=== PATIENT | male | born 1955 | race Caucasian/White ===

== ENCOUNTER 2020-02-22 11:08 | Outpatient (REF) | payer MEDICARE, OTHER, SELFPAY ==
[2020-02-22 14:54] LABS: Alanine Aminotransferase 22 U/L (0-40); Alkaline Phosphatase 43 U/L (39-117); Aspartate Amino Transferase 19 U/L (5-37); Bilirubin Direct 0.3 mg/dL (0.0-0.5); Bilirubin Total 0.4 mg/dL (0.0-1.0); Blood Urea Nitrogen 21 mg/dL (9-16); Cholesterol 113 mg/dL; Estimated Glomerular Filt Rate 53; Glucose Random 115 mg/dL (60-115); HDL Cholesterol 35 mg/dL; Total Protein 6.7 g/dL (6.5-8.0)
[2020-02-22 15:21] LABS: Anion Gap 11 (12-20); Calcium 8.8 mg/dL (8.4-10.2); Carbon Dioxide 24 mmol/L (22-29); Chloride 111 mmol/L (96-108); LDL Cholesterol Calculated 58 mg/dl; Potassium 4.4 mmol/l (3.3-5.1); Sodium 142 mmol/L (135-145); Triglycerides 104 mg/dL
== END 2020-02-22 11:09 | disposition home or self-care (01) ==
LOC: HO.HMGCLDS 11:08
PROVIDERS: PCP Nurse Practitioner Family; Visit Provider Internal Medicine Cardiovascular Disease
DX: I10 Essential (primary) hypertension (principal); I25.10 Atherosclerotic heart disease of native coronary artery without angina pectoris; E78.00 Pure hypercholesterolemia, unspecified
CPT/HCPCS: 80048; 80061; 80076

== ENCOUNTER 2020-08-26 08:54 | Outpatient (REF) | payer MEDICARE, OTHER, SELFPAY ==
[2020-08-26 11:51] LABS: Alanine Aminotransferase 22 U/L (0-40); Albumin Level 4.1 g/dL (3.5-5.0); Alkaline Phosphatase 41 U/L (39-117); Anion Gap 13 (12-20); Aspartate Amino Transferase 17 U/L (5-37); Bilirubin Direct 0.3 mg/dL (0.0-0.5); Bilirubin Total 0.9 mg/dL (0.0-1.0); Blood Urea Nitrogen 32 mg/dL (9-16); Calcium 9.2 mg/dL (8.4-10.2); Carbon Dioxide 26 mmol/L (22-29); Chloride 108 mmol/L (96-108); Cholesterol 121 mg/dL; Estimated Glomerular Filt Rate 46; Glucose Random 113 mg/dL (60-115); HDL Cholesterol 35 mg/dL; LDL Cholesterol Calculated 69 mg/dl; Potassium 4.7 mmol/L (3.3-5.1); Sodium 142 mmol/L (135-145); Total Protein 6.9 g/dL (6.5-8.0); Triglycerides 89 mg/dL
== END 2020-08-26 08:55 | disposition home or self-care (01) ==
LOC: HO.HMGCLDS 08:54
PROVIDERS: PCP Nurse Practitioner Family; Visit Provider Internal Medicine Cardiovascular Disease
DX: E78.00 Pure hypercholesterolemia, unspecified (principal)
CPT/HCPCS: 36415; 80048; 80061; 80076

== ENCOUNTER 2020-10-10 13:27 | Outpatient (REF) | payer MEDICARE, OTHER, SELFPAY ==
[2020-10-10 14:30] LABS: MANUAL DIFF FLAG NO
[2020-10-10 14:36] LABS: Basophils Absolute Auto 0.1 X10*3/uL (0.0-0.2); Basophils Percent Auto 1.2 % (0-2); Eosinophils Absolute Auto 0.2 X10*3/uL (0.0-0.4); Eosinophils Percent Auto 4.1 % (0-4); Hematocrit 41.8 % (42-52); Imm Gran Abs Auto 0.01 X10*3/uL (0.00-0.03); Imm Gran Pct Auto 0.2 % (0.0-0.4); Lymphocytes Absolute Auto 1.3 X10*3/uL (1.2-4.9); Mean Corpuscular HGB Conc 33.5 g/dl (31.0-36.0); Mean Corpuscular Hemoglobin 29.1 pg (27.0-33.0); Mean Corpuscular Volume 86.9 fL (80-98); Mean Platelet Volume 10.1 fL (9.4-12.4); Monocytes Absolute Auto 0.5 X10*3/uL (0.1-1.2); Monocytes Percent Auto 9.2 % (2-11); Neutrophils Absolute Auto 3.1 X10*3/uL (2.0-8.3); Neutrophils Percent Auto 60.3 % (45-73); Platelet Count 197 X10*3/uL (160-400); Red Blood Count 4.81 X10*6/uL (4.60-5.80); Red Cell Distribution Width 13.3 % (11.0-16.0); White Blood Count 5.1 X10*3/uL (4.8-10.8)
[2020-10-10 14:41] LABS: INTERNATIONAL NORM RATIO 1.1 (0.9-1.1); Prothrombin Time 13.2 SEC (10.8-13.0)
[2020-10-10 14:46] LABS: Partial Thromboplastin Time 38.1 SEC (24.1-38.0)
[2020-10-10 14:49] LABS: Alanine Aminotransferase 19 U/L (0-40); Albumin Level 4.3 g/dL (3.5-5.0); Alkaline Phosphatase 47 U/L (39-117); Anion Gap 10 (12-20); Aspartate Amino Transferase 21 U/L (5-37); Bilirubin Total 1.2 mg/dL (0.0-1.0); Blood Urea Nitrogen 29 mg/dL (9-16); Calcium 9.3 mg/dL (8.4-10.2); Carbon Dioxide 24 mmol/L (22-29); Chloride 111 mmol/L (96-108); Estimated Glomerular Filt Rate 42; Glucose Random 99 mg/dL (60-115); Sodium 140 mmol/L (135-145)
== END 2020-10-10 13:28 | disposition home or self-care (01) ==
LOC: HO.HMGCLDS 13:27
PROVIDERS: PCP Nurse Practitioner Family; Visit Provider Nurse Practitioner Family
DX: Z01.818 Encounter for other preprocedural examination (principal); R79.89 Other specified abnormal findings of blood chemistry
CPT/HCPCS: 36415; 80053; 85025; 85610; 85730

== ENCOUNTER 2020-10-13 09:07 | Outpatient (REF) | payer MEDICARE, OTHER, SELFPAY ==
[2020-10-13 12:20] LABS: Blood Urea Nitrogen 23 mg/dL (9-16); Estimated Glomerular Filt Rate 49
== END 2020-10-13 09:08 | disposition home or self-care (01) ==
LOC: HO.HMGCLDS 09:07
PROVIDERS: PCP Nurse Practitioner Family; Visit Provider Nurse Practitioner Family
DX: R79.89 Other specified abnormal findings of blood chemistry (principal)
CPT/HCPCS: 36415; 82565; 84520

== ENCOUNTER 2020-10-25 10:41 | Outpatient (REF) | payer MEDICARE, OTHER, SELFPAY ==
[2020-10-25 14:32] LABS: Estimated Glomerular Filt Rate 52
== END 2020-10-25 10:42 | disposition home or self-care (01) ==
LOC: HO.HMGCLDS 10:41
PROVIDERS: PCP Nurse Practitioner Family; Visit Provider Nurse Practitioner Family
DX: R79.89 Other specified abnormal findings of blood chemistry (principal)
CPT/HCPCS: 36415; 82565

== ENCOUNTER 2022-04-25 06:40 | Outpatient (REF) | payer MEDICARE, OTHER, SELFPAY ==
[2022-04-25 11:35] LABS: Cholesterol 123 mg/dL; HDL Cholesterol 35 mg/dL; LDL Cholesterol Calculated 69 mg/dl; Triglycerides 97 mg/dL
== END 2022-04-25 06:41 | disposition home or self-care (01) ==
LOC: HO.HMGCLDS 06:40
PROVIDERS: Visit Provider Radiology Diagnostic Ultrasound
DX: I25.10 Atherosclerotic heart disease of native coronary artery without angina pectoris (principal)
CPT/HCPCS: 36415; 80061

== ENCOUNTER 2022-10-23 09:27 | Outpatient (REF) | payer MEDICARE, OTHER, SELFPAY ==
[2022-10-23 11:23] LABS: MANUAL DIFF FLAG NO
[2022-10-23 11:35] LABS: Basophils Absolute Auto 0.1 X10*3/uL (0.0-0.2); Basophils Percent Auto 1.4 % (0-2); Eosinophils Absolute Auto 0.4 X10*3/uL (0.0-0.4); Eosinophils Percent Auto 6.8 % (0-4); Hematocrit 37.7 % (42.0-52.0); Hemoglobin 12.6 g/dl (14.0-18.0); Imm Gran Abs Auto 0.01 X10*3/uL (0.00-0.03); Imm Gran Pct Auto 0.2 % (0.0-0.4); Lymphocytes Absolute Auto 1.5 X10*3/uL (1.2-4.9); Lymphocytes Percent Auto 25.3 % (20-40); Mean Corpuscular HGB Conc 33.4 g/dl (31.0-36.0); Mean Corpuscular Hemoglobin 29.3 pg (27.0-33.0); Mean Corpuscular Volume 87.7 fL (80.0-98.0); Mean Platelet Volume 10.4 fL (9.4-12.4); Monocytes Absolute Auto 0.5 X10*3/uL (0.1-1.2); Monocytes Percent Auto 8.4 % (2-11); Neutrophils Absolute Auto 3.4 x10*3/uL (2.0-8.3); Neutrophils Percent Auto 57.9 % (45-73); Platelet Count 193 X10*3/uL (160-400); Red Cell Distribution Width 13.7 % (11.0-16.0); White Blood Count 5.9 X10*3/uL (4.8-10.8)
[2022-10-23 11:48] LABS: Appearance Urine Clear; Color Urine Yellow; Glucose Urine UA Negative (Negative); Leukocyte Esterase Urine Negative (Negative); Nitrite Urine Negative (Negative); PH 5.5 (5.0-9.0); UMIC TRIGGER UACC YES; Urine Blood Negative (Negative); Urine Ketones Negative (Negative); Urine Protein 30 (1+) mg/dL (Neg-Trace)
[2022-10-23 11:51] LABS: Bacteria Urine None Seen (None Seen); RBC Urine 0-2 /HPF (0-2); Squamous Epithelial Cell Urine 0-2 /HPF (0-2); WBC Urine 0-5 /HPF (0-5)
[2022-10-23 12:18] LABS: Prostate Specific Antigen Scr 1.17 ng/mL (<0.05-4.0)
[2022-10-23 12:20] LABS: Alanine Aminotransferase 21 U/L (0-40); Albumin Level 3.9 g/dL (3.5-5.0); Alkaline Phosphatase 41 U/L (39-117); Anion Gap 9 (12-20); Aspartate Amino Transferase 17 U/L (5-37); Bilirubin Total 0.8 mg/dL (0.0-1.0); Blood Urea Nitrogen 30 mg/dL (9-16); Carbon Dioxide 23 mmol/L (22-29); Chloride 111 mmol/L (96-108); Cholesterol 103 mg/dL; Estimated Glomerular Filt Rate 47; Glucose Fasting 110 mg/dL (60-99); HDL Cholesterol 29 mg/dL; LDL Cholesterol Calculated 60 mg/dl; Potassium 4.4 mmol/L (3.3-5.1); Sodium 139 mmol/L (135-145); TSH reflex Free T4 1.75 uIU/mL (0.32-4.0); Total Protein 6.8 g/dL (6.5-8.0); Triglycerides 71 mg/dL
== END 2022-10-23 09:28 | disposition home or self-care (01) ==
LOC: HO.HMGCLDS 09:27
PROVIDERS: PCP Nurse Practitioner Family; Visit Provider Nurse Practitioner Family
DX: Z12.5 Encounter for screening for malignant neoplasm of prostate (principal); I10 Essential (primary) hypertension
CPT/HCPCS: 36415; 80053; 80061; 81001; 84153; 84443; 85025

== ENCOUNTER 2022-10-29 10:37 | Outpatient (REF) | payer MEDICARE, OTHER, SELFPAY ==
[2022-10-29 14:06] LABS: MANUAL DIFF FLAG NO
[2022-10-29 14:13] LABS: Basophils Absolute Auto 0.1 X10*3/uL (0.0-0.2); Basophils Percent Auto 1.1 % (0-2); Eosinophils Absolute Auto 0.3 X10*3/uL (0.0-0.4); Eosinophils Percent Auto 5.2 % (0-4); Hematocrit 37.3 % (42.0-52.0); Hemoglobin 12.7 g/dl (14.0-18.0); Imm Gran Abs Auto 0.02 X10*3/uL (0.00-0.03); Imm Gran Pct Auto 0.4 % (0.0-0.4); Lymphocytes Absolute Auto 1.1 X10*3/uL (1.2-4.9); Lymphocytes Percent Auto 20.4 % (20-40); Mean Corpuscular Hemoglobin 29.6 pg (27.0-33.0); Mean Corpuscular Volume 86.9 fL (80.0-98.0); Mean Platelet Volume 10.5 fL (9.4-12.4); Monocytes Absolute Auto 0.4 X10*3/uL (0.1-1.2); Monocytes Percent Auto 7.7 % (2-11); Neutrophils Absolute Auto 3.5 x10*3/uL (2.0-8.3); Neutrophils Percent Auto 65.2 % (45-73); Platelet Count 200 X10*3/uL (160-400); Red Blood Count 4.29 X10*6/uL (4.60-5.80); Red Cell Distribution Width 13.6 % (11.0-16.0); White Blood Count 5.3 X10*3/uL (4.8-10.8)
[2022-10-29 14:14] LABS: Immature Retic Fraction 14.5 % (2.3-13.4); Retic HGB Equivalent 33.1 pg (30.0-35.0); Reticulocyte Percent 1.7 % (0.5-1.8); Reticulocytes Absolute 0.072 X10*6/uL (0.026-0.095)
[2022-10-29 14:21] LABS: Appearance Urine Clear; Color Urine Yellow; Glucose Urine UA Negative (Negative); Leukocyte Esterase Urine Negative (Negative); Nitrite Urine Negative (Negative); UMIC TRIGGER UACC YES; Urine Blood Negative (Negative); Urine Ketones Negative (Negative); Urine Protein 100 (2+) mg/dL (Neg-Trace)
[2022-10-29 14:33] LABS: Iron 92 mcg/dL (45-160); Percent Iron Saturation 30 % (15-50); Total Iron Binding Capacity 305 mcg/dL (228-428); Unsaturated Iron Binding 213 ug/dL
[2022-10-29 14:38] LABS: Bacteria Urine None Seen (None Seen); Hyaline Casts Urine 0-2 /LPF (0-2); RBC Urine 0-2 /HPF (0-2); Squamous Epithelial Cell Urine 0-2 /HPF (0-2); WBC Urine 0-5 /HPF (0-5)
[2022-10-29 14:52] LABS: Ferritin 100 ng/mL (20-250)
[2022-10-29 14:59] LABS: Folate 14.2 ng/mL (> or = 4.0); Vitamin B12 576 pg/mL (200-900)
[2022-10-30 17:04] LABS: Anion Gap 10 (12-20)
[2022-10-30 17:08] LABS: Alanine Aminotransferase 18 U/L (0-40); Alkaline Phosphatase 41 U/L (39-117); Aspartate Amino Transferase 18 U/L (5-37); Bilirubin Total 0.9 mg/dL (0.0-1.0); Blood Urea Nitrogen 23 mg/dL (9-16); Calcium 9.5 mg/dL (8.4-10.2); Carbon Dioxide 25 mmol/L (22-29); Chloride 110 mmol/L (96-108); Estimated Glomerular Filt Rate 47; Glucose Random 108 mg/dL (60-115); Sodium 140 mmol/L (135-145); Total Protein 6.8 g/dL (6.5-8.0)
== END 2022-10-29 10:38 | disposition home or self-care (01) ==
LOC: HO.HMGCLDS 10:37
PROVIDERS: PCP Nurse Practitioner Family; Visit Provider Nurse Practitioner Family
DX: R79.89 Other specified abnormal findings of blood chemistry (principal)
CPT/HCPCS: 36415; 80053; 81001; 82607; 82728; 82746; 83540; 85025; 85045

== ENCOUNTER 2022-10-30 | Outpatient (REF) | payer MEDICARE, OTHER, SELFPAY ==
[2022-10-31 12:18] LABS: FIT Int Ctl YES; FIT1 NEGATIVE (NEGATIVE); FIT2 NEGATIVE (NEGATIVE)
== END 2022-10-30 00:01 | disposition home or self-care (01) ==
LOC: HO.LNP
PROVIDERS: Visit Provider Nurse Practitioner Family
DX: R79.89 Other specified abnormal findings of blood chemistry (principal)
CPT/HCPCS: 82274

== ENCOUNTER 2022-10-31 08:40 | Outpatient (REF) | payer MEDICARE, OTHER, SELFPAY | END 2022-10-31 08:41 | disposition home or self-care (01) | LOC: HO.HMGCLNP 08:40 | PROVIDERS: PCP Nurse Practitioner Family; Visit Provider Nurse Practitioner Family | DX: Z13.89 Encounter for screening for other disorder (principal) | CPT/HCPCS: 82274 ==

== ENCOUNTER 2022-12-28 07:12 | Day surgery (SDC) | payer MEDICARE, OTHER, SELFPAY ==
--- NOTE | 2022-12-27 12:16 | HO.ANESPROP2 ---
Documented by User: Becki Alberto NP 12/27/22 14:35 HPI - Anesthesia Eval Consult details Narrative: 67yo M for Colonoscopy Follows [facility] for CAD with PA/stents 2006, 2017 and afib (no OAC). Stable from cardiac standpoint with weight loss and walking per last office visit 10/2022. [facility] Active Problems Active Problems: All Active Problems (Updated 10/23/22 @ 12:53 by Tyler Adams, [facility]) Elevated serum creatinine (Acute) Screening for colon cancer (Acute) Encounter for prostate cancer screening (Acute) HTN (hypertension) (Acute) Gout flare (Acute) Pre-op evaluation (Acute) Left hip pain (Acute) Lower back pain (Acute) Past Medical History Medical History Coronary artery disease Dyslipidemia Elevated serum creatinine Gout HTN (hypertension) Multiple lipomas Myocardial infarct Osteoarthritis Paroxysmal A-fib PVD (peripheral vascular disease) Family History Family History Father Substance use disorder Mother No problems noted. Brother No problems noted. Sister No problems noted. Son No problems noted. Daughter No problems noted. Surgical History Surgical History H/O heart artery stent No pertinent past surgical history Stented coronary artery Social History Social History Housing: House Alcohol intake: current Alcohol intake frequency: a few times a week Patient Tobacco Use Status: Former Tobacco user Quit Date: 15 years ago e-Cigarette/Vaping Use: Never Used Second Hand Smoke Exposure: No Use of substances other than those prescribed or required for medical reasons: No Are you DNR?: No Advance Directives: No Advance Directives Information Provided: Yes service: No Current occupational status: retired Cognitive needs: No Hearing needs: No Vision needs: No Meds Allergies Allergy/AdvReac Type Severity Reaction Status Date / Time Sulfa (Sulfonamide Allergy Unknown CHILDHOOD- Verified 10/09/22 13:28 Antibiotics) ? RXN, as [SULFA(SULFONAMIDE a child ANTIBIOTICS)] Home Medications Medication Instructions Recorded Confirmed Last Taken Type aspirin 81 mg tablet,delayed 81 mg PO DAILY 03/09/20 12/28/22 12/28/22 History release (Adult Low Dose Aspirin) dorzolamide 22.3 mg-timolol 6.8 1 drp ophthalmic (eye) BID 03/09/20 12/28/22 Unknown History mg/mL eye drops latanoprost 0.005 % eye drops 1 drp ophthalmic (eye) DAILY 03/09/20 12/28/22 Unknown History lisinopril 40 mg tablet 40 mg PO DAILY 03/09/20 12/28/22 12/28/22 History rosuvastatin 40 mg tablet (Crestor) 40 mg PO DAILY 03/09/20 12/28/22 12/28/22 History amlodipine 10 mg tablet 10 mg PO DAILY 10/09/22 12/28/22 12/28/22 History metoprolol succinate 100 mg 100 mg PO DAILY 10/09/22 12/28/22 12/28/22 History tablet,extended release 24 hr Exam Exam Date and Time: December 27, 2022 1216 Pertinent Lab Results Pertinent Lab Results: Laboratory Tests 10/29/22 10/29/22 10:42 10:42 WBC 5.3 Hgb 12.7 L Hct 37.3 L Plt Count 200 Sodium 140 Potassium 5.0 Chloride 110 H Carbon Dioxide 25 BUN 23 H Creatinine 1.49 H Narrative Narrative: EKG 10/2022 SB @ 49 Assessment and Plan Assessment Anesthesia Assessment: Chart Reviewed Documented by User: Inez Rucker MD 12/28/22 09:58 [facility] Past Medical History Medical History Coronary artery disease Dyslipidemia Elevated serum creatinine Gout HTN (hypertension) Multiple lipomas Myocardial infarct Osteoarthritis Paroxysmal A-fib PVD (peripheral vascular disease) Family History Family History Father Substance use disorder Mother No problems noted. Brother No problems noted. Sister No problems noted. Son No problems noted. Daughter No problems noted. Surgical History Surgical History H/O heart artery stent No pertinent past surgical history Stented coronary artery History of Problems with Anesthesia: No Social History Social History Housing: House Alcohol intake: current Alcohol intake frequency: a few times a week Patient Tobacco Use Status: Former Tobacco user Quit Date: 15 years ago e-Cigarette/Vaping Use: Never Used Second Hand Smoke Exposure: No Use of substances other than those prescribed or required for medical reasons: No Are you DNR?: No Advance Directives: No Advance Directives Information Provided: Yes service: No Current occupational status: retired Cognitive needs: No Hearing needs: No Vision needs: No Meds Allergies Allergy/AdvReac Type Severity Reaction Status Date / Time Sulfa (Sulfonamide Allergy Unknown CHILDHOOD- Verified 10/09/22 13:28 Antibiotics) ? RXN, as [SULFA(SULFONAMIDE a child ANTIBIOTICS)] Home Medications Medication Instructions Recorded Confirmed Last Taken Type aspirin 81 mg tablet,delayed 81 mg PO DAILY 03/09/20 12/28/22 12/28/22 History release (Adult Low Dose Aspirin) dorzolamide 22.3 mg-timolol 6.8 1 drp ophthalmic (eye) BID 03/09/20 12/28/22 Unknown History mg/mL eye drops latanoprost 0.005 % eye drops 1 drp ophthalmic (eye) DAILY 03/09/20 12/28/22 Unknown History lisinopril 40 mg tablet 40 mg PO DAILY 03/09/20 12/28/22 12/28/22 History rosuvastatin 40 mg tablet (Crestor) 40 mg PO DAILY 03/09/20 12/28/22 12/28/22 History amlodipine 10 mg tablet 10 mg PO DAILY 10/09/22 12/28/22 12/28/22 History metoprolol succinate 100 mg 100 mg PO DAILY 10/09/22 12/28/22 12/28/22 History tablet,extended release 24 hr Exam Airway Neck ROM: Full Denture: Upper Loose/Missing/Broken Teeth: Yes and Upper Heart: RRR Lungs: CTA Assessment and Plan Assessment Anesthesia Assessment: Anesthesia Plan Discussed Final Anesthetic Review History of Problems with Anesthesia: No NPO: Yes ASA Class: III Final Preanesthetic Review: Meds/Allgs Chart Reviewed, Consent Obtained/Reviewed and Anes Risks/Benef Reviewed Patient Risk: Intermediate Procedure Risk: Low Anesthetic Plan Anesthetic Plan: MAC: Disposition: Standard PACU
[2022-12-28 08:34] VITALS: BMI 34.3
[2022-12-28 08:38] VITALS: BMI 34.3
[2022-12-28 08:50] VITALS: BP 141/73; PULSE 54; RESP 18; TEMP 36.1; O2SAT 97
[2022-12-28] MEDS: Lactated Ringers 1,000 ML 100 ML IVCONT (09:08)
--- NOTE | 2022-12-28 09:41 | MHC.SHP ---
Pre-Procedural Eval Section A Date of Service: 12/28/22 Section B Chief Complaint: Hemorrhage of anus and rectum Details of Present Illness: see h&p no changes Relevant Family History (Specify if Yes): No Relevant Social History: None Present Medications: see Short Stay Collaborative assessment Medical History: No relevant PMH History of Previous Operations: No relevant previous surgery Allergies: Allergies Allergy/AdvReac Type Severity Reaction Status Date / Time Sulfa (Sulfonamide Allergy Unknown CHILDHOOD- Verified 10/09/22 13:28 Antibiotics) ? RXN, as [SULFA(SULFONAMIDE a child ANTIBIOTICS)] Review of Systems Sugical H&P ROS: Negative: Constitution, Cardiovascular, Respiratory, Neurological, Psychiatric, Hem-Onc, Allergic/Immunologic, Gastrointestinal, Genitourinary, Musculoskeletal, Integumentary, Endocrine and Eyes/Ears/Nose/Throat Exam Surgical H&P Exam: Normal: HEENT, Normal: Heart, Normal: Lungs, Normal: Extremities, Normal: Abdomen, Normal: Skin and Normal: Neurological Plan Diagnosis/Plan: Unchanged I have reviewed the history and physical and performed a pertinent physical examination on my patient. No changes have occurred unless specified. Time Spent With Patient Time: Total time managing care of this patient today ____ minutes.
[2022-12-28 10:17] VITALS: BP 140/47; PULSE 46; RESP 20; TEMP 36.2; O2SAT 98
--- NOTE | 2022-12-28 10:21 | PM.OP ---
Brief Operative Note Date of Service: 12/28/22 Pre-op diagnosis: screening Post-op diagnosis: same Procedure: colonoscopy Surgeon: Lewis Pozo Anesthesia: MAC Was an Mat Cleaning Machine Operator used for this Procedure?: No Estimated blood loss (mL): 0 Pathology: other Condition: stable Disposition: PACU
[2022-12-28 10:32] VITALS: BP 129/70; PULSE 48; RESP 18; TEMP 36.1; O2SAT 98
--- NOTE | 2022-12-28 10:51 | OP_ITS ---
DATE OF SERVICE: 12/28/2022 SURGEON: Lewis Pozo MD INDICATIONS: Colon cancer screening, prior history of adenomatous colon polyps. PREOPERATIVE DIAGNOSIS: POSTOPERATIVE DIAGNOSIS: PROCEDURE PERFORMED: Colonoscopy to the terminal ileum. ESTIMATED BLOOD LOSS: COMPLICATIONS: ANESTHESIA: Monitored anesthesia care. ASSISTANTS: SPECIMENS: DESCRIPTION OF PROCEDURE: A history and physical was performed. The risks and benefits of the procedure were explained to the patient. Informed consent was obtained. The patient was placed in left lateral decubitus position. A digital rectal exam was performed and was found to be normal. The Olympus pediatric video colonoscope was introduced into the rectum and advanced to the cecum. The cecum was identified by transillumination, palpation, and identification of the ileocecal valve. Examination was performed. The scope was removed. He tolerated the procedure well and was returned to the recovery area in stable condition. FINDINGS: The terminal ileum was examined and appeared normal. The visualized colonic mucosa was normal. The quality of the prep was good. No polyps were identified. There was mild sigmoid diverticulosis. Retroflexed examination showed moderate-sized internal hemorrhoids. IMPRESSION: Normal screening colonoscopy. RECOMMENDATION: 1. Follow up as needed. 2. Repeat colonoscopy is recommended in 10 years for average risk individuals. This will be optional based on the patient's current age. MD NEFTALI Fortune/WILIAN / [phone]
== END 2022-12-28 11:10 | disposition home or self-care (01) ==
PROVIDERS: PCP Nurse Practitioner Family; Visit Provider Internal Medicine Gastroenterology
PROC: 0DJD8ZZ Inspection of Lower Intestinal Tract, Via Natural or Artificial Opening Endoscopic (ICD-10-PCS; CPT 45378; principal; 2022-12-28 08:50)
DX: Z12.11 Encounter for screening for malignant neoplasm of colon (principal); Z86.010 Personal history of colon polyps; K57.30 Diverticulosis of large intestine without perforation or abscess without bleeding; K64.8 Other hemorrhoids; I25.10 Atherosclerotic heart disease of native coronary artery without angina pectoris; Z95.5 Presence of coronary angioplasty implant and graft; I25.2 Old myocardial infarction; I10 Essential (primary) hypertension; E78.5 Hyperlipidemia, unspecified; Z79.82 Long term (current) use of aspirin; Z79.899 Other long term (current) drug therapy; Z87.891 Personal history of nicotine dependence
CPT/HCPCS: G0105

== ENCOUNTER 2023-12-14 09:17 | Outpatient (AMB) | payer MEDICARE, OTHER, SELFPAY ==
[2023-12-14 10:07] VITALS: BP 140/72; PULSE 72; TEMP 36.6; O2SAT 97
--- NOTE | 2023-12-14 10:07 | MHC.OFFWIV ---
Intake Vital Signs 12/14/23 10:07 Height 5 ft 10 in BP 140/72 H Blood Pressure Location Lt brachial Position Sitting Pulse 72 Pulse Source Pulse Oximeter Temp 97.8 F Temp Source Oral Pulse Oximetry (%) 97 Oxygen Delivery Method Room Air Intake Visit Reasons: EP RT toe Gout/injury Intake Note: pt is here for right toe gout Patient Tobacco Use Status: Former Tobacco user Allergies Sulfa (Sulfonamide Antibiotics) [SULFA(SULFONAMIDE ANTIBIOTICS)] Allergy (Unknown, Verified 12/17/23 10:11) CHILDHOOD- ? RXN, as a child Do you need a note to return to daycare/school/sports/work: No HPI EP RT toe Gout/injury HPI Details Patient is a 68-year-old male who comes to the walk-in clinic complaining of persistent swelling and redness to the right toe. Reports that he has a known history of gout, and is not on prophylactic medication, and does not have a standing order for medication to treat flare-ups. He reports he has had multiple flare-ups over the last few years, and had discussed it with forensic nurse who mentioned in his last note writing him colchicine if his BNP had improved. He reports that his symptoms of pain have been definitely improved, the toe is still swollen red and warm to the touch. He discuss this with his nurse girlfriend who reports that she is worried about cellulitis. Patient denies any symptoms of fever or chills, weakness or dizziness, myalgias or malaise or other associated symptoms. [facility] Medical History Stage 3 chronic kidney disease Elevated serum creatinine Gout Multiple lipomas PVD (peripheral vascular disease) Osteoarthritis Dyslipidemia Myocardial infarct HTN (hypertension) Paroxysmal A-fib Coronary artery disease Surgical History Stented coronary artery H/O heart artery stent No pertinent past surgical history Family History Father Substance use disorder Mother No problems noted. Brother No problems noted. Sister No problems noted. Son No problems noted. Daughter No problems noted. Social History Housing: House Alcohol intake: current Alcohol intake frequency: a few times a week Patient Tobacco Use Status: Former Tobacco user e-Cigarette/Vaping Use: Never Used Second Hand Smoke Exposure: No service: No Current occupational status: retired Cognitive needs: No Hearing needs: No Vision needs: No Physical Exam Vital Signs: Last Vital Signs Temp 97.8 F 12/14/23 10:07 Pulse 72 12/14/23 10:07 BP 140/72 H 12/14/23 10:07 Pulse Ox 97 12/14/23 10:07 Oxygen Delivery Method Room Air 12/14/23 10:07 Extrem Other: Patient has edema to the MCP and PIP of the right great toe, with no appreciable erythema or warmth. He has limited flexion at the joints. Neurovascularly intact distally with good cap refill. No deformity, ecchymosis or other likely trauma besides the edema. Assessment & Plan Assessment & Plan (1) Gout: Code(s): M10.9 - Gout, unspecified Qualifiers: Chronicity: chronic Gout etiology: unspecified cause Gout site: toe Laterality: right Presence of tophus: without tophus Qualified Code(s): M1A.9XX0 - Chronic gout, unspecified, without tophus (tophi) Plan Patient is a 68-year-old male with delayed recurrent presentation of gout to the right toe. He reports that his pain level has improved significantly, however he still has persistent swelling and a little redness and warmth to the joint a few weeks out from flare up. Likely this is due to not treating the flare up early, and then there was blunt trauma when he struck the toe on a step. Plain film x-ray today of the foot shows some visible arthritic changes which may be due to gouty arthritis, but no acute trauma. Due to him being on anticoagulation, it is most appropriate to use colchicine for recurrent flare ups, per forensic nurse note. His forensic nurse was surprised that he did not have a colchicine prescription already, and had offered to write it for him if his repeat BMP showed improved kidney function. Therefore, I wrote him an order to have that checked today, and he can have a temporary refill to see if this flare-up improves more with colchicine. He has follow-up with PCP soon also, and can discuss this further with him at that point. 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
== END 2023-12-14 11:15 | disposition home or self-care (01) ==
PROVIDERS: PCP Nurse Practitioner Family; Visit Provider Physician Assistant Medical
DX: M1A.9XX0 Chronic gout, unspecified, without tophus (tophi) (principal)
CPT/HCPCS: 99214

== ENCOUNTER 2023-12-14 10:45 | Outpatient (REF) | payer MEDICARE, OTHER, SELFPAY ==
--- NOTE | ~2023-12-14 | XR_ITS ---
EXAMINATION: XR FOOT, RIGHT CLINICAL INFORMATION: Pain COMPARISON: None available. TECHNIQUE: AP, lateral, and oblique views of the right foot. FINDINGS: No acute visible fracture or dislocation. Multi joint arthritic changes. Plantar calcaneal heel spur. Mild spurring the dorsal midfoot and forefoot. Joint space alignment otherwise maintained. Soft tissues are unremarkable. XR/XR foot RT min 3V IMPRESSION: 1. No acute visible fracture or dislocation. 2. Multi joint arthritic changes.
[2023-12-14 13:14] LABS: Anion Gap 12 (12-20); Blood Urea Nitrogen 16 mg/dL (9-16); Calcium 9.6 mg/dL (8.4-10.2); Carbon Dioxide 24 mmol/L (22-29); Chloride 110 mmol/L (96-108); Estimated Glomerular Filt Rate 51; Glucose Random 107 mg/dL (60-115); Potassium 4.5 mmol/L (3.3-5.1); Sodium 141 mmol/L (135-145)
== END 2023-12-14 10:46 | disposition home or self-care (01) ==
LOC: HO.HMGCX 10:45
PROVIDERS: PCP Nurse Practitioner Family; Visit Provider Physician Assistant Medical
DX: M10.9 Gout, unspecified (principal); M79.671 Pain in right foot
CPT/HCPCS: 36415; 73630; 80048

== ENCOUNTER 2023-12-17 09:53 | Outpatient (AMB) | payer MEDICARE, OTHER, SELFPAY ==
[2023-12-17 09:56] VITALS: BP 138/70; PULSE 50; O2SAT 96; BMI 32.3
--- NOTE | 2023-12-17 09:56 | MHC.PC.OV ---
Vital Signs 12/17/23 09:56 Height 5 ft 10 in Weight 225 lb BMI 32.3 BP 138/70 Blood Pressure Location Rt brachial Position Sitting Pulse 50 Pulse Source Pulse Oximeter Pulse Oximetry (%) 96 Intake Visit Reasons: F/u Intake Note: pt is here for follow up Cycle Consultant Required: No Accompanied by: Self / Same As Patient Allergies Sulfa (Sulfonamide Antibiotics) [SULFA(SULFONAMIDE ANTIBIOTICS)] Allergy (Unknown, Verified 12/17/23 10:11) CHILDHOOD- ? RXN, as a child Medication List - Last Reconciled 12/17/23 by HORACIO Collins amlodipine 5 mg PO DAILY aspirin (Adult Low Dose Aspirin) 81 mg PO DAILY colchicine 0.6 mg PO BID dorzolamide-timolol 22.3-6.8 mg/mL 1 drp ophthalmic (eye) BID latanoprost 0.005% 1 drp ophthalmic (eye) DAILY lisinopril 40 mg PO DAILY metoprolol succinate ER 50 mg PO DAILY prednisone 60 mg (3 x 20 mg) PO DAILY 6 days rosuvastatin (Crestor) 40 mg PO DAILY Tobacco use date assessed: 12/17/23 Fall risk assessment: No Falls in past year Last assessed Fall Risk: 12/17/23 Dental Screening Dental Screen Date: 12/17/23 Did you have a dental visit in the last 12 months?: Yes Did you have a dental problem in the last 6 months where you did not have access to dental care?: No Was dental information given to patient?: Patient has dentist HPI F/u HPI Details HTN: Blood pressure is stable, managed with amlodipine 5mg, lisinopril 40mg, and metoprolol 50mg. Pt reports that his blood pressure at home is mostly in the 120s/70s. Denies chest pain, shortness of breath, headache, dizziness, and blurred vision. Pt is following up with cardiology. Pt has a hx of gout. He has colchicine at home. Will send prednisone. Pt knows to contact me if he has greater than 3 attacks per year. Will check uric acid. [facility] Medical History Stage 3 chronic kidney disease Elevated serum creatinine Gout Multiple lipomas PVD (peripheral vascular disease) Osteoarthritis Dyslipidemia Myocardial infarct HTN (hypertension) Paroxysmal A-fib Coronary artery disease Surgical History Stented coronary artery H/O heart artery stent No pertinent past surgical history Family History Father Substance use disorder Mother No problems noted. Brother No problems noted. Sister No problems noted. Son No problems noted. Daughter No problems noted. Social History Housing: House Alcohol intake: current Alcohol intake frequency: a few times a week Patient Tobacco Use Status: Former Tobacco user e-Cigarette/Vaping Use: Never Used Second Hand Smoke Exposure: No service: No Current occupational status: retired Cognitive needs: No Hearing needs: No Vision needs: No Questionnaire PHQ-9 Over the last 2 weeks, how often have you been bothered by any of the following problems? 84041 - PHQ-9 Billing: Patient declined-do not bill Source: Developed by Drs. Tom Paris, Tata Miller, Kash Nation and colleagues, with an educational christy from [employer] Thrive Questionnaire Date Thrive assessed: 12/17/23 I am a: Patient What is your living situation today?: I have a steady place to live Within the past 12 months, did the food you bought not last and you didn't have the money to get more?: I choose not to answer this question Within the past 12 months, did you worry whether your food would run out before you got money to buy more?: I choose not to answer this question Do you have trouble paying for medicines?: I choose not to answer this question Do you have trouble getting transportation to medical appointments?: I choose not to answer this question Do you have trouble paying your heating and electricity bill?: I choose not to answer this question Do you have trouble taking care of your child, family member or friend?: I choose not to answer this question Do you have trouble with day-to-day activities such as bathing, preparing meals, shopping, managing finances, etc.?: I choose not to answer this question Are you currently unemployed and looking for a job?: I choose not to answer this question Are you interested in more education?: I choose not to answer this question Please select the resources that you would like help with: Housing/Skilled Nursing Currently or been in a relationship where the following occur: I choose not to answer THRIVE Score: 0 AUDIT C Alcohol Use Questionnaire (AUDIT-C) 1. How often do you have a drink containing alcohol?: 2-4 times a month 2. How many drinks containing alcohol do you have on a typical day when you are drinking?: 1 or 2 3. How often do you have six or more drinks on one occasion?: Never Total Score: 2 Score Reviewed/Action Taken: Yes LEON-7 AMB Questionnaire LEON-7 Date LEON - 7 assessed: 12/17/23 Feeling nervous, anxious, or on edge: 0 = Not at all Not being able to stop or control worryin = Not at all Worrying too much about different things: 0 = Not at all Trouble relaxin = Not at all Being so restless that it is hard to sit still: 0 = Not at all Becoming easily annoyed or irritable: 0 = Not at all Feeling afraid as if something awful might happen: 0 = Not at all Total LEON-7 score (0-4 normal; 5-9 mild; 10-14 moderate; 15-21 severe): 0 Source: Developed by Drs. Tom Paris, Tata Miller, Kash Nation and colleagues, with an educational christy from [employer] LEON-7 Assessment Billing LEON-7 Assessment Tool: LEON-7 Assessment 60070 Review of Systems Const Reports as per HPI Physical exam (Primary Care) Vital Signs: Last Vital Signs Pulse 50 12/17/23 09:56 BP 138/70 12/17/23 09:56 Pulse Ox 96 12/17/23 09:56 BMI result Body Mass Index 32.3 Tobacco/Smoking Status: Tobacco use Status Tobacco use date assessed 12/17/23 12/17/23 09:57 Patient Tobacco Use Status Former Tobacco user 12/17/23 09:57 e-Cigarette/Vaping Use Never Used 12/17/23 09:57 Thrive Assessment: Date of Thrive Assessment Date Thrive assessed 12/17/23 12/17/23 09:57 Currently or been in a relationship where the following occur: I choose not to answer Const General: cooperative Orientation/consciousness: patient oriented x3 Resp Effort & Inspection: normal respiratory effort Auscultation: clear to auscultation bilaterally Cardio Rate: bradycardic Rhythm: regular rhythm Heart sounds: S1 normal heart sound present and S2 normal heart sound present Neuro General: patient oriented x3 Extrem Other: right MTP joint no tenderness with palpation, no swelling, able to flex and extend toe without difficulty Psych Appearance: grossly normal Mental Status: mental status grossly normal Speech and movement: Normal speech and movement present Affect: normal affect Attitude: cooperative Thought process: Normal thought process present Thought content: Normal thought content present Insight: Good insight present (Psych) Judgement: Good judgement present (Psych) Assessment and Plan Assessment & Plan (1) Gout flare: Code(s): M10.9 - Gout, unspecified Plan: Uric acid ordered, prednisone sent, pt knows to contact me if he has greater than 3 attacks per year. (2) HTN (hypertension): Code(s): I10 - Essential (primary) hypertension Plan: Stable (3) Encounter for prostate cancer screening: Code(s): Z12.5 - Encounter for screening for malignant neoplasm of prostate Plan The patient agreed to the use of a medical support assistant for this encounter. Scribed for KELLY Cabrera-BC by Liz Nix medical support assistant, on 12/17/2023 at 10:10 EST. Orders: Orders Complete Blood Count Auto Diff Today I10 - Essential (primary) hypertension UA CC w/rflx Micro + Cult Today I10 - Essential (primary) hypertension Prostate Specific Antigen Scr Today Z12.5 - Encounter for screening for malignant neoplasm of prostate Comprehensive [place]. Panel Fast Today I10 - Essential (primary) hypertension TSH reflex Free T4 Today I10 - Essential (primary) hypertension Lipid Panel Today I10 - Essential (primary) hypertension Uric Acid Today M10.9 - Gout, unspecified Medications: New prednisone 60 mg (3 x 20 mg) PO DAILY 6 days 18 tabs 2RF Coding Level of Care Code Est Pt Level 3 (85647) Diagnoses Gout flare M10.9 HTN (hypertension) I10 Encounter for prostate cancer screening Z12.5 Additional Codes LEON-7 Assessment Billing - LEON-7 Assessment Tool: LEON-7 Assessment 54838 ([id number])
== END 2023-12-17 12:59 | disposition home or self-care (01) ==
PROVIDERS: PCP Nurse Practitioner Family; Visit Provider Nurse Practitioner Family
DX: M10.9 Gout, unspecified (principal); I10 Essential (primary) hypertension; Z12.5 Encounter for screening for malignant neoplasm of prostate
CPT/HCPCS: 99213

== ENCOUNTER 2024-04-23 11:18 | Outpatient (AMB) | payer MEDICARE, OTHER, SELFPAY ==
[2024-04-23 11:24] VITALS: BP 140/72; PULSE 60; O2SAT 97; BMI 33.6
--- NOTE | 2024-04-23 11:24 | MHC.PC.OV ---
Vital Signs 04/23/24 11:24 Height 5 ft 10 in Weight 234 lb BMI 33.6 BP 140/72 H Blood Pressure Location Rt brachial Position Sitting Pulse 60 Pulse Source Pulse Oximeter Pulse Oximetry (%) 97 Intake Visit Reasons: follow up Service Greeter Required: No Accompanied by: Self / Same As Patient Allergies Sulfa (Sulfonamide Antibiotics) [SULFA(SULFONAMIDE ANTIBIOTICS)] Allergy (Unknown, Verified 04/23/24 16:59) CHILDHOOD- ? RXN, as a child Medication List - Last Reconciled 04/23/24 by Tyler Adams, [facility]- amlodipine 5 mg PO DAILY aspirin (Adult Low Dose Aspirin) 81 mg PO DAILY colchicine 0.6 mg PO BID dorzolamide-timolol 22.3-6.8 mg/mL 1 drp ophthalmic (eye) BID latanoprost 0.005% 1 drp ophthalmic (eye) DAILY lisinopril 40 mg PO DAILY metoprolol succinate ER 50 mg PO DAILY rosuvastatin (Crestor) 40 mg PO DAILY Tobacco use date assessed: 12/17/23 Fall risk assessment: No Falls in past year Last assessed Fall Risk: 04/23/24 Dental Screening Dental Screen Date: 12/17/23 HPI follow up HPI Details Chief Complaint Follow-up visit for hypertension management. History of Present Illness The patient is a 69-year-old male presenting with a follow-up for hypertension. He denies experiencing any shortness of breath, chest pain, blurred vision, headaches, fever, or chills. The patient has a history of following up with a legal librarian annually for his hypertension. He reports home blood pressure readings have improved, averaging in the low 130s/70s to low 80s. No new symptoms have been reported since the last cardiology visit, and he continues to monitor his blood pressure regularly. Social History - Reports regular monitoring of blood pressure at home. - Reports obesity. Health Maintenance Review of Systems - Cardiovascular: Denies chest pain. - Respiratory: Denies shortness of breath. - Neurological: Denies blurred vision, headaches. - General: Denies fever, chills. Physical Exam General: Cooperative, healthy appearing, comfortable, no acute distress and well developed Orientation: Patient oriented x3 Limitations: No limitations Head: Normal to inspection Ears: Hearing grossly normal bilaterally Nose: Normal external nose present Face and sinus: Normal facial exam Eyes: Appearance normal, both eyes and all related structures Neck: Normal visual inspection and Yes full ROM Respiratory: Normal respiratory effort and able to speak in complete sentences. Clear to auscultation bilaterally Cardiovascular: Regular rate and rhythm. Normal S1 and S2 GI: Normal to inspection. Soft to palpation and nontender Skin: No rashes or lesions noted Neuro: Patient oriented x3 Extremities: Obese, no edema noted Results Plan - Monitor and continue current hypertension management. - Follow-up with cardiology annually advised. - Encourage regular blood pressure monitoring. Patient was informed and verbally consented to the use of an ambient scribe for clinic note documentation during this visit. Discussion Notes During the visit, we discussed the patient's current state of hypertension, highlighting improvements in home blood pressure measurements. I emphasized maintaining his current management and encouraged regular monitoring at home. We agreed on the importance of annual cardiology follow-ups to continue monitoring and managing his condition. We did not discuss any changes in medication or additional diagnostic studies, as no new symptoms were presented. Patient Instructions - Continue monitoring your blood pressure regularly at home. - Maintain your current medication regimen for hypertension. - Follow up with your legal librarian annually. - Notify us if you experience any new symptoms such as chest pain, shortness of breath, or vision changes. PFSH Medical History Stage 3 chronic kidney disease Elevated serum creatinine Gout Multiple lipomas PVD (peripheral vascular disease) Osteoarthritis Dyslipidemia Myocardial infarct HTN (hypertension) Paroxysmal A-fib Coronary artery disease Surgical History Stented coronary artery H/O heart artery stent No pertinent past surgical history Family History Father Substance use disorder Mother No problems noted. Brother No problems noted. Sister No problems noted. Son No problems noted. Daughter No problems noted. Social History Housing: House Alcohol intake: current Alcohol intake frequency: a few times a week Patient Tobacco Use Status: Former Tobacco user e-Cigarette/Vaping Use: Never Used Second Hand Smoke Exposure: No service: No Current occupational status: retired Cognitive needs: No Hearing needs: No Vision needs: No Questionnaire Thrive Questionnaire Date Thrive assessed: 04/23/24 I am a: Patient What is your living situation today?: I have a steady place to live Within the past 12 months, did the food you bought not last and you didn't have the money to get more?: I choose not to answer this question Within the past 12 months, did you worry whether your food would run out before you got money to buy more?: I choose not to answer this question Do you have trouble paying for medicines?: I choose not to answer this question Do you have trouble getting transportation to medical appointments?: I choose not to answer this question Do you have trouble paying your heating and electricity bill?: I choose not to answer this question Do you have trouble taking care of your child, family member or friend?: I choose not to answer this question Do you have trouble with day-to-day activities such as bathing, preparing meals, shopping, managing finances, etc.?: I choose not to answer this question Are you currently unemployed and looking for a job?: I choose not to answer this question Are you interested in more education?: I choose not to answer this question Please select the resources that you would like help with: None Currently or been in a relationship where the following occur: I choose not to answer THRIVE Score: 0 LEON-7 AMB Questionnaire LEON-7 Date LEON - 7 assessed: 12/17/23 Source: Developed by Drs. Tom Paris, Tata Miller, Kash Nation and colleagues, with an educational christy from [employer]. Physical exam (Primary Care) Vital Signs: Last Vital Signs Pulse 60 04/23/24 11:24 BP 140/72 H 04/23/24 11:24 Pulse Ox 97 04/23/24 11:24 BMI result Body Mass Index 33.6 Tobacco/Smoking Status: Tobacco use Status Tobacco use date assessed 12/17/23 04/23/24 11:25 Patient Tobacco Use Status Former Tobacco user 04/23/24 11:25 e-Cigarette/Vaping Use Never Used 04/23/24 11:25 Thrive Assessment: Date of Thrive Assessment Date Thrive assessed 04/23/24 04/23/24 11:25 Currently or been in a relationship where the following occur: I choose not to answer Immunizations pneumoc 20-wendy conj-dip cr(PF) 0.5 mL IM syringe Performing Provider: HORACIO Collins Performing Location: [facility] Administered by: Frankie Corbin CMA on 04/23/24 12:31 Dose Route Admin Location Dispensed Lot Number Expiration Date NDC Inspector Plumbing 0.5 mL IM Right Deltoid 0.5 mL [id number] 08/23/25 9455-1638-12 [employer] VIS Given Date VIS Provided VIS Publication Date 04/23/24 Single Vaccine 21 Eligibility Eligibility Date Funding Source Not [facility] Eligible 04/23/24 Private Coding Level of Care Code Est Pt Level 3 (51335) Diagnoses HTN (hypertension) I10 Assessment & Plan Assessment & Plan (1) HTN (hypertension): Code(s): I10 - Essential (primary) hypertension Category: Medical Plan . Orders: Orders Pneumococcal 20 Immunization Today Z23 - Encounter for immunization Medications: Discontinued prednisone Discontinued Reason: Doctor's Order 60 mg (3 x 20 mg) PO DAILY 6 days 18 tabs 2RF
== END 2024-04-23 13:06 | disposition home or self-care (01) ==
PROVIDERS: PCP Nurse Practitioner Family; Visit Provider Nurse Practitioner Family
DX: Z23 Encounter for immunization (principal); I10 Essential (primary) hypertension

== ENCOUNTER → 2024-04-23 11:18 | Outpatient (BNVA) | payer MEDICARE, OTHER, SELFPAY | PROVIDERS: PCP Nurse Practitioner Family; Visit Provider Nurse Practitioner Family | DX: I10 Essential (primary) hypertension (principal); Z23 Encounter for immunization | CPT/HCPCS: 90471; 90677; 96127; 99212 ==

== ENCOUNTER 2024-05-29 11:01 | Outpatient (REF) | payer MEDICARE, OTHER, SELFPAY ==
[2024-05-29 13:53] LABS: Appearance Urine Clear; Color Urine Yellow; Glucose Urine UA Negative (Negative); Leukocyte Esterase Urine Negative (Negative); Nitrite Urine Negative (Negative); PH 5.5 (5.0-9.0); UMIC TRIGGER UACC YES; Urine Blood Negative (Negative); Urine Ketones Trace mg/dL (Negative); Urine Protein 300 (3+) mg/dL (Neg-Trace)
[2024-05-29 13:55] LABS: MANUAL DIFF FLAG NO
[2024-05-29 13:58] LABS: Basophils Absolute Auto 0.1 X10*3/uL (0.0-0.2); Basophils Percent Auto 1.5 % (0-2); Eosinophils Absolute Auto 0.4 X10*3/uL (0.0-0.4); Eosinophils Percent Auto 6.7 % (0-4); Hematocrit 40.1 % (42.0-52.0); Hemoglobin 13.3 g/dl (14.0-18.0); Imm Gran Abs Auto 0.02 X10*3/uL (0.00-0.03); Imm Gran Pct Auto 0.3 % (0.0-0.4); Lymphocytes Absolute Auto 1.4 X10*3/uL (1.2-4.9); Lymphocytes Percent Auto 24.7 % (20-40); Mean Corpuscular HGB Conc 33.2 g/dl (31.0-36.0); Mean Corpuscular Hemoglobin 28.8 pg (27.0-33.0); Mean Corpuscular Volume 86.8 fL (80.0-98.0); Mean Platelet Volume 10.1 fL (9.4-12.4); Monocytes Absolute Auto 0.4 X10*3/uL (0.1-1.2); Monocytes Percent Auto 7.5 % (2-11); Neutrophils Absolute Auto 3.5 x10*3/uL (2.0-8.3); Neutrophils Percent Auto 59.3 % (45-73); Platelet Count 214 X10*3/uL (160-400); Red Blood Count 4.62 X10*6/uL (4.60-5.80); Red Cell Distribution Width 13.5 % (11.0-16.0); White Blood Count 5.8 X10*3/uL (4.8-10.8)
[2024-05-29 14:03] LABS: Bacteria Urine None Seen (None Seen); RBC Urine 0-2 /HPF (0-2); Squamous Epithelial Cell Urine 0-2 /HPF (0-2); WBC Urine 0-5 /HPF (0-5)
[2024-05-29 14:18] LABS: Prostate Specific Antigen Scr 0.54 ng/mL (<0.05-4.0)
[2024-05-29 15:12] LABS: Alanine Aminotransferase 22 U/L (0-40); Albumin Level 3.6 g/dL (3.5-5.0); Alkaline Phosphatase 50 U/L (39-117); Anion Gap 8 (12-20); Aspartate Amino Transferase 23 U/L (5-37); Bilirubin Total 0.6 mg/dL (0.0-1.0); Blood Urea Nitrogen 19 mg/dL (9-16); Calcium 9.1 mg/dL (8.4-10.2); Carbon Dioxide 26 mmol/L (22-29); Chloride 112 mmol/L (96-108); Cholesterol 114 mg/dL (<200); Estimated Glomerular Filt Rate 60; Glucose Fasting 100 mg/dL (60-99); HDL Cholesterol 36 mg/dL (>40); LDL Cholesterol Calculated 66 mg/dL (<100); Potassium 4.5 mmol/L (3.3-5.1); Sodium 141 mmol/L (135-145); TSH reflex Free T4 1.37 uIU/mL (0.32-4.0); Total Protein 6.9 g/dL (6.5-8.0); Triglycerides 64 mg/dL (<150); Uric Acid 7.6 mg/dL (3.4-7.0)
== END 2024-05-29 11:02 | disposition home or self-care (01) ==
LOC: HO.HMGCLDS 11:01
PROVIDERS: PCP Nurse Practitioner Family; Referring Provider Radiology Diagnostic Ultrasound; Visit Provider Nurse Practitioner Family
DX: I10 Essential (primary) hypertension (principal); Z12.5 Encounter for screening for malignant neoplasm of prostate
CPT/HCPCS: 36415; 80053; 80061; 81001; 84153; 84443; 84550; 85025

== ENCOUNTER 2024-06-23 12:49 | Outpatient (AMB) | payer MEDICARE, OTHER, SELFPAY ==
[2024-06-23 12:59] VITALS: BP 126/72; PULSE 53; RESP 18; TEMP 36.8; O2SAT 97; BMI 33.2
--- NOTE | 2024-06-23 12:59 | A.OFFPC_ITS ---
Vital Signs 06/23/24 12:59 Height 5 ft 11 in Weight 238 lb BMI 33.2 BP 126/72 Blood Pressure Location Rt brachial Position Sitting Respiration 18 Pulse 53 Pulse Source Pulse Oximeter Temp 98.3 F Temp Source Oral Pulse Oximetry (%) 97 Oxygen Delivery Method Room Air Intake Visit Reasons: 6 Mo Follow Up Intake Note: Pt is here today for a 6 months follow up visit on labs. Allergies Sulfa (Sulfonamide Antibiotics) [SULFA(SULFONAMIDE ANTIBIOTICS)] Allergy (Unknown, Verified 06/23/24 13:03) CHILDHOOD- ? RXN, as a child Medication List - Last Reconciled 06/23/24 by Tyler Adams, DIRECTOR IMMUNOLOGY- amlodipine 5 mg PO DAILY aspirin (Adult Low Dose Aspirin) 81 mg PO DAILY colchicine 0.6 mg PO BID dorzolamide-timolol 22.3-6.8 mg/mL 1 drp ophthalmic (eye) BID latanoprost 0.005% 1 drp ophthalmic (eye) DAILY lisinopril 40 mg PO DAILY metoprolol succinate ER 50 mg PO DAILY prednisone 60 mg (3 x 20 mg) PO DAILY 5 days rosuvastatin (Crestor) 40 mg PO DAILY Tobacco use date assessed: 06/23/24 Fall risk assessment: 1 Fall in past year Last assessed Fall Risk: 06/23/24 Dental Screening Dental Screen Date: 06/23/24 Did you have a dental visit in the last 12 months?: Yes Did you have a dental problem in the last 6 months where you did not have access to dental care?: No Was dental information given to patient?: Patient has dentist HPI 6 Mo Follow Up HPI Details Chief Complaint The patient presents for management and discussion of hypertension. History of Present Illness The patient is a 69-year-old male presenting with hypertension management. He is stable both in-office and at home and adheres to his prescribed antihypertensive medication regimen. The patient has an established care routine that includes regular visits to both a filament tester and clinical quality analyst, suggesting concurrent cardiovascular and renal concerns. During discussions, the patient's obesity was noted as a contributing factor to his health. While he is aware of his weight status described variably as obese or morbidly obese, the patient expressed understanding and willingness to address it through increased physical activity once seasonal weather improves. Previous interventions for hypertension remain ongoing and successful, with no reported active symptoms such as swelling. The patient denies any complications or adverse symptoms currently related to his hypertension or allied comorbidities. Social History - Engages in regular follow-ups with car diologist and clinical quality analyst. - Intends to increase physical activity, specifically walking, as weather permits. - Recognizes importance of diet in manag ing health, implying adherence to dietary modifications when feasible. Health Maintenance - Reinforcement of dietary importance to manage obesity and hypertension. - Encouragement of increased physical ac tivity with changing seasons. Review of Systems - Cardiovascular: Reports no active swel ling. Physical Exam General: Cooperative, healthy appearing, comfortable, no acute distress and well developed, morbidly obese Orientation: Patient oriented x3 Limitations: No limitations Head: Normal to inspection Ears: Hearing grossly normal bilaterally Nose: Normal external nose present Face and sinus: Normal facial exam Eyes: Appearance normal, both eyes and all related structures Neck: Normal visual inspection and Yes full ROM Respiratory: Normal respiratory effort and able to speak in complete sentences. Clear to auscultation bilaterally Cardiovascular: Regular rate and rhythm. Normal S1 and S2 GI: Normal to inspection. Soft to palpation and nontender Skin: No rashes or lesions noted Neuro: Patient oriented x3 Extremities: Normal to inspection, no edema Results Plan - Continue current antihypertensive kyler men. - Maintain regular follow-ups with cardi ologist and clinical quality analyst for cardiovascular and renal health management. - Encourage weight management through di et and planned increase in physical activity. - Monitor blood pressure at home and rep ort any concerning changes. Discussion Notes During the visit, I emphasized the importance of continuing current antihypertensive therapy and maintaining regular specialist appointments for cardiovascular and renal health. I discussed the relationship between obesity and hypertension, highlighting the benefits of weight loss through improved diet and increased physical activity. The patient acknowledged understanding of these recommendations and expressed intent to implement these changes with favorable weather conditions. No new medications or diagnostics were needed at this time, given stable control of hypertension and absence of new symptoms. Plans to reassess these matters in subsequent visits were confirmed, ensuring ongoing management remains adaptable to the patient's needs and circumstances. Patient Instructions - Continue taking prescribed hypertensio n medications regularly. - Routine follow-ups with filament tester a nd clinical quality analyst should be maintained. - Engage in physical activities like wal ana when possible to manage weight. - Follow a healthy diet as discussed, em phasizing its role in overall wellness. - Monitor blood pressure at home and con tact me if there are any significant changes or concerns. - Return to the clinic for follow-up mackenzie ointments as scheduled. COUNTS INCLUDE 234 BEDS AT THE [facility] Medical History Stage 3 chronic kidney disease Elevated serum creatinine Gout Multiple lipomas PVD (peripheral vascular disease) Osteoarthritis Dyslipidemia Myocardial infarct HTN (hypertension) Paroxysmal A-fib Coronary artery disease Surgical History Stented coronary artery H/O heart artery stent No pertinent past surgical history Family History Father Substance use disorder Mother No problems noted. Brother No problems noted. Sister No problems noted. Son No problems noted. Daughter No problems noted. Social History Housing: House Alcohol intake: current Alcohol intake frequency: a few times a week Patient Tobacco Use Status: Former Tobacco user e-Cigarette/Vaping Use: Never Used Second Hand Smoke Exposure: No service: No Current occupational status: retired Cognitive needs: No Hearing needs: No Vision needs: Yes Questionnaire PHQ-9 Over the last 2 weeks, how often have you been bothered by any of the following problems? 1. Little interest or pleasure in doing things: not at all 2. Feeling down, depressed, or hopeless: not at all 3. Trouble falling or staying asleep, or sleeping too much: not at all 4. Feeling tired or having little energy: not at all 5. Poor appetite or overeating: not at all 6. Feeling bad about yourself - or that you are a failure or have let yourself or your family down: not at all 7. Trouble concentrating on things, such as reading the newspaper or watching television: not at all 8. Moving or speaking so slowly that other people could have noticed. Or the opposite - being so fidgety or restless that you have been moving around a lot more than usual: not at all 9. Thoughts that you would be better off or of hurting yourself in some way: not at all Total score: 0 Depression Screening Interpretation: Negative Depression Screening Done: Yes 98874 - PHQ-9 Billing: Yes Source: Developed by Drs. Tom Paris, Tata Miller, Kash Nation and colleagues, with an educational christy from [employer]). Thrive Questionnaire Date Thrive assessed: 06/23/24 I am a: Patient What is your living situation today?: I have a steady place to live Within the past 12 months, did the food you bought not last and you didn't have the money to get more?: Never true Within the past 12 months, did you worry whether your food would run out before you got money to buy more?: Never true Do you have trouble paying for medicines?: No Do you have trouble getting transportation to medical appointments?: No Do you have trouble paying your heating and electricity bill?: No Do you have trouble taking care of your child, family member or friend?: No Do you have trouble with day-to-day activities such as bathing, preparing meals, shopping, managing finances, etc.?: No Are you currently unemployed and looking for a job?: No Are you interested in more education?: No Please select the resources that you would like help with: None Currently or been in a relationship where the following occur: No concerns reported THRIVE Score: 0 AUDIT C Alcohol Use Questionnaire (AUDIT-C) 1. How often do you have a drink containing alcohol?: 2-4 times a month 2. How many drinks containing alcohol do you have on a typical day when you are drinking?: 1 or 2 3. How often do you have six or more drinks on one occasion?: Never Total Score: 2 LEON-7 AMB Questionnaire LEON-7 Date LEON - 7 assessed: 06/23/24 Feeling nervous, anxious, or on edge: 0 = Not at all Not being able to stop or control worryin = Not at all Worrying too much about different things: 0 = Not at all Trouble relaxin = Not at all Being so restless that it is hard to sit still: 0 = Not at all Becoming easily annoyed or irritable: 0 = Not at all Feeling afraid as if something awful might happen: 0 = Not at all Total LEON-7 score (0-4 normal; 5-9 mild; 10-14 moderate; 15-21 severe): 0 Source: Developed by Drs. Tom Paris, Tata Miller, Kash Nation and colleagues, with an educational christy from [employer]). LEON-7 Assessment Billing LEON-7 Assessment Tool: LEON-7 Assessment 96414 Physical exam (Primary Care) Vital Signs: Last Vital Signs Temp 98.3 F 06/23/24 12:59 Pulse 53 06/23/24 12:59 Resp 18 06/23/24 12:59 BP 126/72 06/23/24 12:59 Pulse Ox 97 06/23/24 12:59 Oxygen Delivery Method Room Air 06/23/24 12:59 BMI result Body Mass Index 33.2 Tobacco/Smoking Status: Tobacco use Status Tobacco use date assessed 06/23/24 06/23/24 13:00 Patient Tobacco Use Status Former Tobacco user 06/23/24 13:00 e-Cigarette/Vaping Use Never Used 06/23/24 12:59 PHQ-9: PHQ-9 Score PHQ-9: Total score 0 06/23/24 13:00 Depression Screening Interpretation: Negative Thrive Assessment: Date of Thrive Assessment Date Thrive assessed 06/23/24 06/23/24 13:00 Currently or been in a relationship where the following occur: No concerns reported Coding Level of Care Code Est Pt Level 3 (16664) Diagnoses HTN (hypertension) I10 Additional Codes LEON-7 Assessment Billing - LEON-7 Assessment Tool: LEON-7 Assessment 04980 ([id number]) PHQ-9 - 04066 - PHQ-9 Billing: Yes ([id number]) Assessment & Plan Assessment & Plan (1) HTN (hypertension): Code(s): I10 - Essential (primary) hypertension Category: Medical Plan . Orders: Orders TSH reflex Free T4 Today I10 - Essential (primary) hypertension Complete Blood Count Auto Diff Today I10 - Essential (primary) hypertension Comprehensive [place]. Panel Fast Today I10 - Essential (primary) hypertension UA CC w/rflx Micro + Cult Today I10 - Essential (primary) hypertension Lipid Panel Today I10 - Essential (primary) hypertension Uric Acid Today M10.9 - Gout, unspecified Medications: Discontinued prednisone Discontinued Reason: Doctor's Order 60 mg (3 x 20 mg) PO DAILY 5 days 15 tabs 3RF
--- OUTSIDE RECORDS SUMMARY | 2024-06-23 13:41 | XMS_ITS | Encounter Summary ---
Author Organization [facility] Address [address] [place] [address] Phone Care Team Providers Care Weight Engineer Name Role Phone Tyler Adams COAL SAMPLER Primary Care Provider [phone] Encounter Details Date Type Department Care Team (Late st Contact Info) Description 11/20/2022 Documentation Only [facility] [address] [place] [phone] Tyler Adams NP [facility] [place], [place] Social History Tobacco Use Types Packs/Day Years Used Date Smoking Tobacco: Never Assessed Sex and Gender Information Value Date Recorded Sex Assigned at Not on file Legal Sex Male 10:40 AM EDT Gender Identity Not on file Sexual Orientation Not on file documented as of this encounter Plan of Treatment Upcoming Encounters Date Type Department Care Team (Late st Contact Info) Description 01/21/2025 1:30 PM EDT Office Visit [facility] [address] [place] [phone] Jaspreet Nielsen MD [address] [place] [address] [place] [phone] documented as of this encounter Visit Diagnoses Not on filedocumented in this encounter Care Teams Weight Engineer Relationship Specialty Start Date End Date Tyler Adams NP [facility] [place], [place] PCP - General Nurse Practitioner 11/08/22 documented as of this encounter
--- OUTSIDE RECORDS SUMMARY | 2024-06-23 13:42 | XMS_ITS | Encounter Summary ---
Author Organization [facility] Address [address] [place] [address] Phone Care Team Providers Care Cabin Crew Name Role Phone Tyler Adams ASSISTANT PURCHASING MANAGER Primary Care Provider Encounter Details Date Type Department Care Team (Late st Contact Info) Description 01/15/2024 Documentation Only [facility] [address] [place] [address] Shanel Gross [address] [place] [address] Social History Tobacco Use Types Packs/Day Years [...] Visit [facility] [address] [place] [address] Jaspreet Nielsen MD [address] [place] [address] [place] [phone] documented as of this encounter Visit Diagnoses Not on filedocumented in this encounter Care Teams Cabin Crew Relationship Specialty Start Date End Date Tyler Adams NP [address] [place] [address] PCP - General Nurse Practitioner 11/08/22 documented as of this encounter
--- OUTSIDE RECORDS SUMMARY | 2024-06-23 13:42 | XMS_ITS ---
Author Organization [facility] Address [address] [place] [phone] Care Team Providers Care Cat Breeder Name Role Phone DUSTY DAILY Primary Care Provider Lewis Newman Jr Unavailable REASON FOR VISIT COLON SCREENING Encounters Encounter Location Date Provider Diagnosis [facility] [address] [place] [phone] 01/16/2023 Lewis Pozo Jr PLAN OF TREATMENT No Information
--- OUTSIDE RECORDS SUMMARY | 2024-06-23 13:42 | XMS_ITS | Encounter Summary ---
Author Organization [facility] Address [address] [place] [address] Phone Care Team Providers Care Fruit Press Operator Name Role Phone Tyler Adams PROPELLER MECHANIC Primary Care Provider [phone] Encounter Details Date Type Department Care Team (Late st Contact Info) Description 01/15/2024 Documentation Only [facility] [address] [place] [address] Shanel Gross [address] [place] [address] Social History Tobacco Use Types [...] Visit [facility] [address] [place] [place] [address] Jaspreet Nielsen MD [address] [place] [address] [place] [phone] documented as of this encounter Visit Diagnoses Not on filedocumented in this encounter Care Teams Fruit Press Operator Relationship Specialty Start Date End Date Tyler Adams NP [address] [place] [address] PCP - General Nurse Practitioner 11/08/22 documented as of this encounter
--- OUTSIDE RECORDS SUMMARY | 2024-06-23 13:42 | XMS_ITS ---
Author Organization [facility] Address [address] [place] [phone] Care Team Providers Care Therapist'S Assistant Name Role Phone DUSTY DAILY Primary Care Provider Unavailcelestine e Lewis Pozo Jr Unavailable [phone] REASON FOR VISIT rectal bleeding Encounters Encounter Location Date Provider Diagnosis [facility] Outpatient [address] [place] [phone] 12/28/2022 Lewis Pozo Jr Colon cancer screening Z12.11 ASSESSMENTS Encounter Date Diagnosis Assessment Notes Treatment Notes Treatment Clinical Notes 12/28/2022 Colon cancer screening (ICD-10 - Z12.11) PLAN OF TREATMENT No Information
--- OUTSIDE RECORDS SUMMARY | 2024-06-23 13:42 | XMS_ITS | Encounter Summary ---
Author Organization [facility] Address [address] [place] [address] Phone Care Team Providers Care Quiller Machine Fixer Name Role Phone Tyler Adams MARKETING SERVICES MANAGER Primary Care Provider [phone] Encounter Details Date Type Department Care Team (Late st Contact Info) Description 01/15/2024 Documentation Only [facility] [address] [place] [address] Shanel Gross [address] [place] [address] Social History Tobacco Use Types [...] [facility] [address] [place] [place] [address] Jaspreet Nielsen MD [address] [place] [address] [place] [phone] documented as of this encounter Visit Diagnoses Not on filedocumented in this encounter Care Teams Quiller Machine Fixer Relationship Specialty Start Date End Date Tyler Adams NP [address] [place] [address] PCP - General Nurse Practitioner 11/08/22 documented as of this encounter
--- OUTSIDE RECORDS SUMMARY | 2024-06-23 13:42 | XMS_ITS | Encounter Summary ---
Author Organization [facility] Address [address] [address] Phone Care Team Providers Care Nuclear Fuel Enrichment Technician Name Role Phone Tyler Adams MATHEMATICAL SCIENTIST Primary Care Provider [phone] Encounter Details Date Type Department Care Team (Late st Contact Info) Description 11/13/2022 Documentation Only [facility] [address] [place] [phone] Tyler Adams NP [facility] [place], [place] Social History Tobacco Use Types Packs/Day [...] Visit [facility] [address] [place] [phone] Jaspreet Nielsen MD [address] [place] [address] [place] [phone] documented as of this encounter Visit Diagnoses Not on filedocumented in this encounter Care Teams Nuclear Fuel Enrichment Technician Relationship Specialty Start Date End Date Tyler Adams NP [facility] [place], [place] PCP - General Nurse Practitioner 11/08/22 documented as of this encounter
--- OUTSIDE RECORDS SUMMARY | 2024-06-23 13:42 | XMS_ITS | Encounter Summary ---
Author Organization [facility] Address [address] [place] [address] Phone Care Team Providers Care Ceramic Tile Setter Name Role Phone Tyler Adams JACK STRIP ASSEMBLER Primary Care Provider [phone] Encounter Details Date Type Department Care Team (Late st Contact Info) Description 01/15/2024 Documentation Only [facility] [address] [place] [address] Shanel Gross [address] [place] [address] Social History Tobacco Use Types [...] Visit [facility] [address] [place] [address] Jaspreet Nielsen MD [address] [place] [address] [place] [phone] documented as of this encounter Visit Diagnoses Not on filedocumented in this encounter Care Teams Ceramic Tile Setter Relationship Specialty Start Date End Date Tyler Adams NP [address] [place] [address] PCP - General Nurse Practitioner 11/08/22 documented as of this encounter
--- OUTSIDE RECORDS SUMMARY | 2024-06-23 13:42 | XMS_ITS | Patient Health Record ---
Author Organization [facility] Address [address] [place] [phone] Care Team Providers Care Medical Concierge Name Role Phone DUSTY DAILY Primary Care Provider Lewis Newman Jr Unavailable ALLERGIES Allergen (clinical drug ingredient) Drug/Non Drug Allergy documented on EMR Reaction Allergy Type Onset Date Status Sulfa Unknown Drug Allergy Active REASON FOR REFERRAL No Information MEDICATIONS Medication SIG (Take, Route, Frequency, Duration) Notes Start Date End Date Status Azopt 1 % 1 drop into affected eye Ophthalmic twice a day Active Timolol Maleate 0.5 % (DAILY) 1 drop into affected eye Ophthalmic Once a day Active Atorvastatin Calcium 80 MG 1 tablet Oral ly Once a day Active Aspir-81 81 MG 1 tablet Orally Once a day Active Travatan Active Anusol-HC 25 MG 1 suppository Rectal Once a day for 14 day(s) 11/12/2022 Active amLODIPine Besylate 10 MG 1 tablet Orall y Once a day for 30 day(s) Active Lisinopril 5 MG 1 tablet Orally Once a day Active Metoprolol Succinate ER 25 MG 1 tablet Orally Once a day Active IMMUNIZATIONS Vaccine Route Administration Date Status Comme nts Influenza Unknown 02/20/2022 Administered SOCIAL HISTORY Tobacco Use: Social History Observation Description Date Details (start date - stop date) Former Smoker NA - NA Sex Assigned At : Social History Observation Description Sex Assigned At Unknown Tobacco Use/Smoking Question Answer Notes Patient is a former smoker How long has it been since you last smoked? > 10 years Alcohol Screen Question Answer Notes Did you have a drink contain ing alcohol in the past year? Yes How often did you have a dri nk containing alcohol in the past year? 2 to 4 times a month (2 points) How often did you have 6 or more drinks on one occasion in the past year? Never (0 point) Points 2 Interpretation Negative PROBLEMS Problem Type ICD Code Onset Dates Problem Status W/U Status Risk SNOMED Code Notes Problem Rectal bleeding (K62.5) Active confirmed 20496102 Problem Colon cancer screening (Z12.11) Active confirmed 844049262 Problem Current use of aspirin (Z79.82) Active confirmed 706817348 PLAN OF TREATMENT Future Test Test Name Order Date COLONOSCOPY 07/03/2017 COLONOSCOPY 11/12/2022 Insurance Providers Payer Name Payer Address Payer Phone Subscriber Number Group Number Insured Name Patient Relationship to Insured Coverage Start Date Coverage End Date MEDICARE OF [place] [address] [place] [address] [id number] DUSTY NESBITT Self - patient is the insured [facility] [address] [place] [address] [id number] DUSTY NESBITT Self - patient is the insured MEDICAL (GENERAL) HISTORY Medical History History ICD Code coronary artery disease with history of CA and stent placement 2006, second stent 2007 hypertension hyperlipidemia Colon polyps, colonoscopy , five-year followup due to prior history of adenomas. Surgical History Surgery Date(Month/Year) stent placement 2006, 2007
--- OUTSIDE RECORDS SUMMARY | 2024-06-23 13:42 | XMS_ITS | Clinical Summary ---
Author Organization [facility] [place], Address [address] [place] [address] [place] [address] Phone Care Team Providers Care Branch Rental Manager Name Role Phone Tyler Adams NP Primary Care Provider [phone] Allergies Active Allergy Reactions Criticality Noted Date Comments Sulfa Antibiotics Other (see comments) 04/16/20 11 Converted from Generic Allergy: Sulfa ?? UNKNOWN RXN ?? Converted from Drug Class Allergy: Sulfonamides (Systemic) Other reaction(s): unknown Medications amLODIPine (NORVASC) 10 MG tablet 11/09/2022 Active aspirin (ST RACQUEL) 81 MG EC tablet Take 1 tablet by mouth in the morning. Active lisinopril 40 MG tablet Take 40 mg by mouth in the morning. 10/24/2020 Active metoprolol succinate XL (TOPROL XL) 50 MG 24 hr tablet 11/09/2022 Act tony predniSONE (DELTASONE) 20 MG tablet TAKE 3 TABLETS BY MOUTH DAILY FOR 5 DAYS 09/03/2022 Active rosuvastatin (CRESTOR) 40 MG tablet 11/09/2022 Active Active Problems Problem Noted Date Diagnosed Date Stage 3a chronic kidney disease 01/16/2024 Serum creatinine above reference range Peripheral vascular disease Gout Essential (primary) hypertension Dyslipidemia Immunizations Name Administration Dates Next Due Influenza Split High Dose Preservative Free IM 1 Influenza, MDCK, Quadrivalent, with preservative 03/02/2019 Influenza, Quadrivalent, With Preservative 07/09 Influenza, Unspecified 02/20/2022 Pfizer SARS-COV-2 06/30/2020,06/09/2020 Shingrix 11/11/2018 Tdap 12/04/2014 Family History Medical History Relation Comments Other Father substance use di sorder Relation Status Comments Father Mother Social History Tobacco Use Types Packs/Day Years Used Date Smoking Tobacco: Former Cigarettes Smokeless Tobacco: Never Sex and Gender Information Value Date Recorded Sex Assigned at Not on file Legal Sex Male 10:40 AM EDT Gender Identity Not on file Sexual Orientation Not on file Last Filed Vital Signs Vital Sign Reading Time Taken Comments Blood Pressure 139/82 01/23/2024 3:26 PM EDT Pulse 50 01/23/2024 3:26 PM EDT Temperature - - Respiratory Rate - - Oxygen Saturation - - Inhaled Oxygen Concentration - - Weight - - Height - - Body Mass Index - - Plan of Treatment Upcoming Encounters Date Type Department Care Team (Late st Contact Info) Description 01/21/2025 1:30 PM EDT Office Visit [facility] [place], [address] [place] [address] Jaspreet Nielsen MD [address] [place] [address] Health Maintenance Due Date Last Done Comments Pneumococcal Vaccine: 65+ Years (1 of 2 - PCV) 1961 Colorectal Cancer Screening: Annual FOBT 2002 Colorectal Cancer Screening: Colonoscopy 2002 Colorectal Cancer Screening: Sigmoidoscopy 2002 Influenza Vaccine (#1) 2024 2, 03/02/2019, 02/16/2018, Additional history exists Hepatitis B Vaccine Aged Out No longe r eligible based on patient's age to complete this topic Insurance MEDICARE [facility] Care Teams Branch Rental Manager Relationship Specialty Start Date End Date Tyler Adams NP [employer] [place] [address] PCP - General Nurse Practitioner 11/08/22
== END 2024-06-23 13:51 | disposition home or self-care (01) ==
PROVIDERS: PCP Nurse Practitioner Family; Visit Provider Nurse Practitioner Family
DX: I10 Essential (primary) hypertension (principal)

== ENCOUNTER → 2024-06-23 12:49 | Outpatient (BNVA) | payer MEDICARE, OTHER, SELFPAY | PROVIDERS: PCP Nurse Practitioner Family; Visit Provider Nurse Practitioner Family | DX: I10 Essential (primary) hypertension (principal) | CPT/HCPCS: 96127; 99212 ==

== ENCOUNTER 2024-07-13 13:00 | Emergency (ER) | payer MEDICARE, OTHER, SELFPAY ==
[2024-07-13 13:20] VITALS: PULSE 54; RESP 18; TEMP 36.4; O2SAT 95; BMI 32.9
--- NOTE | 2024-07-13 13:21 | ECG_ITS ---
Test Reason : VOMITING/WEAK Blood Pressure : */* mmHG Vent. Rate : 89 BPM Atrial Rate : 89 BPM P-R Int : 178 ms QRS Dur : 106 ms QT Int : 372 ms P-R-T Axes : 14 121 41 degrees QTcB Int : 452 ms Normal sinus rhythm Possible Left atrial enlargement Incomplete right bundle branch block Left posterior fascicular block Possible Anterior infarct , age undetermined - could be related to body habitus. Abnormal ECG When compared with ECG of 17-Jan-2018 09:08, changes noted Referred By: Velvet Hinds Electronically Signed By: MURALI RENEE
[2024-07-13 13:43] VITALS: BP 135/71; PULSE 90; RESP 18; TEMP 36.6; O2SAT 95
--- NOTE | 2024-07-13 13:43 | ED.GENADULT ---
HPI - General Adult General Chief complaint: Nausea/Vomiting/Diarrhea Stated complaint: vomiting diarrhea Time Seen by Provider: 07/13/24 13:28 Source: patient, family, RN notes reviewed and old records reviewed Mode of arrival: ambulatory Limitations: no limitations History of Present Illness ED Provider: Deanna HPI narrative: Patient is a 69-year-old male with history of CKD 3, PVD, HTN, paroxysmal afib, CAD, prior [place], gout presenting to the emergency department with complaint of nausea, vomiting and diarrhea since last night. Denies hematemesis, hematochezia, melena. Denies fever. Denies abdominal pain, complaints of bilateral rib pain from vomiting. No known sick contacts. MD complaint: vomiting and diarrhea Onset (ago): hour(s) Treatments prior to arrival: none Related Data Home Medications ?Medication ?Instructions ?Recorded ?Confirmed aspirin 81 mg tablet,delayed 81 mg PO DAILY 03/09/20 06/23/24 release (Adult Low Dose Aspirin) dorzolamide 22.3 mg-timolol 6.8 1 drp ophthalmic (eye) BID 03/09/20 06/23/24 mg/mL eye drops latanoprost 0.005 % eye drops 1 drp ophthalmic (eye) DAILY 03/09/20 06/23/24 lisinopril 40 mg tablet 40 mg PO DAILY 03/09/20 06/23/24 rosuvastatin 40 mg tablet (Crestor) 40 mg PO DAILY 03/09/20 06/23/24 amlodipine 5 mg tablet 5 mg PO DAILY 12/17/23 06/23/24 metoprolol succinate 50 mg 50 mg PO DAILY 12/17/23 06/23/24 tablet,extended release 24 hr Previous Rx's ?Medication ?Instructions ?Recorded colchicine 0.6 mg tablet 0.6 mg PO BID #40 tabs 12/14/23 ondansetron 4 mg disintegrating 4 mg PO Q8H PRN nausea and 07/13/24 tablet vomiting #10 tabs Allergies Allergy/AdvReac Type Severity Reaction Status Date / Time Sulfa (Sulfonamide Allergy Unknown CHILDHOOD- Verified 07/13/24 13:23 Antibiotics) ? RXN, as [SULFA(SULFONAMIDE a child ANTIBIOTICS)] Review of Systems Review of Systems: As per HPI Yes all other systems are reviewed and are negative Constitutional: Constitutional: Reports as per HPI PMFSH Past Medical History Medical History Stage 3 chronic kidney disease Elevated serum creatinine Gout Multiple lipomas PVD (peripheral vascular disease) Osteoarthritis Dyslipidemia Myocardial infarct HTN (hypertension) Paroxysmal A-fib Coronary artery disease Surgical History Stented coronary artery H/O heart artery stent No pertinent past surgical history Family History Family History Father Substance use disorder Mother No problems noted. Brother No problems noted. Sister No problems noted. Son No problems noted. Daughter No problems noted. Social History Social History Housing: House Alcohol intake: current Alcohol intake frequency: a few times a week Patient Tobacco Use Status: Former Tobacco user Smoked in Last 30 Days: No e-Cigarette/Vaping Use: Never Used Second Hand Smoke Exposure: No Use of substances other than those prescribed or required for medical reasons: No Advance Directives: No Advance Directives Information Provided: Yes Do you have a plan to hurt others: No Plan service: No Current occupational status: retired Cognitive needs: No Hearing needs: No Vision needs: Yes Physical Exam ED Vital Signs: Vital Signs - 24 hr 07/13/24 13:20 07/13/24 13:43 Temperature 97.6 F 97.8 F Pulse Rate 54 90 Respiratory Rate 18 18 Blood Pressure 135/71 Pulse Oximetry 95 95 Oxygen Delivery Method Room Air BMI result Body Mass Index 32.9 Vital signs have been reviewed and appear to be correct. Blood pressure normal. Heart rate normal. Respiratory rate normal. Temperature normal. Oxygen saturation normal. Const General: cooperative, healthy appearing and no acute distress Orientation/consciousness: oriented to person, oriented to place, oriented to time and patient oriented x3 Limitations: no limitations HENMT Head: Yes normocephalic and Yes atraumatic Ears: external ears normal General nose exam: Normal external nose present Face and sinus: Yes face symmetric Mouth: oropharynx normal and moist mucous membranes Throat: Yes uvula midline Eyes Pupils: Equal, round and reactive pupils present Neck Neck: Yes normal visual inspection and Yes supple Resp Effort & Inspection: normal respiratory effort and able to speak in complete sentences Auscultation: clear to auscultation bilaterally Cardio Rate: regular rate Rhythm: regular rhythm Heart sounds: S1 normal heart sound present and S2 normal heart sound present GI Palpation (GI): Soft to palpation and nontender Auscultation: normoactive bowel sounds General: Yes no CVA tenderness Back/Spine/Pelvis Back: no CVA tenderness Skin General skin exam: elasticity normal and turgor normal Neuro General: oriented to person, oriented to place, oriented to time, patient oriented x3, moves all extremities, no focal motor deficits and CN's II-XI intact bilaterally Cranial nerves: Yes Equal, round and reactive pupils present Cognition (Neuro): normal cognition Extrem General: Yes full ROM, Yes no pedal edema and Yes no calf tenderness Psych Mental Status: mental status grossly normal Affect: normal affect Thought process: Normal thought process present Medications Administered Discontinued Medications Generic Name Dose Route Start Last Admin Trade Name Freq PRN Reason Stop Dose Admin Sodium Chloride 1,000 mls @ 999 mls/hr 07/13/24 14:00 07/13/24 14:57 Ns IV 07/13/24 15:00 Infused .Q1H1M JU Infusion Sodium Chloride 1,000 mls @ 999 mls/hr 07/13/24 15:00 07/13/24 16:00 Ns IV 07/13/24 16:00 Infused .Q1H1M JU Infusion Ondansetron HCl 4 mg 07/13/24 13:55 07/13/24 14:03 Ondansetron Hcl 4 Mg/2 Ml Vial IVPUSH 07/13/24 13:56 4 mg ONCE ONE Administration Sodium Zirconium Cyclosilicate 10 gm 07/13/24 14:29 07/13/24 14:52 Sodium Zirconium Cyclosilicate 10 Gm Powd.Pack PO 07/13/24 14:30 10 gm ONCE ONE Administration Medical Decision Making Medical Decision Making MDM Narrative: Patient is a 69-year-old male with history of CKD 3, PVD, HTN, paroxysmal afib, CAD, prior [place], gout presenting to the emergency department with complaint of nausea, vomiting and diarrhea since last night. On exam patient is awake, A+Ox3, VS WNL, afebrile, normal neurological exam without focal deficits, physical exam findings as above. Given reported symptoms and physical exam findings, initial differential includes but is not limited to viral illness, electrolyte abnormality, gastroenteritis. EKG shows NSR with incomplete RBBB, last prior for comparison from 2018. Labs notable for mild leukocytosis, slight hyperkalemia, Lokelma ordered, elevated BUN/Cr, IV fluids ordered, troponin negative. Viral serology negative. Hyperkalemia and creatinine improved with IV fluids and lokelma, patient able to tolerate PO fluids. Feel he is stable for discharge home at this time. Will send prescription for Zofran. Advised patient to drink fluids with electrolytes. Follow up with PCP as needed. Return precautions discussed at bedside. Patient verbalized understanding and agreement with plan. Differential Diagnosis Differential Diagnoses: The differential diagnosis associated with the presentation includes as per [facility] Admission/Observation Consideration of admission/observation: Escalation of care including admission/observation considered Patient would have been admitted to the hospital had their work up had any findings where hospital admission was appropriate and their clinical presentation warranted hospital admission. Lab Data [facility] Lab Attestation statement: I reviewed the patient's lab results. as per [facility] 07/13/24 13:51 07/13/24 15:56 Labs: Lab Results 07/13/24 07/13/24 07/13/24 Range/Units 13:51 14:46 15:56 WBC 11.7 H (4.8-10.8) X10*3/uL RBC 5.73 D (4.60-5.80) X10*6/uL Hgb 16.7 D (14.0-18.0) g/dl Hct 48.4 D (42.0-52.0) % MCV 84.5 (80.0-98.0) fL MCH 29.1 (27.0-33.0) pg MCHC 34.5 (31.0-36.0) g/dl RDW 13.5 (11.0-16.0) % Plt Count 185 (160-400) X10*3/uL MPV 9.7 (9.4-12.4) fL Immature Gran % (Auto) 0.3 (0.0-0.4) % Neut % (Auto) 95.2 H (45-73) % Lymph % (Auto) 1.0 L (20-40) % [place] % (Auto) 2.9 (2-11) % Eos % (Auto) 0.3 (0-4) % Baso % (Auto) 0.3 (0-2) % Lymph # (Auto) 0.1 L (1.2-4.9) X10*3/uL [place] # (Auto) 0.3 (0.1-1.2) X10*3/uL Eos # (Auto) 0.0 (0.0-0.4) X10*3/uL Baso # (Auto) 0.0 (0.0-0.2) X10*3/uL Abs Immat Gran (auto) 0.04 H (0.00-0.03) X10*3/uL Absolute Neuts (auto) 11.1 H (2.0-8.3) x10*3/uL Absolute Nucleated RBC 0.000 (0.0-0.012) X10*3/uL Nucleated RBC % (auto) 0.0 (0.0-0.2) /100WBC Smear Tech's Comments VERIFIED Sodium 140 144 (135-145) mmol/L Potassium 5.3 H 4.6 (3.3-5.1) mmol/L Chloride 112 H 118 H (96-108) mmol/L Carbon Dioxide 20 L 19 L (22-29) mmol/L Anion Gap 13 12 (12-20) BUN 33 H 30 H (9-16) mg/dL Creatinine 1.67 H 1.32 (0.5-1.4) mg/dL Estim Creat Clear Calc 50.4 63.8 Estimated GFR 41 53 Random Glucose 159 H 115 (60-115) mg/dL Calcium 9.4 8.7 D (8.4-10.2) mg/dL Magnesium 1.7 (1.6-2.6) mg/dL Total Bilirubin 0.9 (0.0-1.0) mg/dL AST 27 (5-37) U/L ALT 25 (0-40) U/L Alkaline Phosphatase 53 (39-117) U/L Troponin I High Sens 5.9 (<3.5-35.0) ng/L Total Protein 8.1 H (6.5-8.0) g/dL Albumin 4.2 (3.5-5.0) g/dL Lipase 26 (8-78) U/L Influenza Type A (PCR) NEGATIVE (Negative) Influenza Type B (PCR) NEGATIVE (Negative) RSV RNA Qual (PCR) NEGATIVE (Negative) SARS-CoV-2 RNA (RT-PCR) NEGATIVE (Negative) Independent Interpretation I performed an independent interpretation of an: EKG (normal sinus rhythm, rate 89bpm, normal MS interval, incomplete RBBB, last prior for comparison from 2018) External Record Review External record reviewed: Inpatient record, Office record and Outpatient record Prescription Management I considered prescription management with: Other Discharge Plan Discharge Clinical Impression: Gastroenteritis, Acute hyperkalemia Patient Disposition: Home, Self-Care Instructions: Gastroenteritis (DC), Hyperkalemia (ED) Additional Instructions: You have been evaluated in the emergency department today for nausea, vomiting, and diarrhea. Your evaluation suggests that your symptoms are most likely due to a viral illness which will improve on it's own with rest and fluids. Remember to drink plenty of fluids at home. You are being prescribed ondansetron which you can use as per the prescription instructions for nausea. Your potassium was slightly elevated today likely due to vomiting and diarrhea, and improved with fluids and medication. Please follow up with your primary care provider within two days. Return to the emergency department if you experience worsening or uncontrolled pain, inability to tolerate fluids by mouth, difficulty breathing, fevers 100.4? F or greater, recurrent vomiting, or any other concerning symptoms. Prescriptions: New ondansetron 4 mg tablet,disintegrating 4 mg PO Q8H PRN (Reason: nausea and vomiting) Qty: 10 0RF No Action lisinopril 40 mg tablet 40 mg PO DAILY dorzolamide-timolol 22.3-6.8 mg/mL drops 1 drp ophthalmic (eye) BID latanoprost 0.005 % drops 1 drp ophthalmic (eye) DAILY rosuvastatin [Crestor] 40 mg tablet 40 mg PO DAILY aspirin [Adult Low Dose Aspirin] 81 mg tablet,delayed release (DR/EC) 81 mg PO DAILY amlodipine 5 mg tablet 5 mg PO DAILY metoprolol succinate 50 mg tablet extended release 24 hr 50 mg PO DAILY colchicine 0.6 mg tablet 0.6 mg PO BID Qty: 40 0RF Rx Instructions: Take 1 take 1 tablet once or twice a day until flare-up resolves Print Language: Estonian
[2024-07-13 13:57] LABS: Basophils Percent Auto 0.3 % (0-2); Eosinophils Percent Auto 0.3 % (0-4); Hematocrit 48.4 % (42.0-52.0); Hemoglobin 16.7 g/dl (14.0-18.0); Imm Gran Abs Auto 0.04 X10*3/uL (0.00-0.03); Imm Gran Pct Auto 0.3 % (0.0-0.4); Lymphocytes Absolute Auto 0.1 X10*3/uL (1.2-4.9); MANUAL DIFF FLAG SCAN; Mean Corpuscular HGB Conc 34.5 g/dl (31.0-36.0); Mean Corpuscular Hemoglobin 29.1 pg (27.0-33.0); Mean Corpuscular Volume 84.5 fL (80.0-98.0); Mean Platelet Volume 9.7 fL (9.4-12.4); Monocytes Absolute Auto 0.3 X10*3/uL (0.1-1.2); Monocytes Percent Auto 2.9 % (2-11); Neutrophils Absolute Auto 11.1 x10*3/uL (2.0-8.3); Neutrophils Percent Auto 95.2 % (45-73); Platelet Count 185 X10*3/uL (160-400); Red Blood Count 5.73 X10*6/uL (4.60-5.80); Red Cell Distribution Width 13.5 % (11.0-16.0); SCAN SMEAR FLAG 1; White Blood Count 11.7 X10*3/uL (4.8-10.8)
[2024-07-13] MEDS: 0.9 % Sodium Chloride 1,000 ML 999 ML IV ×2 (14:00→14:53)
[2024-07-13] MEDS: ondansetron HCL 4 MG/2 ML VIAL IVPUSH (14:03)
--- NOTE | 2024-07-13 14:15 | MHC.EDTECH ---
EKG is not lara because NO EKG machine available
[2024-07-13 14:18] LABS: SLIDE REVIEW VERIFIED
[2024-07-13 14:21] LABS: Alanine Aminotransferase 25 U/L (0-40); Albumin Level 4.2 g/dL (3.5-5.0); Alkaline Phosphatase 53 U/L (39-117); Anion Gap 13 (12-20); Aspartate Amino Transferase 27 U/L (5-37); Bilirubin Total 0.9 mg/dL (0.0-1.0); Blood Urea Nitrogen 33 mg/dL (9-16); Calcium 9.4 mg/dL (8.4-10.2); Carbon Dioxide 20 mmol/L (22-29); Chloride 112 mmol/L (96-108); Creatinine Clr Calc Pharmacy 50.4; Estimated Glomerular Filt Rate 41; Glucose Random 159 mg/dL (60-115); Lipase 26 U/L (8-78); Magnesium 1.7 mg/dL (1.6-2.6); Potassium 5.3 mmol/L (3.3-5.1); Sodium 140 mmol/L (135-145); Total Protein 8.1 g/dL (6.5-8.0)
[2024-07-13 14:27] LABS: Troponin-I High Sensitivity 5.9 ng/L (<3.5-35.0)
[2024-07-13] MEDS: Sodium Zirconium Cyclosilicate 10 GM POWD.PACK PO (14:52)
[2024-07-13 15:34] LABS: Influenza A PCR NEGATIVE (Negative); Influenza B PCR NEGATIVE (Negative); Resp Syncy Virus RNA Qual PCR NEGATIVE (Negative); SARS COV2 PCR INHOUSE NEGATIVE (Negative)
--- OUTSIDE RECORDS SUMMARY | 2024-07-13 15:42 | XMS_ITS | Encounter Summary ---
Author Organization [facility] Address [address] [place] [address] Phone Care Team Providers Care Composition Weatherboard Installer Name Role Phone Tyler Adams ENVIRONMENTAL SCIENCE INSTRUCTOR Primary Care Provider [phone] Encounter Details Date Type Department Care Team (Late st Contact Info) Description 11/20/2022 Documentation Only [facility] [address] [place] [phone] Tyler Adams NP [facility] [place], [place] Social History Tobacco Use Types Packs/Day [...] Visit [facility] [address] [place] [phone] Jaspreet Nielsen MD [address] [place] [address] [place] [phone] documented as of this encounter Visit Diagnoses Not on filedocumented in this encounter Care Teams Composition Weatherboard Installer Relationship Specialty Start Date End Date Tyler Adams NP [facility] [place], [place] PCP - General Nurse Practitioner 11/08/22 documented as of this encounter
--- OUTSIDE RECORDS SUMMARY | 2024-07-13 15:42 | XMS_ITS ---
Author Organization [facility] Address [address] [place] [address] Care Team Providers Care Doggy Daycare Activities Director Name Role Phone DUSTY DAILY Primary Care Provider Lewis Newman Jr Unavailable REASON FOR VISIT COLON SCREENING Encounters Encounter Location Date Provider Diagnosis [facility] [address] [facility] [address] [place] [phone] 01/16/2023 Lewis Pozo Jr Plan Of Treatment No Information Progress Notes * DUSTY NESBITT JrDOB:1954 (69 yo M)Acc No.[id number]:01/16/2023 Progress Notes Patient:?DUSTY NESBITT Provider:?Lewis Pozo MD :1955???Age:67 Y???Sex:Male Vaibhav e:01/16/2023 Address:[address] [place], [place] [id number] Pcp:DUSTY DAILY Subjective: * Chief Complaints: * ???1. COLON SCREENING. * Medical History:? Objective: * Vitals:? Assessment: Plan: * Treatment: * * The named appointment provid er may or may not be the originator of this progress note, and it is not deemed complete until electronically signed by the appointment provider. Sign off status: Pending * Provider:?Lewis Pozo MD Date:?0 01/16/2023 Generated for Brendai ng/Faxing/eTransmitting on:?07/13/2024 03:42 PM EDT
--- OUTSIDE RECORDS SUMMARY | 2024-07-13 15:42 | XMS_ITS | Encounter Summary ---
Author Organization [facility] Address [address] [place] [address] Phone Care Team Providers Care Medical Records Specialist Name Role Phone Tyler Adams ZIGZAG MACHINE OPERATOR Primary Care Provider [phone] Encounter Details Date Type Department Care Team (Late st Contact Info) Description 01/15/2024 Documentation Only [facility] [address] [place] [address] Shanel Gross [address] [place] [address] Social History Tobacco Use Types [...] Visit [facility] [address] [place] [address] Jaspreet Nielsen MD [address] [place] [address] [place] [phone] documented as of this encounter Visit Diagnoses Not on filedocumented in this encounter Care Teams Medical Records Specialist Relationship Specialty Start Date End Date Tyler Adams NP [address] [place] [address] PCP - General Nurse Practitioner 11/08/22 documented as of this encounter
--- OUTSIDE RECORDS SUMMARY | 2024-07-13 15:42 | XMS_ITS | Patient Health Record ---
Author Organization [facility] Address [address] [place] [phone] Care Team Providers Care Veneer Sorter Name Role Phone DUSTY DAILY Primary Care Provider Lewis Newman Jr Unavailable [phone] Allergies Allergen (clinical drug ingredient) Drug/Non Drug Allergy documented on EMR Reaction Allergy Type Onset Date Status Sulfa Unknown Drug Allergy Active Reason For Referral No Information Medications Medication SIG (Take, Route, Frequency, Duration) Notes [...] 1 tablet Orally Once a day Active Immunizations Vaccine Route Administration Date Status Comme nts Influenza Unknown 02/20/2022 Administered Social History Tobacco Use: Social History Observation Description Date Details (start date - stop date) Former Smoker NA - NA Tobacco Use/Smoking Question Answer Notes Patient is [...] Never (0 point) Points 2 Interpretation Negative Problems Problem Type SNOMED Code ICD Code Onset Dates Problem Status W/U Status Risk Notes Problem 266944479 Colon cancer screening (Z12.11) Active confirmed Problem 32241821 Rectal bleeding (K62.5) Active confirmed Problem 986398662 Current use of aspirin (Z79.82) Active confirmed Plan Of Treatment Future Test Test Name Order Date COLONOSCOPY 07/03/2017 COLONOSCOPY 11/12/2022 Insurance Providers Payer Name Payer Address Payer Phone Subscriber Number Group Number Insured Name Patient Relationship to Insured Coverage Start Date Coverage End Date MEDICARE OF [place] [address] [place] [address] [id number] DUSTY NESBITT Self - patient is the insured [facility] INDEMNITY [address] [place] [address] [id number] DUSTY NESBITT Self - patient is the insured Medical (General) History Medical History History ICD Code coronary artery disease with history of [place] and stent placement 2006, second stent 2007 hypertension hyperlipidemia Colon polyps, colonoscopy , five-year followup due to prior history of adenomas. Surgical History Surgery Date(Month/Year) stent placement 2006, 2007
--- OUTSIDE RECORDS SUMMARY | 2024-07-13 15:42 | XMS_ITS | Clinical Summary ---
Author Organization [facility], Address [address] [place] [address] [place] [address] Phone Care Team Providers Care Pipefitter Name Role Phone Tyler Adams NP Primary Care Provider Allergies Active Allergy Reactions Criticality Noted Date [...] Visit [facility], [address] [place] [address] Jaspreet Nielsen MD [address] [place] [address] Health Maintenance Due Date Last [...] age to complete this topic Insurance MEDICARE [facility] Care Teams Pipefitter Relationship Specialty Start Date End Date Tyler Adams NP [facility] [place] [address] PCP - General Nurse Practitioner 11/08/22
--- OUTSIDE RECORDS SUMMARY | 2024-07-13 15:42 | XMS_ITS | Encounter Summary ---
Author Organization [facility] Address [address] [place] [address] Phone Care Team Providers Care Embroidery Assistant Name Role Phone Tyler Adams GENERAL I FARMWORKER Primary Care Provider [phone] Encounter Details Date Type Department Care Team (Late st Contact Info) Description 01/15/2024 Documentation Only [facility] [address] [place] [address] Shanel Gross [address] [place] [address] Social History Tobacco Use Types [...] Visit [facility] [address] [place] [address] Jaspreet Nielsen MD [address] [place] [address] [place] [phone] documented as of this encounter Visit Diagnoses Not on filedocumented in this encounter Care Teams Embroidery Assistant Relationship Specialty Start Date End Date Tyler Adams NP [address] [place] [address] PCP - General Nurse Practitioner 11/08/22 documented as of this encounter
--- OUTSIDE RECORDS SUMMARY | 2024-07-13 15:42 | XMS_ITS | Encounter Summary ---
Author Organization [facility] Address [address] [place] [address] Phone Care Team Providers Care Senior Manager Quality Assurance Name Role Phone Tyler Adams OFFICE SYSTEM ANALYST Primary Care Provider [phone] Encounter Details Date Type Department Care Team (Late st Contact Info) Description 01/15/2024 Documentation Only [facility] [address] [place] [address] Shanel Gross [address] [place] [address] Social History Tobacco Use Types [...] Visit [facility] [address] [place] [address] Jaspreet Nielsen MD [address] [place] [address] [place] [phone] documented as of this encounter Visit Diagnoses Not on filedocumented in this encounter Care Teams Senior Manager Quality Assurance Relationship Specialty Start Date End Date Tyler Adams NP [address] [place] [address] PCP - General Nurse Practitioner 11/08/22 documented as of this encounter
--- OUTSIDE RECORDS SUMMARY | 2024-07-13 15:42 | XMS_ITS | Encounter Summary ---
Author Organization [facility] Address [address] [place] [address] Phone Care Team Providers Care Driver Operator Name Role Phone yTler Adams CURTAIN CUTTER Primary Care Provider [phone] Encounter Details Date Type Department Care Team (Late st Contact Info) Description 11/13/2022 Documentation Only [facility] [address] [place] [phone] Tyler Adams NP [facility] [place], [place] Social History Tobacco Use Types Packs/Day [...] Visit [facility] [address] [place] [phone] Jaspreet Nielsen MD [address] [place] [address] [place] [phone] documented as of this encounter Visit Diagnoses Not on filedocumented in this encounter Care Teams Driver Operator Relationship Specialty Start Date End Date Tyler Adams NP [facility] [place], [place] PCP - General Nurse Practitioner 11/08/22 documented as of this encounter
--- OUTSIDE RECORDS SUMMARY | 2024-07-13 15:42 | XMS_ITS | Encounter Summary ---
Author Organization [facility] Address [address] [place] [address] Phone Care Team Providers Care Mechatronics Engineer Name Role Phone Tyler Adams VENEER TRIMMER Primary Care Provider [phone] Encounter Details Date Type Department Care Team (Late st Contact Info) Description 01/15/2024 Documentation Only [facility] [address] [place] [address] Shanel Gross [address] [place] [address] Social History Tobacco Use Types [...] [facility] [address] [place] [address] Jaspreet Nielsen MD [address] [place] [address] [place] [phone] documented as of this encounter Visit Diagnoses Not on filedocumented in this encounter Care Teams Mechatronics Engineer Relationship Specialty Start Date End Date Tyler Adams NP [address] [place] [address] PCP - General Nurse Practitioner 11/08/22 documented as of this encounter
[2024-07-13 16:18] LABS: Anion Gap 12 (12-20); Blood Urea Nitrogen 30 mg/dL (9-16); Calcium 8.7 mg/dL (8.4-10.2); Carbon Dioxide 19 mmol/L (22-29); Chloride 118 mmol/L (96-108); Creatinine Clr Calc Pharmacy 63.8; Estimated Glomerular Filt Rate 53; Glucose Random 115 mg/dL (60-115); Potassium 4.6 mmol/L (3.3-5.1); Sodium 144 mmol/L (135-145)
[2024-07-13 16:53] VITALS: BP 135/71; PULSE 90; RESP 18; TEMP 36.6; O2SAT 95
== END 2024-07-13 17:01 | disposition home or self-care (01) ==
PROVIDERS: Physician Assistant Medical; Registered Nurse Emergency; Emergency Provider Student in an Organized Health Care Education/Training Program; PCP Nurse Practitioner Family
DX: K52.9 Noninfective gastroenteritis and colitis, unspecified (principal); E87.5 Hyperkalemia; R11.2 Nausea with vomiting, unspecified; I12.9 Hypertensive chronic kidney disease with stage 1 through stage 4 chronic kidney disease, or unspecified chronic kidney disease; N18.30 Chronic kidney disease, stage 3 unspecified; E78.5 Hyperlipidemia, unspecified; I48.0 Paroxysmal atrial fibrillation; Z87.891 Personal history of nicotine dependence; Z03.818 Encounter for observation for suspected exposure to other biological agents ruled out
CPT/HCPCS: 0241U; 36415; 80048; 80053; 83690; 83735; 84484; 85025; 93005; 96361; 96374; 99284; 99285; J2405

== ENCOUNTER → 2024-07-13 13:21 | Outpatient (BNV) | payer MEDICARE, OTHER, SELFPAY | PROVIDERS: Emergency Provider Student in an Organized Health Care Education/Training Program; PCP Nurse Practitioner Family; Visit Provider Internal Medicine | DX: I45.10 Unspecified right bundle-branch block (principal); I44.5 Left posterior fascicular block | CPT/HCPCS: 93010 ==

== ENCOUNTER 2025-01-13 13:48 | Outpatient (AMB) | payer MEDICARE, OTHER, SELFPAY ==
--- NOTE | 2025-01-13 14:07 | A.OFFPC_ITS ---
Vital Signs 01/13/25 14:08 Height 5 ft 11 in Weight 250 lb BMI 34.9 BP 122/68 Blood Pressure Location Lt brachial Position Sitting Pulse 58 Pulse Source Pulse Oximeter Pulse Oximetry (%) 96 Intake Visit Reasons: Annual PE Allergies Sulfa (Sulfonamide Antibiotics) (SULFA(SULFONAMIDE ANTIBIOTICS)) Allergy (Unknown, Verified 01/13/25 14:58) CHILDHOOD- ? RXN, as a child Medication List - Last Reconciled 01/13/25 by Tyler Adams [facility]- amlodipine 5 mg PO DAILY aspirin (Adult Low Dose Aspirin) 81 mg PO DAILY colchicine 0.6 mg PO BID dorzolamide-timolol 22.3-6.8 mg/mL 1 drp ophthalmic (eye) BID latanoprost 0.005% 1 drp ophthalmic (eye) DAILY lisinopril 40 mg PO DAILY metoprolol succinate ER 50 mg PO DAILY ondansetron 4 mg PO Q8H PRN prednisone 50 mg PO DAILY 6 days rosuvastatin (Crestor) 40 mg PO DAILY valacyclovir 2,000 mg (2 x 1 gram) PO BID 1 day Tobacco use date assessed: 06/23/24 Dental Screening Dental Screen Date: 06/23/24 HPI Annual PE HPI Details History of Present Illness The patient is a 69-year-old male presenting for a physical examination. He reports sometimes experiencing a weaker urinary stream but is able to empty his bladder completely, indicating benign prostatic hyperplasia. He denies any chest pain, shortness of breath, abdominal pain, blood in stool, constipation, thyroid issues, suicidal ideation, or homicidal ideation. The patient has a history of gout but reports being asymptomatic currently. A uric acid level check is planned to monitor this condition. He sees a smoke and flame specialist and hand heel seat fitter on a regular basis. The patient is described as obese, which may contribute to his overall health status. Health Maintenance PSA ordered colon screen up to date vaccinations pt is due for, written down and given to pt to get at his pharmacy. Social History Review of Systems - Genitourinary: Reports weaker urinary stream but complete bladder emptying. - Cardiovascular: Denies chest pain, marybel rtness of breath. - Gastrointestinal: Denies abdominal sia n, blood in stool, constipation. - Endocrine: Denies thyroid issues. - Psychiatric: Denies suicidal ideation, homicidal ideation. Physical Exam General: Cooperative, healthy appearing, comfortable, no acute distress and well developed, morbidly obese Orientation: Patient oriented x3 Limitations: No limitations Head: Normal to inspection Ears: Hearing grossly normal bilaterally Nose: Normal external nose present Face and sinus: Normal facial exam Eyes: Appearance normal, both eyes and all related structures Neck: Normal visual inspection and Yes full ROM Respiratory: Normal respiratory effort and able to speak in complete sentences. Clear to auscultation bilaterally Cardiovascular: Regular rate and rhythm. Normal S1 and S2. faint systolic murmur noted GI: Normal to inspection. Soft to palpation and nontender : Testicles without masses/lesions and no hernias appreciated. Skin: No rashes or lesions noted Neuro: Patient oriented x3. Extremities: Normal to inspection Results Plan 1. Benign Prostatic Hyperplasia The patient reports a weaker urinary stream but is able to empty his bladder completely, suggesting benign prostatic hyperplasia. PSA ordered 2. Gout The patient has a history of gout but is currently asymptomatic; a uric acid lev el will be checked to monitor the condition. 3. Systolic Heart Murmur The patient has a systolic heart murmur, which is being monitored by his smoke and flame specialist. 4. Obesity The patient is noted to be obese, which may impact his overall health status. [facility] Medical History Stage 3 chronic kidney disease Elevated serum creatinine Gout Multiple lipomas PVD (peripheral vascular disease) Osteoarthritis Dyslipidemia Myocardial infarct HTN (hypertension) Paroxysmal A-fib Coronary artery disease Surgical History Stented coronary artery H/O heart artery stent No pertinent past surgical history Family History Father Substance use disorder Mother No problems noted. Brother No problems noted. Sister No problems noted. Son No problems noted. Daughter No problems noted. Social History Housing: House Alcohol intake: current Alcohol intake frequency: a few times a week Patient Tobacco Use Status: Former Tobacco user e-Cigarette/Vaping Use: Never Used Second Hand Smoke Exposure: No service: No Current occupational status: retired Cognitive needs: No Hearing needs: No Vision needs: Yes Questionnaire Thrive Questionnaire Date Thrive assessed: 06/20/24 I am a: Patient What is your living situation today?: I have a steady place to live Within the past 12 months, did the food you bought not last and you didn't have the money to get more?: Never true Within the past 12 months, did you worry whether your food would run out before you got money to buy more?: Never true Do you have trouble paying for medicines?: No Do you have trouble getting transportation to medical appointments?: No Do you have trouble paying your heating and electricity bill?: No Do you have trouble taking care of your child, family member or friend?: No Do you have trouble with day-to-day activities such as bathing, preparing meals, shopping, managing finances, etc.?: No Are you currently unemployed and looking for a job?: No Are you interested in more education?: No Please select the resources that you would like help with: None Currently or been in a relationship where the following occur: No concerns reported THRIVE Score: 0 LEON-7 AMB Questionnaire LEON-7 Date LEON - 7 assessed: 06/23/24 Source: Developed by Drs. Tom Paris, Tata Miller, Kash Nation and colleagues, with an educational christy from [employer]. Physical exam (Primary Care) Vital Signs: Last Vital Signs Pulse 58 01/13/25 14:08 BP 122/68 01/13/25 14:08 Pulse Ox 96 01/13/25 14:08 BMI result Body Mass Index 34.9 Tobacco/Smoking Status: Tobacco use Status Tobacco use date assessed 06/23/24 01/13/25 14:07 Patient Tobacco Use Status Former Tobacco user 01/13/25 14:07 e-Cigarette/Vaping Use Never Used 01/13/25 14:07 Thrive Assessment: Date of Thrive Assessment Date Thrive assessed 06/20/24 01/13/25 14:07 Currently or been in a relationship where the following occur: No concerns reported Coding Level of Care Code Est Pt Prev Care >65y(80121) Diagnoses Physical exam Z00.00 Gout flare M10.9 Assessment & Plan Assessment & Plan (1) Physical exam: Code(s): Z00.00 - Encounter for general adult medical examination without abnormal findings Category: Medical (2) Gout flare: Code(s): M10.9 - Gout, unspecified Category: Medical Plan . Orders: Orders TSH reflex Free T4 Today Z00.00 - Encounter for general adult medical examination without abnormal findings UA CC w/rflx Micro + Cult Today Z00.00 - Encounter for general adult medical examination without abnormal findings Complete Blood Count Auto Diff Today Z00.00 - Encounter for general adult medical examination without abnormal findings Comprehensive [place]. Panel Fast Today Z00.00 - Encounter for general adult medical examination without abnormal findings Lipid Panel Today Z00.00 - Encounter for general adult medical examination without abnormal findings Uric Acid Today M10.9 - Gout, unspecified, Z00.00 - Encounter for general adult medical examination without abnormal findings Medications: New prednisone 50 mg PO DAILY 6 tabs 2RF 6 days
[2025-01-13 14:08] VITALS: BP 122/68; PULSE 58; O2SAT 96; BMI 34.9
--- OUTSIDE RECORDS SUMMARY | 2025-01-13 16:54 | XMS_ITS | Encounter Summary ---
Author Organization [facility] Address [address] [place] [address] Phone Care Team Providers Care Broaching Machine Repairer Name Role Phone Tyler Adams MANUAL ARTS TEACHER Primary Care Provider [phone] Encounter Details Date Type Department Care Team (Late st Contact Info) Description 01/15/2024 Documentation Only [facility] [address] [place] [address] Shanel Gross [address] [place] [address] Social History Tobacco Use Types [...] [facility] [address] [place] [address] Jaspreet Nielsen MD [address] [place] [address] [place] [phone] documented as of this encounter Visit Diagnoses Not on filedocumented in this encounter Care Teams Broaching Machine Repairer Relationship Specialty Start Date End Date Tyler Adams NP [address] [place] [address] PCP - General Nurse Practitioner 11/08/22 documented as of this encounter
--- OUTSIDE RECORDS SUMMARY | 2025-01-13 16:54 | XMS_ITS | Encounter Summary ---
Author Organization [facility] Address [address] [place] [address] Phone Care Team Providers Care Electronic Scale Tester Name Role Phone Tyler Adams MIRROR SILVERER Primary Care Provider [phone] Encounter Details Date Type Department Care Team (Late st Contact Info) Description 11/13/2022 Documentation Only [facility] [address] [place] [phone] Tyler Adams NP [facility] [place], [place] Social History Tobacco Use Types Packs/Day [...] Visit [facility] [address] [place] [address] Jaspreet Nielsen MD [address] [place] [address] [place] [phone] documented as of this encounter Visit Diagnoses Not on filedocumented in this encounter Care Teams Electronic Scale Tester Relationship Specialty Start Date End Date Tyler Adams NP [facility] [place], [place] PCP - General Nurse Practitioner 11/08/22 documented as of this encounter
--- OUTSIDE RECORDS SUMMARY | 2025-01-13 16:54 | XMS_ITS | Patient Health Record ---
Author Organization [facility] Address [address] [place] [address] Care Team Providers Care High School Music Instructor Name Role Phone DUSTY DAILY Primary Care Provider Lewis Newman Jr Unavailable Allergies Allergen (clinical drug ingredient) Drug/Non Drug [...] Problem Status W/U Status Risk Notes Problem 835602540 Colon cancer screening (Z12.11) Active confirmed Problem 22771803 Rectal bleeding (K62.5) Active confirmed Problem 358743876 Current use of aspirin (Z79.82) Active confirmed Plan Of Treatment Future Test Test Name Order Date COLONOSCOPY 07/03/2017 COLONOSCOPY 11/12/2022 Insurance Providers Payer Name Payer Address Payer Phone Subscriber Number Group Number Insured Name Patient Relationship to Insured Coverage Start Date Coverage End Date MEDICARE OF [place] [address] [place] [address] [id number] DUSTY NESBITT Self - patient is the insured [facility] [address] [place] [address] [id number] DUSTY NESBITT Self - patient is the insured Medical (General) History Medical History History ICD Code coronary artery disease with history of [place] and stent placement 2006, second stent 2007 hypertension hyperlipidemia Colon polyps, colonoscopy , five-year followup due to prior history of adenomas. Surgical History Surgery Date(Month/Year) stent placement 2006, 2007
--- OUTSIDE RECORDS SUMMARY | 2025-01-13 16:54 | XMS_ITS | Encounter Summary ---
Author Organization [facility] Address [address] [place] [address] Phone Care Team Providers Care Electric Distribution Engineer Name Role Phone Tyler Adams TRAVELING PLANT OPERATOR Primary Care Provider [phone] Encounter Details Date Type Department Care Team (Late st Contact Info) Description 11/20/2022 Documentation Only [facility] [address] [place] [address] Tyler Adams NP [facility] [place], [place] Social History Tobacco Use Types Packs/Day [...] Visit [facility] [address] [place] [address] Jaspreet Nielsen MD [address] [place] [address] [place] [phone] documented as of this encounter Visit Diagnoses Not on filedocumented in this encounter Care Teams Electric Distribution Engineer Relationship Specialty Start Date End Date Tyler Adams NP [facility] [place], [place] PCP - General Nurse Practitioner 11/08/22 documented as of this encounter
--- OUTSIDE RECORDS SUMMARY | 2025-01-13 16:54 | XMS_ITS | Encounter Summary ---
Author Organization [facility] Address [address] [place] [address] Phone Care Team Providers Care Preventative Maintenance Technician Name Role Phone Tyler Adams INSPECTOR TOYS Primary Care Provider [phone] Encounter Details Date Type Department Care Team (Late st Contact Info) Description 01/15/2024 Documentation Only [facility] [address] [place] [address] Shanel Gross [address] [place] [address] Social History Tobacco Use Types [...] Visit [facility] [address] [place] [address] Jaspreet Nielsen MD [address] [place] [address] [place] [phone] documented as of this encounter Visit Diagnoses Not on filedocumented in this encounter Care Teams Preventative Maintenance Technician Relationship Specialty Start Date End Date Tyler Adams NP [address] [place] [address] PCP - General Nurse Practitioner 11/08/22 documented as of this encounter
--- OUTSIDE RECORDS SUMMARY | 2025-01-13 16:54 | XMS_ITS | Encounter Summary ---
Author Organization [facility] Address [address] [place] [address] Phone Care Team Providers Care Foreman/Pile Driving And Erection Name Role Phone Tyler Adams MOSS BLEACHER Primary Care Provider [phone] Encounter Details Date Type Department Care Team (Late st Contact Info) Description 01/15/2024 Documentation Only [facility] [address] [place] [address] Shanel Gross [address] [place] [address] Social History Tobacco Use Types [...] Visit [facility] [address] [place] [address] Jaspreet Nielsen MD [address] [place] [address] [place] [phone] documented as of this encounter Visit Diagnoses Not on filedocumented in this encounter Care Teams Foreman/Pile Driving And Erection Relationship Specialty Start Date End Date Tyler Adams NP [address] [place] [address] PCP - General Nurse Practitioner 11/08/22 documented as of this encounter
--- OUTSIDE RECORDS SUMMARY | 2025-01-13 16:54 | XMS_ITS | Encounter Summary ---
Author Organization [facility] Address [address] [place] [address] Phone Care Team Providers Care Pharmacy Grad Intern Name Role Phone Tyler Adams MICROBIOLOGY PROFESSOR Primary Care Provider [phone] Encounter Details Date Type Department Care Team (Late st Contact Info) Description 01/15/2024 Documentation Only [facility] [address] [place] [address] Shanel Gross [address] [place] [address] Social History Tobacco Use Types [...] [facility] [address] [place] [address] Jaspreet Nielsen MD [address] [place] [address] [place] [phone] documented as of this encounter Visit Diagnoses Not on filedocumented in this encounter Care Teams Pharmacy Grad Intern Relationship Specialty Start Date End Date Tyler Adams NP [address] [place] [address] PCP - General Nurse Practitioner 11/08/22 documented as of this encounter
--- OUTSIDE RECORDS SUMMARY | 2025-01-13 16:54 | XMS_ITS | Clinical Summary ---
Author Organization [facility], Address [address] [place] [address] [place] [address] Phone Care Team Providers Care Health Care Specialist Name Role Phone Tyler Adams NP Primary Care Provider [phone] Allergies Active Allergy Reactions Criticality Noted Date Comments Sulfa Antibiotics Other (see comments) 04/16/20 11 Converted from Generic Allergy: Sulfa UNKNOWN RXN Converted from Drug Class Allergy: Sulfonamides (Systemic) [...] disease Gout Essential (primary) hypertension Dyslipidemia Immunizations Immunization Administration Dates Next Due Influenza Split High [...] Visit [facility] [address] [place] [address] Jaspreet Nielsen MD [address] [place] [address] Health Maintenance Due Date Last Done Comments Pneumococcal Vaccine: 50+ Years (1 of 2 - PCV) 02/04/1972 Colorectal Cancer Screening: Annual FOBT 2002 Colorectal Cancer Screening: Colonoscopy 2002 Colorectal Cancer Screening: Sigmoidoscopy 2002 Influenza Vaccine (#1) 2025 2, 03/02/2019, 02/16/2018, Additional history exists Hepatitis B Vaccine Aged Out No longe r eligible based on patient's age to complete this topic Insurance Medicare [facility] Care Teams Health Care Specialist Relationship Specialty Start Date End Date Tyler Adams NP [address] [place] [address] PCP - General Nurse Practitioner 11/08/22
== END 2025-01-13 16:43 | disposition home or self-care (01) ==
LOC: HO.HMCC 13:49
PROVIDERS: PCP Nurse Practitioner Family; Visit Provider Nurse Practitioner Family
DX: Z00.00 Encounter for general adult medical examination without abnormal findings (principal); M10.9 Gout, unspecified

== ENCOUNTER → 2025-01-13 13:48 | Outpatient (BNVA) | payer MEDICARE, OTHER, SELFPAY | PROVIDERS: PCP Nurse Practitioner Family; Visit Provider Nurse Practitioner Family | DX: Z00.00 Encounter for general adult medical examination without abnormal findings (principal); M10.9 Gout, unspecified; Z87.891 Personal history of nicotine dependence | CPT/HCPCS: 99397 ==

== ENCOUNTER 2025-01-16 11:03 | Outpatient (REF) | payer MEDICARE, OTHER, SELFPAY ==
--- OUTSIDE RECORDS SUMMARY | 2025-01-16 11:06 | XMS_ITS | Encounter Summary ---
Author Organization [facility] Address [address] [place] [address] Phone Care Team Providers Care Ice Cream Server Name Role Phone Tyler Adams LITIGATION LEGAL ASSISTANT Primary Care Provider [phone] Encounter Details Date Type Department Care Team (Late st Contact Info) Description 01/15/2024 Documentation Only [facility] [address] [place] [address] Shanel Gross [address] [place] [address] Social History Tobacco Use Types [...] Visit [facility] [address] [place] [address] Jaspreet Nielsen MD [address] [place] [address] [place] [phone] documented as of this encounter Visit Diagnoses Not on filedocumented in this encounter Care Teams Ice Cream Server Relationship Specialty Start Date End Date Tyler Adams NP [address] [place] [address] PCP - General Nurse Practitioner 11/08/22 documented as of this encounter
--- OUTSIDE RECORDS SUMMARY | 2025-01-16 11:06 | XMS_ITS | Encounter Summary ---
Author Organization [facility] Address [address] [place] [address] Phone Care Team Providers Care Process Improvement Analyst Name Role Phone Tyler Adams COMMUNITY MENTAL HEALTH SOCIAL WORKER Primary Care Provider [phone] Encounter Details Date Type Department Care Team (Late st Contact Info) Description 11/13/2022 Documentation Only [facility] [address] [place] [phone] Tlyer Adams NP [address] [place], [place] Social History Tobacco Use Types Packs/Day [...] Visit [facility] [address] [place] [phone] Jaspreet Nielsen MD [address] [place] [address] [place] [phone] documented as of this encounter Visit Diagnoses Not on filedocumented in this encounter Care Teams Process Improvement Analyst Relationship Specialty Start Date End Date Tyler Adams NP [facility] [place], [place] PCP - General Nurse Practitioner 11/08/22 documented as of this encounter
--- OUTSIDE RECORDS SUMMARY | 2025-01-16 11:06 | XMS_ITS | Encounter Summary ---
Author Organization [facility] Address [address] [place] [address] Phone Care Team Providers Care Microsoft Exchange Administrator Name Role Phone Tyler Adams AUDIO OPERATOR Primary Care Provider [phone] Encounter Details Date Type Department Care Team (Late st Contact Info) Description 11/20/2022 Documentation Only [facility] [address] [place] [phone] Tyler Adams NP [facility] [place], [place] Social History Tobacco Use Types Packs/Day [...] Visit [facility] [address] [place] [phone] Jaspreet Nielsen MD [address] [place] [address] [place] [phone] documented as of this encounter Visit Diagnoses Not on filedocumented in this encounter Care Teams Microsoft Exchange Administrator Relationship Specialty Start Date End Date Tyler Adams NP [facility] [place], [place] PCP - General Nurse Practitioner 11/08/22 documented as of this encounter
--- OUTSIDE RECORDS SUMMARY | 2025-01-16 11:06 | XMS_ITS | Encounter Summary ---
Author Organization [facility] Address [address] [place] [address] Phone Care Team Providers Care Sales Solutions Associate Name Role Phone Tyler Adams C CONSULTANT Primary Care Provider [phone] Encounter Details Date Type Department Care Team (Late st Contact Info) Description 01/15/2024 Documentation Only [facility] [address] [place] [address] Shanel Gross [address] [place] [address] Social History Tobacco Use Types [...] Visit [facility] [address] [place] [address] Jaspreet Nielsen MD [address] [place] [address] [place] [phone] documented as of this encounter Visit Diagnoses Not on filedocumented in this encounter Care Teams Sales Solutions Associate Relationship Specialty Start Date End Date Tyler Adams NP [address] [place] [address] PCP - General Nurse Practitioner 11/08/22 documented as of this encounter
--- OUTSIDE RECORDS SUMMARY | 2025-01-16 11:06 | XMS_ITS | Clinical Summary ---
Author Organization [facility] [place], Address [address] [place] [address] [place] [address] Phone Care Team Providers Care Blood Bank Coordinator Name Role Phone Tyler Adams NP Primary Care Provider [phone] Allergies Active Allergy Reactions Criticality Noted Date [...] Visit [facility] [address] [place] [address] Jaspreet Nielsen MD [address] [facility] [place] [address] Health Maintenance Due Date Last [...] age to complete this topic Insurance Medicare [facility] Care Teams Blood Bank Coordinator Relationship Specialty Start Date End Date Tyler Adams NP [address] [place] [address] PCP - General Nurse Practitioner 11/08/22
--- OUTSIDE RECORDS SUMMARY | 2025-01-16 11:06 | XMS_ITS | Clinical Summary ---
Author Organization [facility] Address [address] [address] Phone Care Team Providers Care Steam Clothes Press Operator Name Role Phone Tyler Adams NP Primary Care Provider + Madison Clayton MD Unavailable Allergies Active Allergy Reactions Criticality Noted Date Comments Sulfa (Sulfonamide Antibiotics) Unknown 04/16/2011 Converted from Generic Allergy: Sulfa UNKNOWN RXN Converted from Drug Class Allergy: Sulfonamides (Systemic) Medications aspirin 81 MG EC tablet Take 1 tablet by mouth daily. Active latanoprost (XALATAN) 0.005 % ophthalmic solution Place 1 drop into each eye nightly at bedtime. Active acetaminophen (TYLENOL) 500 MG tablet Take 500 mg by mouth every 8 (eight) hours as needed for pain (specific location in comments). Active metoprolol succinate (TOPROL-XL) 50 MG 24 hr tabletIndications:Medica tion refill Take 1 tablet (50 mg total) by mouth daily. 90 tablet 3 11/26/19 24 Active dorzolamide-timoloL (COSOPT) 22.3-6.8 mg/mL ophthalmic solution Place 1 drop into each eye 2 (two) times a day. 05/16/19 25 Active rosuvastatin (CRESTOR) 40 MG tabletIndications:Pure hypercholesterolemia TAKE 1 TABLET DAILY 90 tablet 3 07/21/19 25 Active lisinopril (PRINIVIL,ZESTRIL) 40 MG tabletIndications:Medica tion refill TAKE 1 TABLET DAILY 90 tablet 3 07/21/19 25 Active amLODIPine (NORVASC) 5 MG tabletIndications:Essent ial hypertension TAKE 1 TABLET DAILY 90 tablet 3 07/21/19 25 Active Active Problems Problem Noted Date Diagnosed Date Localized edema 10/11/2017 Assessment & Plan (02/23/2020 3:44 PM EDT): Mild edema today. Likely related to his weight. We again reviewed conservative measures. Assessment & Plan (10/21/2018 10:43 AM EDT): Resolved. Assessment & Plan (01/15/2018 4:22 PM EDT): Improving Assessment & Plan (10/11/2017 12:26 PM EDT): Tyler was unaware that he was edematous. There is no clear etiology for this. He is on no medications that would produce this. 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 He'll keep them elevated and keep me posted but I'm going to bring him back in 3 months to see what happened. Coronary artery disease invo lving tu[place]umne coronary artery of tu[place] heart without angina pectoris 10/09/2017 Overview (07/14/2018): 09/2006 PCI STEMI BMS RCA 10/2008 PCI MIKALA RCA 01/2018 PCI MIKALA RCA Assessment & Plan (02/23/2020 3:43 PM EDT): Asymptomatic. Beginning to do some biking and have encouraged him to continue to do so when he is going to get a stationary bike. Assessment & Plan (10/20/2019 3:11 PM EDT): Asymptomatic. Active. Assessment & Plan (04/22/2019 1:18 PM EST): Asymptomatic. I have discontinued his Brilinta but he needs to continue his aspirin therapy. Assessment & Plan (10/21/2018 10:43 AM EDT): Doing well. Will continue dual antiplatelet therapy until January and then discontinue his Brilinta. Assessment & Plan (07/15/2018 10:07 AM EDT): No angina. Remains on dual antiplatelet therapy. Assessment & Plan (01/31/2018 5:12 PM EDT): He is now 2 weeks out from his last intervention. He is beginning to exercise again. I told him to wait about another 2 weeks before doing high levels of activity. Assessment & Plan (01/15/2018 4:20 PM EDT): Continuing to do well and looking forward to long-term. No symptoms. Assessment & Plan (10/11/2017 12:24 PM EDT): Doing well. No evidence of clinical recurrence. Essential hypertension 10/09/2017 Assessment & Plan (02/23/2020 3:43 PM EDT): Borderline control. No changes. Monitors at home. Assessment & Plan (10/20/2019 3:11 PM EDT): Borderline control. No longer on HCTZ. He will monitor. Assessment & Plan (04/22/2019 1:19 PM EST): Elevated today. He can attempt to lose some weight but I have added HCTZ 12.5 to his regimen. He will monitor at home. Assessment & Plan (10/21/2018 10:43 AM EDT): Elevated today but at home he is typically running in the 130s. He will continue to monitor Assessment & Plan (07/15/2018 10:11 AM EDT): I have increased his lisinopril to 20 mg a day. He will monitor at home and call if he remains consistently over 140. Assessment & Plan (01/15/2018 4:21 PM EDT): Well-controlled on present therapy. Assessment & Plan (10/11/2017 12:25 PM EDT): Adequate control on present therapy. Pure hypercholesterolemia 10/09/2017 Assessment & Plan (02/23/2020 3:44 PM EDT): Lipid profile at goal with an LDL in the 50s and HDL in the 30s. Assessment & Plan (10/20/2019 3:12 PM EDT): LDL has gone up a bit. No changes but will repeat in several months. Assessment & Plan (04/22/2019 1:22 PM EST): Good profile. No changes. Hepatic and renal function are fine. Assessment & Plan (10/21/2018 10:44 AM EDT): Good profile. LDL in the 50s and HDL in the 30s. Assessment & Plan (07/15/2018 10:10 AM EDT): Recent labs include an LDL in the 60s and HDL mid 30s. Creatinine is slightly elevated to 1.5. Since I am increasing his lisinopril him and have him come back with a metabolic profile in 2 or 3 months. Assessment & Plan (01/15/2018 4:21 PM EDT): Remains on his statin and will have lipids drawn before his next visit. Assessment & Plan (10/11/2017 12:25 PM EDT): Slightly elevated today. He is a Ready on the top dose of atorvastatin. He is going to watch his diet a little more carefully and I will repeat his numbers in 3 months. If it remains elevated I may add Zetia or change him to rosuvastatin. Paroxysmal atrial fibrillation 10/09/2017 Overview (10/09/2017): REMOTE Assessment & Plan (02/23/2020 3:43 PM EDT): No episodes and its been many years. Assessment & Plan (10/20/2019 3:11 PM EDT): States he is in sinus rhythm. 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 Assessment & Plan (10/21/2018 10:43 AM EDT): Remains in sinus. Assessment & Plan (01/31/2018 5:14 PM EDT): ECG today confirms ongoing sinus rhythm at a rate of 48 with left axis but no ST or T wave changes or evidence of Q wave infarction. Assessment & Plan (01/15/2018 4:21 PM EDT): Remains in sinus rhythm on metoprolol and aspirin. No events in years. Encounters Date Type Department Care Team Description 11/26/2024 9:20 AM EDT Office Visit [facility] [address] [facility] [address]rd Floor, [address] [place], [place] [phone] Geoffrey Gilbert MD Coronary artery disease involving tuolumne coronary artery of tuolumne heart without angina pectoris (Primary Dx); Essential hypertension; Pure hypercholesterolemia from Last 3 Months Immunizations Immunization Administration Dates Next Due COVID-19 (Pre-02/25) Pfizer Vaccine, mRNA, PF ,06/09/2020 Influenza High-Dose Trivalent Preservative Free IM 02/16/2018 Influenza Quadrivalent MDCK w/Preservative IM Influenza Quadrivalent w/ Preservative IM 2017 Tdap 12/04/2014 Zoster recombinant 11/11/2018 Family History Medical History Relation Comments CV disease Maternal Grandmother 2 CV disease Mother 2 Relation Status Comments Maternal Grandmother 1 Maternal Grandmother 2 Mother 1 Mother 2 Social History Tobacco Use Types Packs/Day Years Used Date Smoking Tobacco: Former Smokeless Tobacco: Never Tobacco Cessation:Counseling Given: Not Answered Alcohol Use Standard Drinks/Week Comments Yes 0 (1 standard drink = 0.6 oz pur e alcohol) Education Answer Date Recorded Are you interested in more education? Not on alicia e 09/08/2022 Are you concerned about learning? Not on file 09/08/2022 No 09/08/2022 No 09/08/2022 Digital Access Answer Date Recorded No 09/29/2022 No 09/29/2022 Reliable internet access at home? Not on file 09/29/2022 Device with a working camera? Not on file Sex and Gender Information Value Date Recorded Sex Assigned at Not on file Legal Sex Male 5:36 PM EST Gender Identity Not on file Sexual Orientation Not on file Last Filed Vital Signs Vital Sign Reading Time Taken Comments Blood Pressure 138/84 11/26/2024 9:16 AM EDT Pulse 55 11/26/2024 9:16 AM EDT Temperature - - Respiratory Rate - - Oxygen Saturation 97% 11/26/2024 9:16 AM EDT Inhaled Oxygen Concentration - - Weight 113.4 kg (250 lb) 11/26/2024 9:16 AM EDT Height 180.3 cm (5' 10.98 ) 11/26/2024 9:16 AM E DT Body Mass Index 34.88 11/26/2024 9:16 AM EDT Plan of Treatment Upcoming Encounters Date Type Department Care Team (Late st Contact Info) Description 06/01/2025 9:20 AM EST Office Visit [facility] [address] [place] [address] [address]rd Floor, [address] [place] [address] Geoffrey Gilbert MD [address], [address] [place] [id number] [email or web address] Health Maintenance Due Date Last Done Comments DEPRESSION SCREENING 1965 SMOKING Hx and SMOKELESS TOBACCO SCREENING 1966 HEPATITIS C SCREENING 1971 COLOGUARD 1998 COLONOSCOPY 1998 FOBT 1998 SIGMOIDOSCOPY 1998 VIRTUAL COLONOSCOPY 1998 PNEUMOCOCCAL VACCINES (50+ years) (1 of 1 - PCV) 2003 RSV VACCINE (1 - Risk 60-74 years 1-dose series) 2013 ABDOMINAL AORTIC ANEURYSM (AAA) SCREENING 2018 ZOSTER VACCINES (2 of 2) 01/06/2019 11/11/2018 COLORECTAL CANCER SCREENING 10/31/2023 FIT TEST 10/31/2023 10/30/2022 COVID-19 VACCINE ( season) 2024 2023, 03/05/2022, 02/02/2021, Additional history exists CREATININE LEVEL 11/25/2024 11/26/2023, , 10/13/2020 POTASSIUM LEVEL 11/25/2024 11/26/2023 Adult Td,Tdap Booster 12/04/2024 12/04/2014 INFLUENZA VACCINE (#1) 2024 , 01/20/2023, 01/20/2023, Additional history exists BLOOD PRESSURE 05/29/2025 11/26/2024 HEPATITIS A VACCINES Aged Out No long er eligible based on patient's age to complete this topic HIB VACCINES Aged Out No longer eligi ble based on patient's age to complete this topic MENINGOCOCCAL VACCINES (ACWY) Aged Out No longer eligible based on patient's age to complete this topic MENINGOCOCCAL VACCINES (B) Aged Out N o longer eligible based on patient's age to complete this topic Medical Devices Not on file Procedures Procedure Name Priority Date/Time Associated Diagnosis Comments BASIC METABOLIC PANEL Routine 11/26/2023 11:37 AM EDT Essential hypertension from Last 3 Months or Most Recently Relevant to Health Maintenance Results * (ABNORMAL) Basic metabolic panel (11/26/2023 11:37 AM EDT) SODIUM 139 133 - 146 mmol/L [facility] CHLORIDE 107 96 - 108 mmol/L [facility] POTASSIUM 5.3(H) 3.3 - 5.1 mmol/L [facility] CO2 24 21 - 35 mmol/L [facility] BUN 25(H) 6 - 19 mg/dL [facility] CREATININE 1.40 0.5 - 1.5 mg/dL [facility] GLUCOSE 105(H) 70 - 99 mg/dL [facility] CALCIUM 9.5 8.4 - 10.3 mg/dL [facility] EGFR 54(L) >59 mL/min/1.7 3m2 [facility] Comment:Estimated glomerular filtration rate calculated using the CKD-EPI refit equation. ANION GAP 13 10 - 20 mmol/L [facility] Blood 11/26/2023 11:3 7 AM EDT 11/26/2023 11:42 AM EDT us Geoffrey Gilbert MD LAB BLOOD ORDERABLES Final Re sult [facility] [address] [place] [address] from Last 3 Months or Most Recently Relevant to Health Maintenance Insurance MEDICARE PART A & B [facility] MEDICARE SUPPLEMENT MEDICARE PART A & B [facility] MEDICARE SUPPLEMENT MEDICARE PART A & B [facility] MEDICARE SUPPLEMENT MEDICARE PART A & B [employer] MEDICARE SUPPLEMENT MEDICARE PART A & B [employer] MEDICARE SUPPLEMENT MEDICARE PART A & B [employer] MEDICARE SUPPLEMENT MEDICARE PART A & B [employer] MEDICARE SUPPLEMENT MEDICARE PART A & B [facility] EX[employer] MEDICARE SUPPLEMENT MEDICARE PART A & B [facility] [employer] MEDICARE SUPPLEMENT Care Teams Steam Clothes Press Operator Relationship Specialty Start Date End Date Tyler Adams NP [address] [facility] [place] [address] PCP - General Family Medicine 10/21/18 Madison Clayton MD [address] [place] [address] Orthopedic Surgery 10/12/20 Additional Source Comments The information contained in this document represents components of the legal health record. It is not the complete legal health record.[facility]
--- OUTSIDE RECORDS SUMMARY | 2025-01-16 11:06 | XMS_ITS | Encounter Summary ---
Author Organization [facility] Address [address] [place] [address] Phone Care Team Providers Care Swimming Pool Servicer Name Role Phone Tyler Adams SWITCHGEAR REPAIRER Primary Care Provider [phone] Encounter Details Date Type Department Care Team (Late st Contact Info) Description 01/15/2024 Documentation Only [facility] [address] [place] [address] Shanel Gross [address] [place] [address] Social History Tobacco Use Types [...] Visit [facility] [address] [place] [address] Jaspreet Nielsen MD [address] [place] [address] [place] [phone] documented as of this encounter Visit Diagnoses Not on filedocumented in this encounter Care Teams Swimming Pool Servicer Relationship Specialty Start Date End Date Tyler Adams NP [address] [place] [address] PCP - General Nurse Practitioner 11/08/22 documented as of this encounter
--- OUTSIDE RECORDS SUMMARY | 2025-01-16 11:06 | XMS_ITS | Encounter Summary ---
Author Organization [facility] Address [address] [place] [address] Phone Care Team Providers Care Api Developer Name Role Phone Tyler Adams DISPUTE SPECIALIST Primary Care Provider [phone] Encounter Details Date Type Department Care Team (Late st Contact Info) Description 01/15/2024 Documentation Only [facility] [address] [place] [address] Shanel Gross [address] [place] [address] Social History Tobacco Use [...] Visit [facility] [address] [place] [address] Jaspreet Nielsen MD [address] [place] [address] [place] [phone] documented as of this encounter Visit Diagnoses Not on filedocumented in this encounter Care Teams Api Developer Relationship Specialty Start Date End Date Tyler Adams NP [address] [place] [address] PCP - General Nurse Practitioner 11/08/22 documented as of this encounter
--- OUTSIDE RECORDS SUMMARY | 2025-01-16 11:07 | XMS_ITS | Patient Health Record ---
Author Organization [facility] Address [address] [place] [address] Care Team Providers Care Linter Saw Sharpener Name Role Phone DUSTY DAILY Primary Care [...] Problem Status W/U Status Risk Notes Problem 820407443 Colon cancer screening (Z12.11) Active confirmed Problem [id number] Rectal bleeding (K62.5) Active confirmed Problem [id number] Current use of aspirin (Z79.82) Active confirmed Plan Of Treatment Future Test Test Name Order Date COLONOSCOPY 07/03/2017 COLONOSCOPY 11/12/2022 Insurance Providers Payer Name Payer Address Payer Phone Subscriber Number Group Number Insured Name Patient Relationship to Insured Coverage Start Date Coverage End Date MEDICARE OF [place] [address] [place] [address] [id number] DUSTY NESBITT Self - patient is the insured [facility] [address] [place] [address] [id number] DUSTY NESBITT Self - patient is the insured Medical (General) History Medical History History ICD Code coronary artery disease with history of LA and stent placement 2006, second stent 2007 hypertension hyperlipidemia Colon polyps, colonoscopy , five-year followup due to prior history of adenomas. Surgical History Surgery Date(Month/Year) stent placement 2006, 2007
[2025-01-16 13:37] LABS: MANUAL DIFF FLAG NO
[2025-01-16 13:41] LABS: Appearance Urine Clear; Glucose Urine UA Negative (Negative); PH 5.5 (5.0-9.0); Specific Gravity - Urine 1.020 (1.005-1.025); UMIC TRIGGER UACC YES
[2025-01-16 13:41] LABS: Hematocrit 39.3 % (42.0-52.0); Hemoglobin 13.5 g/dl (14.0-18.0); Imm Gran Abs Auto 0.02 X10*3/uL (0.00-0.03); Imm Gran Pct Auto 0.4 % (0.0-0.4); Lymphocytes Absolute Auto 1.2 X10*3/uL (1.2-4.9); Mean Corpuscular HGB Conc 34.4 g/dl (31.0-36.0); Mean Corpuscular Hemoglobin 29.1 pg (27.0-33.0); Mean Corpuscular Volume 84.7 fL (80.0-98.0); NRBC Abs Auto 0.000 X10*3/uL (0.0-0.012); NRBC Pct Auto 0.0 /100WBC (0.0-0.2); Platelet Count 181 X10*3/uL (160-400); Red Blood Count 4.64 X10*6/uL (4.60-5.80); White Blood Count 5.1 X10*3/uL (4.8-10.8)
[2025-01-16 14:04] LABS: Alanine Aminotransferase 28 U/L (0-40); Albumin Level 4.2 g/dL (3.5-5.0); Alkaline Phosphatase 38 U/L (39-117); Anion Gap 14 (12-20); Aspartate Amino Transferase 29 U/L (5-37); Blood Urea Nitrogen 28 mg/dL (9-16); Calcium 9.3 mg/dL (8.4-10.2); Carbon Dioxide 24 mmol/L (22-29); Chloride 107 mmol/L (96-108); Cholesterol 103 mg/dL (<200); Estimated Glomerular Filt Rate 40; HDL Cholesterol 30 mg/dL (>40); Potassium 4.5 mmol/L (3.3-5.1); Sodium 140 mmol/L (135-145); Total Protein 6.9 g/dL (6.5-8.0); Triglycerides 103 mg/dL (<150); Uric Acid 9.4 mg/dL (3.4-7.0)
== END 2025-01-16 11:04 | disposition home or self-care (01) ==
LOC: HO.HMGCLDS 11:03
PROVIDERS: PCP Nurse Practitioner Family; Visit Provider Nurse Practitioner Family
DX: Z00.00 Encounter for general adult medical examination without abnormal findings (principal); M10.9 Gout, unspecified; Z13.6 Encounter for screening for cardiovascular disorders
CPT/HCPCS: 36415; 80053; 80061; 81001; 84443; 84550; 85025

== ENCOUNTER 2025-01-27 16:25 | Emergency (ER) | payer MEDICARE, OTHER, SELFPAY ==
--- NOTE | 2025-01-27 16:28 | ECG_ITS ---
Test Reason : CHEST PAIN Blood Pressure : */* mmHG Vent. Rate : 60 BPM Atrial Rate : 60 BPM P-R Int : 166 ms QRS Dur : 116 ms QT Int : 430 ms P-R-T Axes : 27 -34 21 degrees QTcB Int : 430 ms Sinus rhythm with Premature ventricular complexes or Fusion complexes Left axis deviation Abnormal ECG When compared with ECG of 13-Jul-2024 14:34, Fusion complexes are now Present Premature ventricular complexes are now Present Vent. rate has decreased by 29 bpm Left posterior fascicular block is no longer Present Incomplete right bundle branch block is no longer Present Borderline criteria for Anterior infarct are no longer Present Referred By: Roseann Huerta Electronically Signed By: Hernán Hameed
[2025-01-27 16:29] VITALS: BP 185/84; PULSE 52; RESP 18; TEMP 36.4; O2SAT 98; BMI 35.7
--- NOTE | 2025-01-27 16:30 | ED_ITS ---
HPI - General Adult General Chief complaint: Arrhythmia/Palpitations Stated complaint: Palpitations Time Seen by Provider: 01/27/25 17:48 Source: patient Mode of arrival: ambulatory Limitations: no limitations History of Present Illness ED Provider: Dr. Maher HPI narrative: 69-year-old male history of CKD, cardiac arrest with 2 stents placement history of hypertension presenting to ER today for palpitations. Patient stated that he was working out at a gym and he went for a walk. He has sudden feeling of palpitation in his chest. Patient does not complain of any chest pain. He is asymptomatic at this time. No recent travel or surgery. Patient's states he feels back to his baseline health at this time. Related Data Home Medications ?Medication ?Instructions ?Recorded ?Confirmed aspirin 81 mg tablet,delayed 81 mg PO DAILY 03/09/20 0 01/13/25 release (Adult Low Dose Aspirin) dorzolamide 22.3 mg-timolol 6.8 1 drp ophthalmic (eye) BID 03/09/20 01/13/25 mg/mL eye drops latanoprost 0.005 % eye drops 1 drp ophthalmic (eye) D AILY 03/09/20 01/13/25 lisinopril 40 mg tablet 40 mg PO DAILY 03/09/2001/04 rosuvastatin 40 mg tablet (Crestor) 40 mg PO DAILY 08/2301/13/25 amlodipine 5 mg tablet 5 mg PO DAILY 12/17/2301/13 metoprolol succinate 50 mg 50 mg PO DAILY 12/17/2302/27 tablet,extended release 24 hr Previous Rx's ?Medication ?Instructions ?Recorded colchicine 0.6 mg tablet 0.6 mg PO BID #40 tabs 12/13 ondansetron 4 mg disintegrating 4 mg PO Q8H PRN nausea and 07/13/24 tablet vomiting #10 tabs valacyclovir 1 gram tablet 2,000 mg (2 x 1 gram) PO BI D 1 day 12/29/24 #4 tabs prednisone 50 mg tablet 50 mg PO DAILY 6 days #6 tab s 01/13/25 Allergies Allergy/AdvReac Type Severity Reaction Status Date / Time Sulfa (Sulfonamide Allergy Unknown CHILDHOOD- Verified 01/27/25 16:30 Antibiotics) ? RXN, as (SULFA(SULFONAMIDE a child ANTIBIOTICS)) Review of Systems 2 Review of Systems: Pertinent review of systems as mentioned in HPI. All other system otherwise negative. [facility] Past Medical History [facility] Narrative: Medical history as mentioned in [facility] Medical History (Updated 01/27/25 @ 18:25 by Dolores Maher DO) Stage 3 chronic kidney disease Elevated serum creatinine Gout Multiple lipomas PVD (peripheral vascular disease) Osteoarthritis Dyslipidemia Myocardial infarct HTN (hypertension) Paroxysmal A-fib Coronary artery disease Surgical History Stented coronary artery H/O heart artery stent No pertinent past surgical history Family History Family History Father Substance use disorder Mother No problems noted. Brother No problems noted. Sister No problems noted. Son No problems noted. Daughter No problems noted. Social History Social History Housing: House Alcohol intake: current Alcohol intake frequency: a few times a week Alcohol type: wine Patient Tobacco Use Status: Former Tobacco user Smoked in Last 30 Days: No e-Cigarette/Vaping Use: Never Used Second Hand Smoke Exposure: No Use of substances other than those prescribed or required for medical reasons: No Advance Directives: No Advance Directives Information Provided: No Do you have a plan to hurt others: No Plan service: No Current occupational status: retired Cognitive needs: No Hearing needs: No Vision needs: Yes Physical Exam ED Exam Exam: General: Pleasant, no distress, interacting appropriately Head: Normacephalic, atraumatic ENT: oral mucosa moist, neck supple, no tracheal deviation Cardiovascular: regular rate, regular rhythm, no murmurs, rubbing, gallops Respiratory: CTAB, no wheeze, rales, rhonchi Extremities: No limb pain or swelling, no calf tenderness Neurological: Awake and alert, no facial droop noted Skin: Warm and dry Psychiatric: Appropriate mood and thoughts Vital Signs: Vital Signs - 24 hr 01/27/25 16:29 01/27/25 17:57 Temperature 97.5 F 97.5 F Pulse Rate 52 52 Respiratory Rate 18 18 Blood Pressure 185/84 H 185/84 H Pulse Oximetry 98 98 Oxygen Delivery Method Room Air Room Air BMI result Body Mass Index 35.7 Course Course Course Narrative: This is a rapid medical exam performed by Jamal Huerta NP: Additional HPI, ROS, PE not included below will be deferred to primary provider. Patient is a 69-year-old male presenting to the ED with complaint of palpitations. States he has been working out/walking, and may be dehydrated, unsure if related. Plan: EKG, labs Medical Decision Making Medical Decision Making [facility] Narrative: 69-year-old male history of cardiac arrest, CAD with 2 stents, hypertension presented hospital today for evaluation of palpitations. He is asymptomatic of any palpitations at this time. Patient does not have any chest pain. EKG shows PVC. Normal sinus rhythm. No sign of STEMI. Troponin is negative here. Patient's lab work did show elevated creatinine 1.8 this was communicated with the patient's recommend repeat chemistry to trend his creatinine. Patient does have a follow up appointment on February 03. I did discuss with the patient my recommendation for 2 troponins however patient would rather be discharged at this time. He states he is feeling much better. He does not have any symptoms. Return precautions provided. Patient agrees and understands this plan Patient will be discharged home Differential Diagnosis Differential Diagnoses: The differential diagnosis associated with the presentation includes CAD, tachycardia, cardiac arrhythmia, AFib, SVT Lab Data [facility] Lab Attestation statement: I reviewed the patient's lab results. 01/27/25 16:55 01/27/25 16:55 Labs: Lab Results 01/27/25 Range/Units 16:55 WBC 6.1 (4.8-10.8) X10*3/uL RBC 4.35 L (4.60-5.80) X10*6/uL Hgb 12.7 L (14.0-18.0) g/dl Hct 37.1 L (42.0-52.0) % MCV 85.3 (80.0-98.0) fL MCH 29.2 (27.0-33.0) pg MCHC 34.2 (31.0-36.0) g/dl RDW 13.2 (11.0-16.0) % Plt Count 174 (160-400) X10*3/uL MPV 9.9 (9.4-12.4) fL Immature Gran % (Auto) 0.3 (0.0-0.4) % Neut % (Auto) 59.6 (45-73) % Lymph % (Auto) 26.4 (20-40) % Pennington % (Auto) 7.2 (2-11) % Eos % (Auto) 5.4 H (0-4) % Baso % (Auto) 1.1 (0-2) % Lymph # (Auto) 1.6 (1.2-4.9) X10*3/uL [place]ton # (Auto) 0.4 (0.1-1.2) X10*3/uL Eos # (Auto) 0.3 (0.0-0.4) X10*3/uL Baso # (Auto) 0.1 (0.0-0.2) X10*3/uL Abs Immat Gran (auto) 0.02 (0.00-0.03) X10*3/uL Absolute Neuts (auto) 3.6 (2.0-8.3) x10*3/uL Absolute Nucleated RBC 0.000 (0.0-0.012) X10*3/uL Nucleated RBC % (auto) 0.0 (0.0-0.2) /100WBC PT 12.3 (10.9-12.4) SEC INR 1.1 (0.9-1.1) Sodium 139 (135-145) mmol/L Potassium 4.7 (3.3-5.1) mmol/L Chloride 108 (96-108) mmol/L Carbon Dioxide 27 (22-29) mmol/L Anion Gap 9 L (12-20) BUN 32 H (9-16) mg/dL Creatinine 1.87 H (0.5-1.4) mg/dL Estim Creat Clear Calc 46.9 Estimated GFR 36 Random Glucose 92 (60-115) mg/dL Calcium 9.0 (8.4-10.2) mg/dL Magnesium 1.9 (1.6-2.6) mg/dL Total Bilirubin 0.6 (0.0-1.0) mg/dL AST 30 (5-37) U/L ALT 36 (0-40) U/L Alkaline Phosphatase 41 (39-117) U/L Troponin I High Sens 6.7 (<3.5-35.0) ng/L Total Protein 6.7 (6.5-8.0) g/dL Albumin 4.1 (3.5-5.0) g/dL TSH 1.80 (0.32-4.0) uIU/mL Independent Interpretation I performed an independent interpretation of an: EKG Chronic Conditions Patient?s care impacted by: Hypertension CAD Discharge Plan Discharge Clinical Impression: Heart palpitations Patient Disposition: Home, Self-Care Instructions: Heart Palpitations (ED) Prescriptions: No Action valacyclovir 1 gram tablet 2,000 mg PO BID 1 Days Qty: 4 0RF ondansetron 4 mg tablet,disintegrating 4 mg PO Q8H PRN (Reason: nausea and vomiting) Qty: 10 0RF lisinopril 40 mg tablet 40 mg PO DAILY dorzolamide-timolol 22.3-6.8 mg/mL drops 1 drp ophthalmic (eye) BID latanoprost 0.005 % drops 1 drp ophthalmic (eye) DAILY rosuvastatin [Crestor] 40 mg tablet 40 mg PO DAILY aspirin [Adult Low Dose Aspirin] 81 mg tablet,delayed release (DR/EC) 81 mg PO DAILY amlodipine 5 mg tablet 5 mg PO DAILY metoprolol succinate 50 mg tablet extended release 24 hr 50 mg PO DAILY colchicine 0.6 mg tablet 0.6 mg PO BID Qty: 40 0RF Rx Instructions: Take 1 take 1 tablet once or twice a day until flare-up resolves prednisone 50 mg tablet 50 mg PO DAILY 6 Days Qty: 6 2RF Print Language: Persian
[2025-01-27 17:00] LABS: MANUAL DIFF FLAG NO
[2025-01-27 17:04] LABS: Hematocrit 37.1 % (42.0-52.0); Hemoglobin 12.7 g/dl (14.0-18.0); Imm Gran Abs Auto 0.02 X10*3/uL (0.00-0.03); Imm Gran Pct Auto 0.3 % (0.0-0.4); Lymphocytes Absolute Auto 1.6 X10*3/uL (1.2-4.9); Mean Corpuscular HGB Conc 34.2 g/dl (31.0-36.0); Mean Corpuscular Hemoglobin 29.2 pg (27.0-33.0); Mean Corpuscular Volume 85.3 fL (80.0-98.0); NRBC Abs Auto 0.000 X10*3/uL (0.0-0.012); NRBC Pct Auto 0.0 /100WBC (0.0-0.2); Platelet Count 174 X10*3/uL (160-400); Red Blood Count 4.35 X10*6/uL (4.60-5.80); White Blood Count 6.1 X10*3/uL (4.8-10.8)
[2025-01-27 17:20] LABS: INTERNATIONAL NORM RATIO 1.1 (0.9-1.1); Prothrombin Time 12.3 SEC (10.9-12.4)
[2025-01-27 17:26] LABS: Alanine Aminotransferase 36 U/L (0-40); Albumin Level 4.1 g/dL (3.5-5.0); Alkaline Phosphatase 41 U/L (39-117); Anion Gap 9 (12-20); Aspartate Amino Transferase 30 U/L (5-37); Blood Urea Nitrogen 32 mg/dL (9-16); Calcium 9.0 mg/dL (8.4-10.2); Carbon Dioxide 27 mmol/L (22-29); Chloride 108 mmol/L (96-108); Creatinine Clr Calc Pharmacy 46.9; Estimated Glomerular Filt Rate 36; Magnesium 1.9 mg/dL (1.6-2.6); Potassium 4.7 mmol/L (3.3-5.1); Sodium 139 mmol/L (135-145); Total Protein 6.7 g/dL (6.5-8.0); Troponin-I High Sensitivity 6.7 ng/L (<3.5-35.0)
[2025-01-27 17:57] VITALS: BP 185/84; PULSE 52; RESP 18; TEMP 36.4; O2SAT 98
--- OUTSIDE RECORDS SUMMARY | 2025-01-27 18:09 | XMS_ITS | Encounter Summary ---
Author Organization [facility] Address [address] [place] [address] Phone Care Team Providers Care Airplane Patroller Name Role Phone Tyler Adams DIESEL PILE DRIVER OPERATOR Primary Care Provider [phone] Encounter Details Date Type Department Care Team (Late st Contact Info) Description 01/15/2024 Documentation Only [facility] [address] [place] [address] Shanel Gross [address] [place] [address] Social History Tobacco Use Types [...] Care Team (Late st Contact Info) Description 05/20/2025 2:30 PM EST Office Visit [facility] [address] [place] [address] Jaspreet Nielsen MD [address] [place] [address] [place] [phone] documented as of this encounter Visit Diagnoses Not on filedocumented in this encounter Care Teams Airplane Patroller Relationship Specialty Start Date End Date Tyler Adams NP [address] [place] [address] PCP - General Nurse Practitioner 11/08/22 documented as of this encounter
--- OUTSIDE RECORDS SUMMARY | 2025-01-27 18:09 | XMS_ITS | Clinical Summary ---
Author Organization [facility] Address [address] [place] [address] Phone Care Team Providers Care Filler Shaker Name Role Phone Tyler Adams NP Primary Care Provider [phone] Allergies Active Allergy Reactions Criticality Noted Date [...] vascular disease Gout Essential (primary) hypertension Dyslipidemia Encounters Date Type Department Care Team Description 01/21/2025 Documentation Only [facility] [place], [address] [place] [address] Shanel Gross from Last 3 Months Immunizations Immunization Administration Dates Next Due Influenza [...] Visit [facility] [place], [address] [place] [address] Jaspreet Nielsen MD [address] [facility] [place] [phone] Health Maintenance Due Date Last Done Comments Pneumococcal Vaccine: 50+ Years (1 of 2 - PCV) 02/04/1972 Colorectal Cancer Screening: Annual FOBT 2002 Colorectal Cancer Screening: Colonoscopy 2002 Colorectal Cancer Screening: Sigmoidoscopy 2002 Influenza Vaccine (#1) 2025 2, 03/02/2019, 02/16/2018, Additional history exists Hepatitis B Vaccine Aged Out No longe r eligible based on patient's age to complete this topic [facility] Care Teams Filler Shaker Relationship Specialty Start Date End Date Tyler Adams NP [facility] [place] [address] PCP - General Nurse Practitioner 11/08/22
--- OUTSIDE RECORDS SUMMARY | 2025-01-27 18:09 | XMS_ITS | Encounter Summary ---
Author Organization [facility] Address [address] [place] [address] Phone Care Team Providers Care Elastic Assembler Name Role Phone Tyler Adams SECONDARY SPANISH TEACHER Primary Care Provider [phone] Encounter Details Date Type Department Care Team (Late st Contact Info) Description 01/15/2024 Documentation Only [facility] [address] [place] [address] Shanel Gross [address] [place] [address] Social History Tobacco Use Types [...] Visit [facility] [address] [place] [address] Jaspreet Nielsen MD [address] [place] [address] [place] [phone] documented as of this encounter Visit Diagnoses Not on filedocumented in this encounter Care Teams Elastic Assembler Relationship Specialty Start Date End Date Tyler Adams NP [address] [place] [address] PCP - General Nurse Practitioner 11/08/22 documented as of this encounter
--- OUTSIDE RECORDS SUMMARY | 2025-01-27 18:09 | XMS_ITS | Encounter Summary ---
Author Organization [facility] Address [address] [place] [address] Phone Care Team Providers Care Gas Engine Operator Name Role Phone Tyler Adams SITE LEAD Primary Care Provider Encounter Details Date Type Department Care Team (Late st Contact Info) Description 11/13/2022 Documentation Only [facility] [address] [place] [phone] Tyler Adams NP [facility] [place], [place] Social History Tobacco Use Types Packs/Day [...] Visit [facility] [address] [place] [phone] Jaspreet Nielsen MD [address] [place] [address] [place] [phone] documented as of this encounter Visit Diagnoses Not on filedocumented in this encounter Care Teams Gas Engine Operator Relationship Specialty Start Date End Date Tyler Adams NP [facility] [place], [place] PCP - General Nurse Practitioner 11/08/22 documented as of this encounter
--- OUTSIDE RECORDS SUMMARY | 2025-01-27 18:09 | XMS_ITS | Encounter Summary ---
Author Organization [facility] Address [address] [place] [address] Phone Care Team Providers Care Tax Services Specialist Name Role Phone Tyler Adams NAPPER TENDER Primary Care Provider [phone] Encounter Details Date Type Department Care Team (Late st Contact Info) Description 01/15/2024 Documentation Only [facility] [address] [place] [address] Shanel Gross [address] [place] [address] Social History Tobacco Use Types [...] [facility] [address] [place] [place] [address] Jaspreet Nielsen MD [address] [place] [address] [place] [phone] documented as of this encounter Visit Diagnoses Not on filedocumented in this encounter Care Teams Tax Services Specialist Relationship Specialty Start Date End Date Tyler Adams NP [address] [place] [address] PCP - General Nurse Practitioner 11/08/22 documented as of this encounter
--- OUTSIDE RECORDS SUMMARY | 2025-01-27 18:09 | XMS_ITS | Encounter Summary ---
Author Organization [facility] Address [address] [place] [address] Phone Care Team Providers Care Diesel Technology Instructor Name Role Phone Tyler Adams MANAGEMENT DEVELOPER Primary Care Provider [phone] Encounter Details Date Type Department Care Team (Late st Contact Info) Description 11/20/2022 Documentation Only [facility] [address] [place] [phone] Tyler Adams NP [facility] [place], [place] Social History Tobacco Use Types Packs/Day [...] [facility] [address] [place] [phone] Jaspreet Nielsen MD [address] [place] [address] [place] [phone] documented as of this encounter Visit Diagnoses Not on filedocumented in this encounter Care Teams Diesel Technology Instructor Relationship Specialty Start Date End Date Tyler Adams NP [facility] [place], [place] PCP - General Nurse Practitioner 11/08/22 documented as of this encounter
--- OUTSIDE RECORDS SUMMARY | 2025-01-27 18:09 | XMS_ITS | Encounter Summary ---
Author Organization [facility] Address [address] [place] [address] Phone Care Team Providers Care Youth Development Professional Name Role Phone Tyler Adams MANAGER VALIDATION Primary Care Provider [phone] Encounter Details Date Type Department Care Team (Late Contact Info) Description 01/21/2025 Documentation Only [facility] [address] [place] [address] Shanel Gross [address] [place] [address] Social History Tobacco Use Types Packs/Day Years Used Date Smoking Tobacco: Former Cigarettes Smokeless Tobacco: Never Sex and Gender Information Value Date Recorded Sex Assigned at Not on file Legal Sex Male 10:40 AM EDT Gender Identity Not on file Sexual Orientation Not on file documented as of this encounter Plan of Treatment Upcoming Encounters Date Type Department Care Team (Late Contact Info) Description 05/20/2025 2:30 PM EST Office Visit [facility] [address] [place] [address] Jaspreet Nielsen MD [address] [place] [address] [place] [address] documented as of this encounter Visit Diagnoses Not on filedocumented in this encounter Care Teams Youth Development Professional Relationship Specialty Start Date End Date Tyler Adams NP [facility] [place] [address] PCP - General Nurse Practitioner 11/08/22 documented as of this encounter
--- OUTSIDE RECORDS SUMMARY | 2025-01-27 18:09 | XMS_ITS | Clinical Summary ---
Author Organization [facility] Address [address] [address] Phone Care Team Providers Care Tactical Air Defense Controller Name Role Phone Tyler Adams NP Primary [...] what happened. Coronary artery disease invo lving citizen [place] coronary artery of citizen [place] heart without angina pectoris 10/09/2017 Overview (07/14/2018): [...] to do well and looking forward to halfway. No symptoms. Assessment & Plan (10/11/2017 12:24 [...] is in sinus rhythm. 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 Assessment & Plan (04/22/2019 1:19 PM EST): [...] Description 11/26/2024 9:20 AM EDT Office Visit [facility] [address] [facility] [address] Floor, [address] [place], [place] [phone] Geoffrey Gilbert MD Coronary artery disease involving citizen [place] coronary artery of citizen [place] heart without angina pectoris (Primary Dx); Essential [...] Description 06/01/2025 9:20 AM EST Office Visit [facility] [address] [place] [address] [address]rd Floor, [address] [place] [address] Geoffrey Gilbert MD [address] [facility], [address] [place] [address] [email or web address] Health Maintenance Due Date Last Done Comments [...] CANCER SCREENING 10/31/2023 FIT TEST 10/31/2023 10/30/2022 CREATININE LEVEL 11/25/2024 11/26/2023, , 10/13/2020 POTASSIUM LEVEL 11/25/2024 11/26/2023 Adult Td,Tdap Booster 12/04/2024 12/04/2014 INFLUENZA VACCINE (#1) 2024 , 01/20/2023, 01/20/2023, Additional history exists COVID-19 VACCINE ( season) 2025 2023, 03/05/2022, 02/02/2021, Additional history exists BLOOD PRESSURE 05/29/2025 11/26/2024 [...] EDT) SODIUM 139 133 - 146 mmol/L [facility] CHLORIDE 107 96 - 108 mmol/L [facility] POTASSIUM 5.3(H) 3.3 - 5.1 mmol/L [facility] CO2 24 21 - 35 mmol/L [facility] BUN 25(H) 6 - 19 mg/dL [facility] CREATININE 1.40 0.5 - 1.5 mg/dL [facility] GLUCOSE 105(H) 70 - 99 mg/dL [facility] CALCIUM 9.5 8.4 - 10.3 mg/dL [facility] EGFR 54(L) >59 mL/min/1.7 3m2 [facility] Comment:Estimated glomerular filtration rate calculated using the CKD-EPI refit equation. ANION GAP 13 10 - 20 mmol/L [facility] Blood 11/26/2023 11:3 7 AM EDT 11/26/2023 11:42 AM EDT us Geoffrey Gilbert MD LAB BLOOD ORDERABLES Final Re sult [facility] [address] [place] [address] from Last 3 Months or Most Recently Relevant to Health Maintenance Insurance MEDICARE PART A & B [facility] MEDICARE SUPPLEMENT MEDICARE PART A & B [facility] MEDICARE SUPPLEMENT MEDICARE PART A & B [facility] MEDICARE SUPPLEMENT MEDICARE PART A & B [employer] MEDICARE SUPPLEMENT MEDICARE PART A & B [employer] MEDICARE SUPPLEMENT MEDICARE PART A & B [employer] MEDICARE SUPPLEMENT MEDICARE PART A & B [facility] [employer] MEDICARE SUPPLEMENT MEDICARE PART A & B [facility] MEDICARE SUPPLEMENT MEDICARE PART A & B [facility] MEDICARE SUPPLEMENT Care Teams Tactical Air Defense Controller Relationship Specialty Start Date End Date Tyler Adams NP [address] [facility] [place] [address] PCP - General Family Medicine 10/21/18 Madison Clayton MD [address] [place] [address] Orthopedic Surgery 10/12/20 Additional Source Comments The information contained in this document represents components of the legal health record. It is not the complete legal health record.[facility]
--- OUTSIDE RECORDS SUMMARY | 2025-01-27 18:09 | XMS_ITS | Encounter Summary ---
Author Organization [facility] Address [address] [place] [address] Phone Care Team Providers Care Solar Electric Installer Name Role Phone Tyler Adams PIN WORKER Primary Care Provider [phone] Encounter Details Date Type Department Care Team (Late st Contact Info) Description 01/15/2024 Documentation Only [facility] [address] [address] Shanel Gross [address] [place] [address] Social History Tobacco Use Types [...] Visit [facility] [address] [place] [address] Jaspreet Nielsen MD [address] [place] [address] [place] [phone] documented as of this encounter Visit Diagnoses Not on filedocumented in this encounter Care Teams Solar Electric Installer Relationship Specialty Start Date End Date Tyler Adams NP [address] [place] [address] PCP - General Nurse Practitioner 11/08/22 documented as of this encounter
--- OUTSIDE RECORDS SUMMARY | 2025-01-27 18:10 | XMS_ITS | Patient Health Record ---
Author Organization [facility] Address [address] [place] [address] Care Team Providers Care Calculus Professor Name Role Phone DUSTY DAILY Primary Care Provider Lewis Newman Jr Unavailable [phone] Allergies Allergen (clinical drug ingredient) Drug/Non Drug [...] Problem Status W/U Status Risk Notes Problem 317725535 Colon cancer screening (Z12.11) Active confirmed Problem 28682437 Rectal bleeding (K62.5) Active confirmed Problem 720037742 Current use of aspirin (Z79.82) Active confirmed Encounters Encounter Location Date Provider Diagnosis [facility] [address] [facility] [address] [place] [address] 01/20/2025 Lewis Pozo Jr Plan Of Treatment Future Test Test Name Order Date COLONOSCOPY 07/03/2017 COLONOSCOPY 11/12/2022 Insurance Providers Payer Name Payer Address Payer Phone Subscriber Number Group Number Insured Name Patient Relationship to Insured Coverage Start Date Coverage End Date MEDICARE OF [place] [address] [place] [address] [phone] [id number] DUSTY NESBITT Self - patient is the insured [facility] INDEMNITY [address] [place] [address] [id number] DUSTY NESBITT Self - patient is the insured Medical (General) History Medical History History ICD Code coronary artery disease with history of [place] and stent placement 2006, second stent 2007 hypertension hyperlipidemia Colon polyps, colonoscopy , five-year followup due to prior history of adenomas. Surgical History Surgery Date(Month/Year) stent placement 2006, 2007
== END 2025-01-27 18:35 | disposition home or self-care (01) ==
PROVIDERS: Registered Nurse Emergency; Emergency Provider Student in an Organized Health Care Education/Training Program; PCP Nurse Practitioner Family
DX: R00.2 Palpitations (principal); I49.9 Cardiac arrhythmia, unspecified; Z79.899 Other long term (current) drug therapy; Z87.891 Personal history of nicotine dependence
CPT/HCPCS: 36415; 80053; 83735; 84443; 84484; 85025; 85610; 93005; 99283; 99285

== ENCOUNTER → 2025-01-27 16:28 | Outpatient (BNV) | payer MEDICARE, OTHER, SELFPAY | PROVIDERS: Emergency Provider Student in an Organized Health Care Education/Training Program; PCP Nurse Practitioner Family; Visit Provider Internal Medicine Cardiovascular Disease | DX: I49.3 Ventricular premature depolarization (principal) | CPT/HCPCS: 93010 ==

== ENCOUNTER 2025-02-26 10:12 | Outpatient (REF) | payer MEDICARE, OTHER, SELFPAY ==
--- OUTSIDE RECORDS SUMMARY | 2025-02-26 11:37 | XMS_ITS | Encounter Summary ---
Author Organization [facility] Address [address] [place] [address] Phone Care Team Providers Care Automatic Wheel Line Operator Name Role Phone Tyler Adams PHYSICAL INSTRUCTOR Primary Care Provider [phone] Encounter Details Date Type Department Care Team (Late Contact Info) Description 01/21/2025 Documentation Only [facility] [address] [place] [address] Shanel Gross [address] [place] [address] Social History Tobacco Use [...] [facility] [address] [place] [address] Jaspreet Nielsen MD [address] [place] [address] [place] [address] documented as of this encounter Visit Diagnoses Not on filedocumented in this encounter Care Teams Automatic Wheel Line Operator Relationship Specialty Start Date End Date Tyler Adams NP [facility] [place] [address] PCP - General Nurse Practitioner 11/08/22 documented as of this encounter
--- OUTSIDE RECORDS SUMMARY | 2025-02-26 11:37 | XMS_ITS | Encounter Summary ---
Author Organization [facility] Address [address] [place] [address] Phone Care Team Providers Care Activity Therapist Name Role Phone Tyler Adams RADIO BOARD OPERATOR ANNOUNCER Primary Care Provider [phone] Encounter Details Date Type Department Care Team (Late st Contact Info) Description 11/13/2022 Documentation Only [facility] [address] [place] [phone] Tyler Adams NP [facility] [place], [place] Social History Tobacco Use Types Packs/Day [...] Visit [facility] [address] [place] [address] Jaspreet Nielsen MD [address] [place] [address] [place] [phone] documented as of this encounter Visit Diagnoses Not on filedocumented in this encounter Care Teams Activity Therapist Relationship Specialty Start Date End Date Tyler Adams NP [facility] [place], [place] PCP - General Nurse Practitioner 11/08/22 documented as of this encounter
--- OUTSIDE RECORDS SUMMARY | 2025-02-26 11:37 | XMS_ITS | Encounter Summary ---
Author Organization [facility] Address [address] [place] [address] Phone Care Team Providers Care Front Office Representative Name Role Phone Tyler Adams LIGHT CLEANER Primary Care Provider [phone] Encounter Details Date Type Department Care Team (Late st Contact Info) Description 01/15/2024 Documentation Only [facility] [address] [place] [address] Shanel Gross [address] [place] [address] Social History Tobacco Use Types [...] [facility] [address] [place] [address] Jaspreet Nielsen MD [address] [place] [address] [place] [phone] documented as of this encounter Visit Diagnoses Not on filedocumented in this encounter Care Teams Front Office Representative Relationship Specialty Start Date End Date Tyler Adams NP [address] [place] [address] PCP - General Nurse Practitioner 11/08/22 documented as of this encounter
--- OUTSIDE RECORDS SUMMARY | 2025-02-26 11:37 | XMS_ITS | Clinical Summary ---
Author Organization [facility] Address [address] [place] [address] Phone Care Team Providers Care Legal Instruments Examiner Name Role Phone Tyler Adams NP Primary Care Provider [phone] Allergies Active Allergy Reactions Criticality Noted Date [...] Only [facility] [place], [address] [place] [address] Shanel Gross from Last 3 Months [...] Visit [facility] [place], [address] [place] [address] Jaspreet Nielsen MD [address] [place] [phone] Health Maintenance Due Date Last Done Comments Pneumococcal Vaccine: 50+ Years (1 of 2 - PCV) 02/04/1972 Colorectal Cancer Screening: Annual FOBT 2002 Colorectal Cancer Screening: Colonoscopy 2002 Colorectal Cancer Screening: Sigmoidoscopy 2002 Influenza Vaccine (#1) 2025 2, 03/02/2019, 02/16/2018, Additional history exists Hepatitis B Vaccine Aged Out No longe r eligible based on patient's age to complete this topic Insurance Medicare [facility] Care Teams Legal Instruments Examiner Relationship Specialty Start Date End Date Tyler Adams [place] [address] PCP - General Nurse Practitioner 11/08/22
--- OUTSIDE RECORDS SUMMARY | 2025-02-26 11:37 | XMS_ITS | Encounter Summary ---
Author Organization [facility] Address [address] [place] [address] Phone Care Team Providers Care Automobile Body Repair Supervisor Name Role Phone Tyler Adams BOX OFFICE CLERK Primary Care Provider [phone] Encounter Details Date Type Department Care Team (Late st Contact Info) Description 01/15/2024 Documentation Only [facility] [address] [place] [address] Shanel Gross [address] [place] [address] Social History Tobacco Use Types [...] Visit [facility] [address] [place] [address] Jaspreet Nielsen MD [address] [place] [address] [place] [phone] documented as of this encounter Visit Diagnoses Not on filedocumented in this encounter Care Teams Automobile Body Repair Supervisor Relationship Specialty Start Date End Date Tyler Adams NP [address] [place] [address] PCP - General Nurse Practitioner 11/08/22 documented as of this encounter
--- OUTSIDE RECORDS SUMMARY | 2025-02-26 11:37 | XMS_ITS | Encounter Summary ---
Author Organization [facility] Address [address] [place] [address] Phone Care Team Providers Care Watch Band Assembler Name Role Phone Tyler Adams PEDIATRIC DERMATOLOGIST Primary Care Provider [phone] Encounter Details Date Type Department Care Team (Late st Contact Info) Description 01/15/2024 Documentation Only [facility] [address] [place] [address] Shanel Gross [address] [place] [address] Social History Tobacco Use Types [...] [facility] [address] [place] [address] Jaspreet Nielsen MD [address] [place] [address] [place] [address] documented as of this encounter Visit Diagnoses Not on filedocumented in this encounter Care Teams Watch Band Assembler Relationship Specialty Start Date End Date Tyler Adams NP [address] [place] [address] PCP - General Nurse Practitioner 11/08/22 documented as of this encounter
--- OUTSIDE RECORDS SUMMARY | 2025-02-26 11:37 | XMS_ITS | Clinical Summary ---
Author Organization [facility] Address [address] [address] Phone Care Team Providers Care Winding Inspector Name Role Phone Tyler Adams NP Primary [...] what happened. Coronary artery disease invo lving [place] coronary artery of [place] heart without angina pectoris 10/09/2017 Overview (07/14/2018): [...] to do well and [facility] No symptoms. Assessment & Plan (10/11/2017 12:24 [...] is in sinus rhythm. 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 (04/22/2019 1:19 PM EST): [...] Description 11/26/2024 9:20 AM EDT Office Visit [facility] [address] [facility] 3rd Floor, [address] [place], [place] [phone] Geoffrey Gilbert MD Coronary artery disease involving [place] coronary artery of [place] heart without angina pectoris (Primary Dx); Essential [...] Description 06/01/2025 9:20 AM EST Office Visit [facility] [address] [place] [address] 3rd Floor, [address] [place] [address] Geoffrey Gilbert MD [address] [place] [address], [address] [address] [email or web address] Health Maintenance Due Date Last Done Comments DEPRESSION SCREENING 1965 SMOKING Hx and SMOKELESS TOBACCO SCREENING 1966 HEPATITIS C SCREENING 1971 COLOGUARD 1998 COLONOSCOPY 1998 FOBT 1998 SIGMOIDOSCOPY 1998 VIRTUAL COLONOSCOPY 1998 PNEUMOCOCCAL VACCINES (50+ years) (1 of 1 - PCV) 2003 ABDOMINAL AORTIC ANEURYSM (AAA) SCREENING 2018 ZOSTER VACCINES (2 of 2) 01/06/2019 11/11/2018 COLORECTAL CANCER SCREENING 10/31/2023 FIT TEST 10/31/2023 10/30/2022 CREATININE LEVEL 11/25/2024 11/26/2023, , 10/13/2020 POTASSIUM LEVEL 11/25/2024 11/26/2023 Adult Td,Tdap Booster 12/04/2024 12/04/2014 INFLUENZA VACCINE (#1) 2024 , 01/20/2023, 01/20/2023, Additional history exists COVID-19 VACCINE ( season) 2025 2023, 03/05/2022, 02/02/2021, Additional history exists BLOOD PRESSURE 05/29/2025 11/26/2024 RSV VACCINE (1 - 1-dose 75+ series) 02/04/2028 HEPATITIS A VACCINES Aged Out No long [...] EDT) SODIUM 139 133 - 146 mmol/L [facility] CHLORIDE 107 96 - 108 mmol/L [facility] POTASSIUM 5.3(H) 3.3 - 5.1 mmol/L [facility] CO2 24 21 - 35 mmol/L [facility] BUN 25(H) 6 - 19 mg/dL [facility] CREATININE 1.40 0.5 - 1.5 mg/dL [facility] GLUCOSE 105(H) 70 - 99 mg/dL [facility] CALCIUM 9.5 8.4 - 10.3 mg/dL [facility] EGFR 54(L) >59 mL/min/1.7 3m2 [facility] Comment:Estimated glomerular filtration rate calculated using the CKD-EPI refit equation. ANION GAP 13 10 - 20 mmol/L [facility] Blood 11/26/2023 11:3 7 AM EDT 11/26/2023 11:42 AM EDT us Geoffrey Gilbert MD LAB BLOOD ORDERABLES Final Re sult [facility] [address] [place] [address] from Last 3 Months or Most Recently Relevant to Health Maintenance Insurance MEDICARE PART A & B [facility] MEDICARE SUPPLEMENT MEDICARE PART A & B [facility] [employer] MEDICARE SUPPLEMENT MEDICARE PART A & B [facility] [employer] MEDICARE SUPPLEMENT MEDICARE PART A & B [employer] MEDICARE SUPPLEMENT MEDICARE PART A & B [employer] MEDICARE SUPPLEMENT MEDICARE PART A & B [employer] MEDICARE SUPPLEMENT MEDICARE PART A & B [employer] MEDICARE SUPPLEMENT MEDICARE PART A & B [facility] MEDICARE SUPPLEMENT MEDICARE PART A & B [facility] [employer] MEDICARE SUPPLEMENT Care Teams Winding Inspector Relationship Specialty Start Date End Date Tyler Adams NP [facility] [place] [address] PCP - General Family Medicine 10/21/18 Madison Clayton MD [address] [place] [address] Orthopedic Surgery 10/12/20 Additional Source Comments The information contained in this document represents components of the legal health record. It is not the complete legal health record.[facility]
--- OUTSIDE RECORDS SUMMARY | 2025-02-26 11:37 | XMS_ITS | Patient Health Record ---
Author Organization [facility] Address [address] [place] [address] Care Team Providers Care Store Stock Associate Name Role Phone DUSTY DAILY Primary Care [...] 25 MG 1 suppository Rectal Once a day; Duration: 14 day(s) 11/12/2022 Active amLODIPine Besylate 10 MG 1 tablet Orall y Once a day; Duration: 30 day(s) Active Lisinopril 5 MG 1 [...] Problem Status W/U Status Risk Notes Problem Colon cancer screening (232906433) Colon cancer screening (Z12.11) Active confirmed Problem Rectal bleeding (72090628) Rectal bleeding (K62.5) Active confirmed Problem Long-term current use of antiplatelet drug (903846053305898) Current use of aspirin (Z79.82) Active confirmed Encounters Encounter Location Date Provider Diagnosis [facility] [address] [place] [address] 01/20/2025 Lewis Pozo Jr Plan Of Treatment Future Test Test Name Order Date COLONOSCOPY 07/03/2017 COLONOSCOPY 11/12/2022 Insurance Providers Payer Name Payer Address Payer Phone Subscriber Number Group Number Insured Name Patient Relationship to Insured Coverage Start Date Coverage End Date MEDICARE OF [place] [address] [place] [address] [id number] DUSTY NESBITT Self - patient is the insured [facility] [employer] [address] [place] [address] [id number] DUSTY NESBITT Self - patient is the insured Medical (General) History Medical History History ICD Code coronary artery disease with history of [place] and stent placement 2006, second stent 2007 hypertension hyperlipidemia Colon polyps, colonoscopy , five-year followup due to prior history of adenomas. Surgical History Surgery Date(Month/Year) stent placement 2006, 2007
--- OUTSIDE RECORDS SUMMARY | 2025-02-26 11:37 | XMS_ITS | Encounter Summary ---
Author Organization [facility] Address [address] [place] [address] Phone Care Team Providers Care Bicycle Repairer Name Role Phone Tyler Adams SANITARY [place] MACHINE TENDER Primary Care Provider [phone] Encounter Details Date Type Department Care Team (Late st Contact Info) Description 01/15/2024 Documentation Only [facility] [address] [place] [address] Shanel Gross [address] [place] [address] Social History Tobacco Use Types [...] Visit [facility] [address] [place] [address] Jaspreet Nielsen MD [address] [place] [address] [place] [address] documented as of this encounter Visit Diagnoses Not on filedocumented in this encounter Care Teams Bicycle Repairer Relationship Specialty Start Date End Date Tyler Adams NP [address] [place] [address] PCP - General Nurse Practitioner 11/08/22 documented as of this encounter
--- OUTSIDE RECORDS SUMMARY | 2025-02-26 11:37 | XMS_ITS | Encounter Summary ---
Author Organization [facility] Address [address] [place] [address] Phone Care Team Providers Care Firing Pin Gauger Name Role Phone Tyler Adams DEPUTY GRAND JURY Primary Care Provider [phone] Encounter Details Date Type Department Care Team (Late st Contact Info) Description 11/20/2022 Documentation Only [facility] [address] [place] [phone] Tyler Adams NP [facility] [place], [place] Social History Tobacco Use Types Packs/Day [...] Visit [facility] [address] [place] [address] Jaspreet Nielsen MD [address] [place] [address] [place] [address] documented as of this encounter Visit Diagnoses Not on filedocumented in this encounter Care Teams Firing Pin Gauger Relationship Specialty Start Date End Date Tyler Adams NP [facility] [place], [place] PCP - General Nurse Practitioner 11/08/22 documented as of this encounter
[2025-02-26 13:20] LABS: MANUAL DIFF FLAG NO
[2025-02-26 13:32] LABS: Hematocrit 41.9 % (42.0-52.0); Hemoglobin 13.6 g/dl (14.0-18.0); Imm Gran Abs Auto 0.03 X10*3/uL (0.00-0.03); Imm Gran Pct Auto 0.5 % (0.0-0.4); Lymphocytes Absolute Auto 1.6 X10*3/uL (1.2-4.9); Mean Corpuscular HGB Conc 32.5 g/dl (31.0-36.0); Mean Corpuscular Hemoglobin 28.3 pg (27.0-33.0); Mean Corpuscular Volume 87.1 fL (80.0-98.0); NRBC Abs Auto 0.000 X10*3/uL (0.0-0.012); NRBC Pct Auto 0.0 /100WBC (0.0-0.2); Platelet Count 187 X10*3/uL (160-400); Red Blood Count 4.81 X10*6/uL (4.60-5.80); White Blood Count 6.4 X10*3/uL (4.8-10.8)
[2025-02-26 13:47] LABS: Appearance Urine Clear; Glucose Urine UA Negative (Negative); PH 6.0 (5.0-9.0); Specific Gravity - Urine 1.025 (1.005-1.025); UMIC TRIGGER UACC YES
[2025-02-26 14:17] LABS: Alanine Aminotransferase 25 U/L (0-40); Albumin Level 4.2 g/dL (3.5-5.0); Alkaline Phosphatase 36 U/L (39-117); Anion Gap 10 (12-20); Aspartate Amino Transferase 23 U/L (5-37); Blood Urea Nitrogen 29 mg/dL (9-16); Calcium 9.3 mg/dL (8.4-10.2); Carbon Dioxide 26 mmol/L (22-29); Chloride 111 mmol/L (96-108); Cholesterol 116 mg/dL (<200); Estimated Glomerular Filt Rate 39; HDL Cholesterol 35 mg/dL (>40); Iron 84 mcg/dL (45-160); Percent Iron Saturation 30 % (15-50); Potassium 4.5 mmol/L (3.3-5.1); Sodium 142 mmol/L (135-145); Total Iron Binding Capacity 277 mcg/dL (228-428); Total Protein 6.8 g/dL (6.5-8.0); Triglycerides 88 mg/dL (<150); Unsaturated Iron Binding 193 ug/dL
[2025-02-26 15:50] LABS: Uric Acid 9.6 mg/dL (3.4-7.0)
== END 2025-02-26 10:13 | disposition home or self-care (01) ==
LOC: HO.HMGCLDS 10:12
PROVIDERS: Absent Provider Internal Medicine; PCP Nurse Practitioner Family; Visit Provider Nurse Practitioner Family
DX: I12.9 Hypertensive chronic kidney disease with stage 1 through stage 4 chronic kidney disease, or unspecified chronic kidney disease (principal); N18.30 Chronic kidney disease, stage 3 unspecified; M10.9 Gout, unspecified
CPT/HCPCS: 36415; 80053; 80061; 81001; 83540; 84443; 84550; 85025

== ENCOUNTER 2025-04-09 07:07 | Outpatient (REF) | payer MEDICARE, OTHER, SELFPAY ==
--- NOTE | ~2025-04-09 | CT_ITS ---
CLINICAL HISTORY: F17.200 - Nicotine dependence, unspecified, uncomplicated CT chest without contrast Comparison: None provided Findings: The heart is normal size. Moderate Atherosclerosis calcification of the coronary artery. No enlarged mediastinal lymph node. Mild emphysema. 2 mm nodule of the left upper lobe series 5, image 67. 5 mm subpleural nodule of the right middle lobe image 79. The upper abdomen is unremarkable. No acute fractures. IMPRESSION: There are small pulmonary nodules. CT chest follow-up in 1 year as indicated. This document has been electronically signed by: David Rowe MD on 04/09/2025 15:32:27
--- OUTSIDE RECORDS SUMMARY | 2025-04-09 07:10 | XMS_ITS | Encounter Summary ---
Author Organization [facility] Address [address] [place] [address] Phone Care Team Providers Care Project Manager Senior Name Role Phone Tyler Adams MOUNTER SMOKING PIPE Primary Care Provider [phone] Encounter Details Date Type Department Care Team (Late st Contact Info) Description 01/15/2024 Documentation Only [facility] [address] [place] [address] Shanel Gross [address] [place] [address] Social History Tobacco Use Types [...] Visit [facility] [address] [place] [address] Jaspreet Nielsen MD [address] [place] [address] [place] [address] documented as of this encounter Visit Diagnoses Not on filedocumented in this encounter Care Teams Project Manager Senior Relationship Specialty Start Date End Date Tyler Adams NP [address] [place] [address] PCP - General Nurse Practitioner 11/08/22 documented as of this encounter
--- OUTSIDE RECORDS SUMMARY | 2025-04-09 07:10 | XMS_ITS | Encounter Summary ---
Author Organization [facility] Address [address] [place] [address] Phone Care Team Providers Care Hand Umbrella Tipper Name Role Phone Tyler Adams TREE CUTTER Primary Care Provider [phone] Encounter Details Date Type Department Care Team (Late st Contact Info) Description 11/20/2022 Documentation Only [facility] [address] [place] [address] Tyler Adams NP [address] [place] [address] Social History Tobacco Use Types Packs/Day Years Used Date Smoking Tobacco: Never Assessed Sex and Gender Information Value Date Recorded Sex Assigned at Not on file Legal Sex Male 10:40 AM EDT Gender Identity Not on file Sexual Orientation Not on file documented as of this encounter Functional Status documented as of this encounter Plan of Treatment Upcoming Encounters Date Type Department Care Team (Late st Contact Info) Description 05/20/2025 2:30 PM EST Office Visit [facility] [address] [place] [address] Jaspreet Nielsen MD [address] [place] [address] [place] [address] documented as of this encounter Visit Diagnoses Not on filedocumented in this encounter Care Teams Hand Umbrella Tipper Relationship Specialty Start Date End Date Tyler Adams NP [facility] [place], [place] PCP - General Nurse Practitioner 11/08/22 documented as of this encounter
--- OUTSIDE RECORDS SUMMARY | 2025-04-09 07:10 | XMS_ITS | Patient Health Record ---
Author Organization [facility] Address [address] [place] [address] Care Team Providers Care Belt Conveyor Drier Name Role Phone DUSTY DAILY Primary Care Provider Lewis Newman Jr Unavailable Allergies Allergen (clinical drug ingredient) Drug/Non Drug Allergy documented on EMR Reaction Allergy Type Onset Date Status Sulfa Unknown Drug Allergy Active Reason For Referral No Information Medications Medication SIG (Take, Route, Frequency, Duration) Notes Start Date End Date Status Azopt 1 % Suspension 1 drop into affecte d eye Ophthalmic twice a day Active Timolol Maleate 0.5 % (DAILY) Solution 1 drop into affected eye Ophthalmic Once a day Active Atorvastatin Calcium 80 MG Tablet 1 tablet Orally Once a day Active Aspir-81 81 MG Tablet Delayed Release 1 tablet Orally Once a day Active Travatan Active Anusol-HC 25 MG Suppository 1 suppositor y Rectal Once a day; Duration: 14 day(s) 11/12/2022 Active amLODIPine Besylate 10 MG Tablet 1 tablet Orally Once a day; Duration: 30 day(s) Active Lisinopril 5 MG Tablet 1 tablet Orally O nce a day Active Metoprolol Succinate ER 25 MG Tablet Extended Release 24 Hour 1 tablet Orally Once a day Active Immunizations Vaccine Route Administration Date Status Comme nts Influenza Unknown 02/20/2022 Administered Social History Tobacco Use: Social History Observation Description Date Details (start date - stop date) Former Smoker NA - NA Social History Drugs/Alcohol: Social Info Question Answer Notes Alcohol Screen Did you have a drink containing alcohol in the past year? Yes How often did you have a drink containing alcohol in the past year? 2 to 4 times a month (2 points) How often did you have 6 or more drinks on one occasion in the past year? Never (0 point) Points 2 Interpretation Negative Tobacco Use: Social Info Question Answer Notes Tobacco Use/Smoking Patient is a former smoker How long has it been since you last smoked? 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 Problems Problem Type SNOMED Code ICD Code Onset Dates Problem Status W/U Status Risk Notes Problem Colon cancer screening (039608159) Colon cancer screening (Z12.11) Active confirmed Problem Rectal bleeding (43950243) Rectal bleeding (K62.5) Active confirmed Problem Long-term current use of antiplatelet drug (226504226842694) Current use of aspirin (Z79.82) Active confirmed Encounters Encounter Location Date Provider Diagnosis [facility] [address] [place] [address] 01/20/2025 Lewis Pozo Jr Plan Of Treatment Future Test Test Name Order Date COLONOSCOPY 07/03/2017 COLONOSCOPY 11/12/2022 Insurance Providers Payer Name Payer Address Payer Phone Subscriber Number Group Number Insured Name Patient Relationship to Insured Coverage Start Date Coverage End Date MEDICARE OF [place] [address] [place] [address] [id number] DUSTY NESBITT Self - patient is the insured [facility] [facility] [employer] [address] [place] [address] [id number] LAZ DUSTY Self - patient is the insured Medical (General) History Medical History History ICD Code coronary artery disease with history of CA and stent placement 2006, second stent 2007 hypertension hyperlipidemia Colon polyps, colonoscopy , five-year followup due to prior history of adenomas. Surgical History Surgery Date(Month/Year) stent placement 2006, 2007
--- OUTSIDE RECORDS SUMMARY | 2025-04-09 07:10 | XMS_ITS | Clinical Summary ---
Author Organization [facility] Address [address] [place] [address] Phone Care Team Providers Care Manufacturing Millwright Name Role Phone Tyler Adams NP Primary [...] for pain (specific location in comments). Active dorzolamide-timoloL (COSOPT) 22.3-6.8 mg/mL ophthalmic solution [...] DAILY 90 tablet 3 07/21/19 25 Active metoprolol succinate (TOPROL-XL) 50 MG 24 hr tabletIndications:Medica tion refill Take 1 tablet (50 mg total) by mouth daily. 90 tablet 3 03/08/20 25 Active Active Problems Problem Noted Date [...] what happened. Coronary artery disease invo lving prairie band coronary artery of prairie band heart without angina pectoris 10/09/2017 Overview (07/14/2018): [...] is in sinus rhythm. 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 (04/22/2019 1:19 PM EST): [...] Encounters Date Type Department Care Team Description 03/08/2025 Refill [facility] [address], [address] [place] [address] Geoffrey Gilbert MD Medication Refill from Last 3 Months Immunizations Immunization Administration [...] Description 06/01/2025 9:20 AM EST Office Visit [facility] [address] [place] [address] [address]rd Floor, [address] [place] [address] Geoffrey Gilbert MD [address] [facility], [address] [place] [address] Health Maintenance Due Date Last Done Comments [...] Booster 12/04/2024 12/04/2014 INFLUENZA VACCINE (#1) 2024 3, 01/20/2023, 01/20/2023, Additional history exists COVID-19 VACCINE [...] Date/Time Associated Diagnosis Comments BASIC METABOLIC PANEL (BMP) Routine 11/26/2023 11:37 AM EDT Essential hypertension from Last 3 Months or Most Recently Relevant to Health Maintenance Results * (ABNORMAL) Basic metabolic panel (11/26/2023 11:37 AM EDT) SODIUM 139 133 - 146 mmol/L [facility] CHLORIDE 107 96 - 108 mmol/L [facility] POTASSIUM 5.3(H) 3.3 - 5.1 mmol/L [facility] CO2 24 21 - 35 mmol/L [facility] BUN 25(H) 6 - 19 mg/dL [facility] CREATININE 1.40 0.5 - 1.5 mg/dL [facility] GLUCOSE 105(H) 70 - 99 mg/dL [facility] CALCIUM 9.5 8.4 - 10.3 mg/dL [facility] EGFR 54(L) >59 mL/min/1.7 3m2 [facility] Comment:Estimated glomerular filtration rate calculated using the CKD-EPI refit equation. ANION GAP 13 10 - 20 mmol/L [facility] Blood 11/26/2023 11:3 7 AM EDT 11/26/2023 11:42 AM EDT us Geoffrey A Vladimir MD LAB BLOOD BKR ORDERABLES Omayra yasmin Result [facility] [address] [place], [place] [id number] from Last 3 Months or Most Recently Relevant to Health Maintenance Insurance MEDICARE PART A & B [facility] MEDICARE SUPPLEMENT [facility]IC[facility] & [facility] MEDICARE SUPPLEMENT MEDICARE PART A & B [facility] MEDICARE SUPPLEMENT MEDICARE PART A & B [employer] MEDICARE SUPPLEMENT MEDICARE PART A & [facility] MEDICARE SUPPLEMENT MEDICARE PART A & B [employer] MEDICARE SUPPLEMENT MEDICARE PART A & B [employer] MEDICARE SUPPLEMENT MEDICARE PART A & B [facility] MEDICARE SUPPLEMENT MEDICARE PART A & B [facility] MEDICARE SUPPLEMENT Care Teams Manufacturing Millwright Relationship Specialty Start Date End Date Tyler Adams NP [address] [place] [address] PCP - General Family Medicine 10/21/18 Madison Clayton MD [facility] [place] [address] Orthopedic Surgery 10/12/20 Additional Source Comments The information contained in this document represents components of the legal health record. It is not the complete legal health record.[facility]
--- OUTSIDE RECORDS SUMMARY | 2025-04-09 07:10 | XMS_ITS | Encounter Summary ---
Author Organization [facility] Address [address] [place] [address] Phone Care Team Providers Care Chief Arson Division Name Role Phone Tyler Adams RELAY DISPATCHER Primary Care Provider Encounter Details Date Type Department Care Team (Late st Contact Info) Description 01/15/2024 Documentation Only [facility] [address] [place] [address] Shanel Gross [address] [place] [address] Social History Tobacco Use Types [...] Visit [facility] [address] [place] [address] Jaspreet Nielsen MD [address] [place] [address] [place] [phone] documented as of this encounter Visit Diagnoses Not on filedocumented in this encounter Care Teams Chief Arson Division Relationship Specialty Start Date End Date Tyler Adams NP [address] [place] [address] PCP - General Nurse Practitioner 11/08/22 documented as of this encounter
--- OUTSIDE RECORDS SUMMARY | 2025-04-09 07:10 | XMS_ITS | Encounter Summary ---
Author Organization [facility] Address [address] [place] [address] Phone Care Team Providers Care Carriage Rider Name Role Phone Tyler Adams ROBOT OPERATOR Primary Care Provider [phone] Encounter Details Date Type Department Care Team (Late st Contact Info) Description 11/13/2022 Documentation Only [facility] [address] [place] [phone] Tyler Adams NP [facility] [place], [place] Social History Tobacco Use Types Packs/Day [...] Visit [facility] [address] [place] [phone] Jaspreet Nielsen MD [address] [place] [address] [place] [phone] documented as of this encounter Visit Diagnoses Not on filedocumented in this encounter Care Teams Carriage Rider Relationship Specialty Start Date End Date Tyler Adams NP [facility] [place], [place] PCP - General Nurse Practitioner 11/08/22 documented as of this encounter
--- OUTSIDE RECORDS SUMMARY | 2025-04-09 07:10 | XMS_ITS | Encounter Summary ---
Author Organization [facility] Address [address] [place] [address] Phone Care Team Providers Care Workers Compensation Claims Examiner Name Role Phone Tyler Adams MORALE OFFICER Primary Care Provider [phone] Encounter Details Date Type Department Care Team (Late st Contact Info) Description 01/15/2024 Documentation Only [facility] [address] [place] [address] Shanel Gross [address] [place] [address] Social History Tobacco Use Types [...] Visit [facility] [address] [place] [address] Jaspreet Nielsen MD [address] [place] [address] [place] [phone] documented as of this encounter Visit Diagnoses Not on filedocumented in this encounter Care Teams Workers Compensation Claims Examiner Relationship Specialty Start Date End Date Tyler Adams NP [address] [place] [address] PCP - General Nurse Practitioner 11/08/22 documented as of this encounter
--- OUTSIDE RECORDS SUMMARY | 2025-04-09 07:10 | XMS_ITS | Encounter Summary ---
Author Organization [facility] Address [address] [place] [address] Phone Care Team Providers Care Dust Collector Attendant Name Role Phone Tyler Adams GOLF CADDY Primary Care Provider [phone] Encounter Details Date Type Department Care Team (Late st Contact Info) Description 01/15/2024 Documentation Only [facility] [address] [place] [address] Shanel Gross [address] [facility] [place] [address] Social History Tobacco Use Types [...] Visit [facility] [address] [place] [address] Jaspreet Nielsen MD [address] [place] [address] [place] [phone] documented as of this encounter Visit Diagnoses Not on filedocumented in this encounter Care Teams Dust Collector Attendant Relationship Specialty Start Date End Date Tyler Adams NP [address] [place] [address] PCP - General Nurse Practitioner 11/08/22 documented as of this encounter
--- OUTSIDE RECORDS SUMMARY | 2025-04-09 07:10 | XMS_ITS | Encounter Summary ---
Author Organization [facility] Address [address] [place] [address] Phone Care Team Providers Care Cleaner And Preparer Name Role Phone Tyler Adams RISK MODELER Primary Care Provider [phone] Encounter Details Date Type Department Care Team (Late Contact Info) Description 03/15/2025 Documentation Only [facility] [address] [place] [address] Shanel Gross [address] [place] [address] Social History Tobacco Use Types [...] Visit [facility] [address] [place] [address] Jaspreet Nielsen MD [address] [place] [address] [place] [address] documented as of this encounter Visit Diagnoses Not on filedocumented in this encounter Care Teams Cleaner And Preparer Relationship Specialty Start Date End Date Tyler Adams NP [address] [place] [address] PCP - General Nurse Practitioner 11/08/22 documented as of this encounter
--- OUTSIDE RECORDS SUMMARY | 2025-04-09 07:10 | XMS_ITS | Encounter Summary ---
Author Organization [facility] Address [address] [place] [address] Phone Care Team Providers Care Emc Storage Architect Name Role Phone Tyler Adams CLOTH TRIMMER HAND Primary Care Provider [phone] Encounter Details Date Type Department Care Team (Late Contact Info) Description 01/21/2025 Documentation Only [facility] [address] [place] [address] Shanel Gross [address] [place] [address] Social History Tobacco Use Types [...] Visit [facility] [address] [place] [address] Jaspreet Nielsen MD [address] [place] [address] [place] [address] documented as of this encounter Visit Diagnoses Not on filedocumented in this encounter Care Teams Emc Storage Architect Relationship Specialty Start Date End Date Tyler Adams NP [address] [place] [address] PCP - General Nurse Practitioner 11/08/22 documented as of this encounter
--- OUTSIDE RECORDS SUMMARY | 2025-04-09 07:10 | XMS_ITS | Clinical Summary ---
Author Organization [facility] Address [address] [place] [address] Phone Care Team Providers Care Financial Dealers Name Role Phone Angie Tyler STEPHENS Primary Care Provider [phone] Allergies Active Allergy Reactions Criticality Noted Date [...] Encounters Date Type Department Care Team Description 03/15/2025 Documentation Only [facility] [address] [place] [address] Shanel Gross 01/21/2025 Documentation Only [facility] [address] [place] [address] Shanel Gross from Last 3 Months [...] Visit [facility] [place] [address] [place] [address] Jaspreet Nielsen MD [address] [facility] [place] [phone] Health Maintenance Due Date Last Done Comments Pneumococcal Vaccine: 50+ Years (1 of 2 - PCV) 02/04/1972 Colorectal Cancer Screening: Annual FOBT 2002 Colorectal Cancer Screening: Colonoscopy 2002 Colorectal Cancer Screening: Sigmoidoscopy 2002 Influenza Vaccine (#1) 2025 2, 03/02/2019, 02/16/2018, Additional history exists Hepatitis B Vaccine Aged Out No longe r eligible based on patient's age to complete this topic Insurance Medicare [facility] Care Teams Financial Dealers Relationship Specialty Start Date End Date Tyler Adams NP [address] [place] [address] PCP - General Nurse Practitioner 11/08/22
== END 2025-04-09 07:08 | disposition home or self-care (01) ==
LOC: HO.CT 07:07
PROVIDERS: PCP Nurse Practitioner Family; Visit Provider Nurse Practitioner Family
DX: F17.200 Nicotine dependence, unspecified, uncomplicated (principal)
CPT/HCPCS: 71250

== ENCOUNTER → 2025-04-09 07:10 | Outpatient (BNV) | payer MEDICARE, OTHER, SELFPAY | PROVIDERS: PCP Nurse Practitioner Family; Visit Provider Nuclear Medicine | DX: R91.8 Other nonspecific abnormal finding of lung field (principal) | CPT/HCPCS: 71250 ==